=== PATIENT | male | born 1940 | race Caucasian/White ===

== ENCOUNTER → 2017-10-19 17:43 | Outpatient (CLI) | payer MEDICARE, MEDICAID, SELFPAY ==
[2017-10-19 18:09] LABS: Add Manual Diff / Slide Review NO; Basophils Percent Auto 0.7 % (0-2); Eosinophils Percent Auto 4.5 % (2-4); Hemoglobin 13.8 g/dL (13.5-17.5); Lymphocytes Percent Auto 31.2 % (25-40); Mean Corpuscular HGB Conc 33.5 % (30-36); Mean Corpuscular Hemoglobin 31.6 PG (26-34); Mean Corpuscular Volume 94.3 fL (80-100); Monocytes Percent Auto 8.5 % (3-14); Neutrophils Absolute Auto 7100 /uL (3000-5900); Neutrophils Percent Auto 55.1 % (50-75); Platelet Count 271 X10^3/uL (150-400); Red Blood Cell Count 4.35 X10^6/uL (4.5-5.9); Red Cell Distribution Width 14.8 % (11.6-14.8); White Blood Cell Count 12.9 X10^3/uL (4.5-11.0)
[2017-10-19 18:22] LABS: Alanine Aminotransferase 18 IU/L (21-72); Albumin 3.9 g/dL (3.5-5.0); Albumin Globulin Ratio 1.1 (1.0-2.8); Alkaline Phosphatase 71 U/L (38-126); Aspartate Aminotransferase 22 IU/L (17-59); BUN Creatinine Ratio 22.9 (6-22); Bilirubin Total 0.3 mg/dL (0.2-1.3); Blood Urea Nitrogen 16 mg/dL (9-20); Calcium 9.1 mg/dL (8.4-10.2); Carbon Dioxide 29 mmol/L (22-32); Chloride 99 mmol/L (98-107); Estimated Glomerular Filt Rate > 60.0 mL/min (>60); Globulin 3.7 g/dL (1.7-4.1); Glucose 134 mg/dL (80-110); HEMOLYSIS < 15 (0-50); Potassium 4.2 mmol/L (3.4-5.1); Sodium 140 mmol/L (137-145); Total Protein 7.6 g/dL (6.3-8.2)
[2018-11-05 10:42] LABS: Cholesterol 188 mg/dL (140-199); HDL Cholesterol 36 mg/dL (40-60); LDL Cholesterol Calculated 115 mg/dL (<100); Triglycerides 184 mg/dL (35-150)
[2018-11-05 10:43] LABS: Alanine Aminotransferase 17 IU/L (21-72); Albumin 3.8 g/dL (3.5-5.0); Albumin Globulin Ratio 1.2 (1.0-2.8); Alkaline Phosphatase 79 U/L (38-126); Aspartate Aminotransferase 22 IU/L (17-59); BUN Creatinine Ratio 17.5 (6-22); Bilirubin Total 0.6 mg/dL (0.2-1.3); Blood Urea Nitrogen 14 mg/dL (9-20); Calcium 9.3 mg/dL (8.4-10.2); Carbon Dioxide 33 mmol/L (22-32); Chloride 96 mmol/L (98-107); Estimated Glomerular Filt Rate > 60.0 mL/min (>60); Globulin 3.3 g/dL (1.7-4.1); Glucose 78 mg/dL (80-110); HEMOLYSIS < 15 (0-50); Potassium 4.4 mmol/L (3.4-5.1); Sodium 138 mmol/L (137-145); Total Protein 7.1 g/dL (6.3-8.2)
== END ==
PROVIDERS: Family Medicine; Visit Provider Family Medicine
DX: R00.1 Bradycardia, unspecified (principal); R60.0 Localized edema
CPT/HCPCS: 36415; 80053; 80061; 83036; 84443; 85025

== ENCOUNTER 2017-11-08 01:15 | Emergency (ER) | payer MEDICARE, MEDICAID, SELFPAY ==
--- NOTE | 2017-11-08 01:23 | ED.BACK ---
HPI - Back Pain/Injury General Chief Complaint: Back Pain/Injury Stated Complaint: Back Pain Time Seen by Provider: 11/08/17 01:22 Source: patient, family and EMS Mode of arrival: EMS Limitations: no limitations History of Present Illness HPI Narrative: Patient is a 69-year-old male presents with back pain. He said 4 days ago he tried to lift a mattress and strained his back. He denies any numbness or tingling down his legs. Has been so painful for him to move that he has been lying in bed. He is able to get up to use the restroom but that is about it. He was previously taking oxycodone for pain however he stopped that 2 days ago. He generally feels pain all over and some nausea. No vomiting. He has had diarrhea as well. He has had no further injury to his back. He did not fall directly onto his back. MD Complaint: fall Duration: constant Related Data Home Medications Medication Instructions Recorded Confirmed ASPIRIN (#ASPIRIN) 81 mg PO QDAY #0 01/07/11 Niacin (#NIACIN) 500 mg PO QDAY #0 01/07/11 Previous Rx's Medication Instructions Recorded atenolol 3 tab PO QDAY #270 tab 06/25/16 ammonium lactate 1 trini TOPICAL BID #225 gm 12/11/16 furosemide 2 mg PO QDAY #90 tab 02/10/17 levothyroxine 150 mcg PO QDAY@0600 #90 tab 03/06/17 mupirocin 1 trini TOPICAL BID #22 gm 03/06/17 potassium chloride 20 meq PO QDAY #180 cap 03/12/17 risperidone [Risperdal] 0.25 mg PO QHS #30 tab 05/29/17 lisinopril [Prinivil] 20 mg PO QDAY #90 tab 08/04/17 Disabled Parking Permit See Label Instructions 10/22/17 [id number] .COMPLEX #1 [id number] oxycodone-acetaminophen 7.5 mg-325 1 tab PO TID PRN #90 tab 10/22/17 mg tablet oxybutynin chloride ER 15 mg 15 mg PO DAILY #90 tab 10/27/17 tablet,extended release 24 hr escitalopram 20 mg tablet 20 mg PO QDAY #90 tab 10/28/17 omeprazole 40 mg capsule,delayed 40 mg PO QAM #90 cap 10/28/17 release cyclobenzaprine 5 mg PO TID PRN #10 tab 11/08/17 tramadol 50 mg PO Q6H PRN #10 tab 11/08/17 Allergies Allergy/AdvReac Type Severity Reaction Status Date / Time codeine [CODEINE] Allergy Unknown unknown Verified 11/08/17 01:40 Review of Systems Review of Systems All systems reviewed & are unremarkable except as noted in HPI and below Constitutional Reports body ache(s), Reports fatigue, Denies fever(s) and Denies frequent falls Cardiovascular Denies chest pain, Denies syncope and Denies dyspnea Respiratory Denies cough and Denies dyspnea Gastrointestinal Gastrointestinal: Reports loose stools and Reports nausea Musculoskeletal Reports as per HPI, Reports back pain, Denies numbness and Denies tingling Integumentary/Breasts Denies pruritus, Denies erythema, Denies rash and Denies wounds Neurologic Denies syncope, Denies frequent falls, Denies numbness and Denies tingling Endocrine Reports fatigue PFSH Medical History Lymphedema (Acute) Hypertension (Chronic) Morbid obesity (Chronic) Urinary incontinence (Chronic 2013) Social History Smoking Status: Never smoker Exam Initial Vital Signs Initial Vital Signs: Vital Signs Temperature 98.1 F 11/08/17 01:26 Pulse Rate 68 11/08/17 01:26 Respiratory Rate 18 11/08/17 01:26 Blood Pressure 160/81 H 11/08/17 01:26 Pulse Oximetry 96 11/08/17 01:26 Const General: cooperative and comfortable Nutritional Appearance: overweight Orientation: alert, awake and oriented x3 Chest Chest: normal inspection of the chest Resp Effort & Inspection: normal respiratory effort Cardio Rhythm: regular rhythm Heart Sounds: S1 normal and S2 normal GI Palpation: soft, No guarding and No tender Back/Spine/Pelvis Back: normal to inspection Thoracic/Lumbar Spine: paraspinal tenderness, No lumbar spinal tenderness and other (Pain all across all lower back and lumbar area) Neuro General: alert, awake and oriented x3 Cranial Nerves: CN's II-XI intact bilaterally Speech: speech normal Course Orders Ordered: Discontinued Medications Cyclobenzaprine HCl (Flexeril) 5 mg PO NOW ONE Stop: 11/08/17 01:25 Last Admin: 11/08/17 01:45 Dose: 5 mg Cyclobenzaprine HCl (Flexeril 10 Mg Prepack) 5 bottle [facility] Last Admin: 11/08/17 02:39 Dose: 1 bottle Cyclobenzaprine HCl (Flexeril 10 Mg Prepack) 1 bottle [facility] Ketorolac Tromethamine (Toradol) 30 mg IM NOW ONE Stop: 11/08/17 01:25 Last Admin: 11/08/17 01:44 Dose: 30 mg Tramadol HCl (Ultram 50mg Prepack) 1 bottle [facility] ONE Stop: 11/08/17 02:28 Last Admin: 11/08/17 02:34 Dose: 1 bottle Tramadol HCl (Ultram) 100 mg PO NOW ONE Stop: 11/08/17 02:28 Last Admin: 11/08/17 02:34 Dose: 100 mg Vital Signs - 8 hr 11/08/17 01:26 11/08/17 03:14 Temperature 98.1 F 98.8 F Pulse Rate 68 69 Respiratory Rate 18 18 Blood Pressure 160/81 H 181/83 H Pulse Oximetry 96 98 MDM - Back Pain/Injury MDM Narrative Medical decision making narrative: Patient's pain is slightly better after Toradol and Flexeril. He is able to stand and take a few steps with a walker. However he does have 3 short steps to get into his house. Now his back pain is slightly worse. Initially he did not want to get back on any kind of opiate or narcotic medications. However at this time he is agreeable to try tramadol. Pain better after tramadol and ready to go home. Discharge Plan Departure Patient Disposition: Home, Self-Care Clinical Impression: Strain of lumbar region Discharge Date/Time: 11/08/17 03:15 Interventions: ED Discharge Assessment Last Done: 11/08/17 03:14 Instructions: DI for Low Back Pain Activity Restrictions/Additional Instructions: *You have been diagnosed with low back strain *What to do: Increase activity as tolerated, light activity is encouraged, heating pad as needed *Continue to take medications as directed -Flexeril every 8 hr if needed for muscle spasm -Tylenol 500 mg every 4 hr or 1000 mg every 6 hr if needed for mild pain -Tramadol 50-100 mg every 6 hr if needed for severe pain *Follow up with your primary care provider in 2-3 days *Return to ER if you should have weakness, increasing pain, loss of urine or bowel or any new, worsening or concerning symptoms Prescriptions: New tramadol 50 mg tablet 50 mg PO Q6H PRN (Reason: pain) Qty: 10 RF: 0 cyclobenzaprine 5 mg tablet 5 mg PO TID PRN (Reason: muscle spasm) Qty: 10 RF: 0 No Action ASPIRIN (#ASPIRIN) 81 mg PO QDAY Qty: 0 RF: 0 Niacin (#NIACIN) 500 mg PO QDAY Qty: 0 RF: 0 atenolol 25 MG tablet 3 tab PO QDAY Qty: 270 RF: 3 ammonium lactate 12 % lotion 1 trini Topical BID Qty: 225 RF: 3 furosemide 40 MG tablet 2 mg PO QDAY Qty: 90 RF: 3 levothyroxine 150 MCG tablet 150 mcg PO QDAY@0600 Qty: 90 RF: 3 mupirocin 2 % ointment 1 trini Topical BID Qty: 22 RF: 0 potassium chloride 10 MEQ capsule, extended release 20 meq PO QDAY Qty: 180 RF: 1 risperidone [Risperdal] 0.25 MG tablet 0.25 mg PO QHS Qty: 30 RF: 3 lisinopril [Prinivil] 20 MG tablet 20 mg PO QDAY Qty: 90 RF: 3 oxybutynin chloride 15 mg tablet extended release 24hr 15 mg PO DAILY Qty: 90 RF: 3 escitalopram oxalate [Lexapro] 20 mg tablet 20 mg PO QDAY Qty: 90 RF: 1 omeprazole 40 mg capsule,delayed release(DR/EC) 40 mg PO QAM Qty: 90 RF: 1 Disabled Parking Permit See Label Instructions [id number] .COMPLEX Qty: 1 RF: 0 oxycodone-acetaminophen 7.5-325 mg tablet 1 tab PO TID PRN (Reason: pain) Qty: 90 RF: 0 Referrals: [facility] [Provider Group]
[2017-11-08 01:26] VITALS: BP 160/81; PULSE 68; RESP 18; TEMP 36.7; O2SAT 96; BMI 60.2
[2017-11-08] MEDS: KETOROLAC 60 MG/2 ML VIAL 30 MG IM (01:44)
[2017-11-08] MEDS: CYCLOBENZAPRINE 5 MG TABLET PO (01:45)
--- NOTE | 2017-11-08 02:11 | ED_ITS ---
HPI - Back Pain/Injury General Chief Complaint: Back Pain/Injury Stated Complaint: Back Pain Time Seen by Provider: 11/08/17 01:22 Source: patient, family and EMS Mode of arrival: EMS Limitations: no limitations History of Present Illness HPI Narrative: Patient is a 69-year-old male presents with back pain. He said 4 days ago he tried to lift a mattress and strained his back. He denies any numbness or tingling down his legs. Has been so painful for him to move that he has been lying in bed. He is able to get up to use the restroom but that is about it. He was previously taking oxycodone for pain however he stopped that 2 days ago. He generally feels pain all over and some nausea. No vomiting. He has had diarrhea as well. He has had no further injury to his back. He did not fall directly onto his back. MD Complaint: fall Duration: constant Related Data Home Medications Medication Instructions Recorded Confirmed ASPIRIN (#ASPIRIN) 81 mg PO QDAY #0 01/07/11 Niacin (#NIACIN) 500 mg PO QDAY #0 01/07/11 Previous Rx's Medication Instructions Recorded atenolol 3 tab PO QDAY #270 tab 06/25/16 ammonium lactate 1 trini TOPICAL BID #225 gm 12/11/16 furosemide 2 mg PO QDAY #90 tab 02/10/17 levothyroxine 150 mcg PO QDAY@0600 #90 tab 03/06/17 mupirocin 1 trini TOPICAL BID #22 gm 03/06/17 potassium chloride 20 meq PO QDAY #180 cap 03/12/17 risperidone [Risperdal] 0.25 mg PO QHS #30 tab 05/29/17 lisinopril [Prinivil] 20 mg PO QDAY #90 tab 08/04/17 Disabled Parking Permit See Label Instructions 10/22/17 [id number] .COMPLEX #1 [id number] oxycodone-acetaminophen 7.5 mg-325 1 tab PO TID PRN #90 tab 10/22/17 mg tablet oxybutynin chloride ER 15 mg 15 mg PO DAILY #90 tab 10/27/17 tablet,extended release 24 hr escitalopram 20 mg tablet 20 mg PO QDAY #90 tab 10/28/17 omeprazole 40 mg capsule,delayed 40 mg PO QAM #90 cap 10/28/17 release cyclobenzaprine 5 mg PO TID PRN #10 tab 11/08/17 tramadol 50 mg PO Q6H PRN #10 tab 11/08/17 Allergies Allergy/AdvReac Type Severity Reaction Status Date / Time codeine [CODEINE] Allergy Unknown unknown Verified 11/08/17 01:40 Review of Systems Review of Systems All systems reviewed & are unremarkable except as noted in HPI and below Constitutional Reports body ache(s), Reports fatigue, Denies fever(s) and Denies frequent falls Cardiovascular Denies chest pain, Denies syncope and Denies dyspnea Respiratory Denies cough and Denies dyspnea Gastrointestinal Gastrointestinal: Reports loose stools and Reports nausea Musculoskeletal Reports as per HPI, Reports back pain, Denies numbness and Denies tingling Integumentary/Breasts Denies pruritus, Denies erythema, Denies rash and Denies wounds Neurologic Denies syncope, Denies frequent falls, Denies numbness and Denies tingling Endocrine Reports fatigue PFSH Medical History Lymphedema (Acute) Hypertension (Chronic) Morbid obesity (Chronic) Urinary incontinence (Chronic 2013) Social History Smoking Status: Never smoker Exam Initial Vital Signs Initial Vital Signs: Vital Signs Temperature 98.1 F 11/08/17 01:26 Pulse Rate 68 11/08/17 01:26 Respiratory Rate 18 11/08/17 01:26 Blood Pressure 160/81 H 11/08/17 01:26 Pulse Oximetry 96 11/08/17 01:26 Const General: cooperative and comfortable Nutritional Appearance: overweight Orientation: alert, awake and oriented x3 Chest Chest: normal inspection of the chest Resp Effort & Inspection: normal respiratory effort Cardio Rhythm: regular rhythm Heart Sounds: S1 normal and S2 normal GI Palpation: soft, No guarding and No tender Back/Spine/Pelvis Back: normal to inspection Thoracic/Lumbar Spine: paraspinal tenderness, No lumbar spinal tenderness and other (Pain all across all lower back and lumbar area) Neuro General: alert, awake and oriented x3 Cranial Nerves: CN's II-XI intact bilaterally Speech: speech normal Course Orders Ordered: Discontinued Medications Cyclobenzaprine HCl (Flexeril) 5 mg PO NOW ONE Stop: 11/08/17 01:25 Last Admin: 11/08/17 01:45 Dose: 5 mg Cyclobenzaprine HCl (Flexeril 10 Mg Prepack) [address] [facility] Last Admin: 11/08/17 02:39 Dose: 1 bottle Cyclobenzaprine HCl (Flexeril 10 Mg Prepack) [address] [facility] Ketorolac Tromethamine (Toradol) 30 mg IM NOW ONE Stop: 11/08/17 01:25 Last Admin: 11/08/17 01:44 Dose: 30 mg Tramadol HCl (Ultram 50mg Prepack) 1 bottle [facility] ONE Stop: 11/08/17 02:28 Last Admin: 11/08/17 02:34 Dose: 1 bottle Tramadol HCl (Ultram) 100 mg PO NOW ONE Stop: 11/08/17 02:28 Last Admin: 11/08/17 02:34 Dose: 100 mg Vital Signs - 8 hr 11/08/17 01:26 11/08/17 03:14 Temperature 98.1 F 98.8 F Pulse Rate 68 69 Respiratory Rate 18 18 Blood Pressure 160/81 H 181/83 H Pulse Oximetry 96 98 MDM - Back Pain/Injury MDM Narrative Medical decision making narrative: Patient's pain is slightly better after Toradol and Flexeril. He is able to stand and take a few steps with a walker. However he does have 3 short steps to get into his house. Now his back pain is slightly worse. Initially he did not want to get back on any kind of opiate or narcotic medications. However at this time he is agreeable to try tramadol. Pain better after tramadol and ready to go home. Discharge Plan Departure Patient Disposition: Home, Self-Care Clinical Impression: Strain of lumbar region Discharge Date/Time: 11/08/17 03:15 Interventions: ED Discharge Assessment Last Done: 11/08/17 03:14 Instructions: DI for Low Back Pain Activity Restrictions/Additional Instructions: *You have been diagnosed with low back strain *What to do: Increase activity as tolerated, light activity is encouraged, heating pad as needed *Continue to take medications as directed -Flexeril every 8 hr if needed for muscle spasm -Tylenol 500 mg every 4 hr or 1000 mg every 6 hr if needed for mild pain -Tramadol 50-100 mg every 6 hr if needed for severe pain *Follow up with your primary care provider in 2-3 days *Return to ER if you should have weakness, increasing pain, loss of urine or bowel or any new, worsening or concerning symptoms Prescriptions: New tramadol 50 mg tablet 50 mg PO Q6H PRN (Reason: pain) Qty: 10 RF: 0 cyclobenzaprine 5 mg tablet 5 mg PO TID PRN (Reason: muscle spasm) Qty: 10 RF: 0 No Action ASPIRIN (#ASPIRIN) 81 mg PO QDAY Qty: 0 RF: 0 Niacin (#NIACIN) 500 mg PO QDAY Qty: 0 RF: 0 atenolol 25 MG tablet 3 tab PO QDAY Qty: 270 RF: 3 ammonium lactate 12 % lotion 1 trini Topical BID Qty: 225 RF: 3 furosemide 40 MG tablet 2 mg PO QDAY Qty: 90 RF: 3 levothyroxine 150 MCG tablet 150 mcg PO QDAY@0600 Qty: 90 RF: 3 mupirocin 2 % ointment 1 trini Topical BID Qty: 22 RF: 0 potassium chloride 10 MEQ capsule, extended release 20 meq PO QDAY Qty: 180 RF: 1 risperidone [Risperdal] 0.25 MG tablet 0.25 mg PO QHS Qty: 30 RF: 3 lisinopril [Prinivil] 20 MG tablet 20 mg PO QDAY Qty: 90 RF: 3 oxybutynin chloride 15 mg tablet extended release 24hr 15 mg PO DAILY Qty: 90 RF: 3 escitalopram oxalate [Lexapro] 20 mg tablet 20 mg PO QDAY Qty: 90 RF: 1 omeprazole 40 mg capsule,delayed release(DR/EC) 40 mg PO QAM Qty: 90 RF: 1 Disabled Parking Permit See Label Instructions [id number] .COMPLEX Qty: 1 RF: 0 oxycodone-acetaminophen 7.5-325 mg tablet 1 tab PO TID PRN (Reason: pain) Qty: 90 RF: 0 Referrals: [facility] [Provider Group]
[2017-11-08] MEDS: TRAMADOL 50 MG PREPACK 1 BOTTLE MISC (02:34)
[2017-11-08] MEDS: TRAMADOL 50 MG TABLET 100 MG PO (02:34)
--- NOTE | 2017-11-08 02:38 | PC.NURSE ---
Pt unable to lift leg to step, Dr Romeo is aware, new orders received.
[2017-11-08] MEDS: CYCLOBENZAPRINE 10 MG PREPACK 5 BOTTLE MISC (02:39)
[2017-11-08 03:14] VITALS: BP 181/83; PULSE 69; RESP 18; TEMP 37.1; O2SAT 98
== END 2017-11-08 03:15 | disposition home or self-care (01) ==
PROVIDERS: Emergency Provider Emergency Medicine
DX: S39.012A Strain of muscle, fascia and tendon of lower back, initial encounter (principal); X50.9XXA Other and unspecified overexertion or strenuous movements or postures, initial encounter
CPT/HCPCS: 96372; 99282; 99283; J1885

== ENCOUNTER 2017-11-13 12:35 | Inpatient (IN) | payer MEDICARE, MEDICAID, SELFPAY ==
[2017-11-13] VITALS (8 sets, daily range): BP systolic 149–164; BP diastolic 71–95; PULSE 75–88; RESP 16–24; TEMP 36.3–36.7; O2SAT 95–97; BMI 57.9
--- NOTE | 2017-11-13 13:08 | ED.BACK ---
HPI - Back Pain/Injury <VICKY Lr - Last Filed: 11/13/17 22:08> General Chief Complaint: Back Pain/Injury Stated Complaint: back pain Time Seen by Provider: 11/13/17 13:08 Source: patient and family Limitations: no limitations History of Present Illness HPI Narrative: 77-year-old male with history of morbid obesity here for lower back pain. He states he has had lower back pain for the last several weeks. He was seen here in the emergency room last week and was prescribed tramadol which she states has been helping his pain. However he still having back pain and states has been having a hard time getting out of bed over the last several days. He reports that he actually fell today trying to get out of bed causing him to land on his buttocks area. He reports he has increased pain into his lumbar area since this timeframe. He states that he does have urinary incontinence however he states he has had this over the past year and is not a new finding. He denies having any loss of bowel control. He has good sensation to bilateral lower extremities. He denies any other injuries or concerns at this point. Complaint: back injury Related Data Home Medications Medication Instructions Recorded Confirmed aspirin 81 mg PO DAILY #0 01/07/11 11/13/17 atenolol 1 tab PO QDAY 11/13/17 11/14/17 furosemide 2 tab PO QDAY 11/13/17 11/13/17 Previous Rx's Medication Instructions Recorded ammonium lactate 1 trini TOPICAL BID #225 gm 12/11/16 levothyroxine 150 mcg PO QDAY@0600 #90 tab 03/06/17 potassium chloride 20 meq PO QDAY #180 cap 03/12/17 lisinopril [Prinivil] 20 mg PO QDAY #90 tab 08/04/17 Disabled Parking Permit See Label Instructions 10/22/17 [id number] .COMPLEX #1 [id number] escitalopram 20 mg tablet 20 mg PO QDAY #90 tab 10/28/17 omeprazole 40 mg capsule,delayed 40 mg PO QAM #90 cap 10/28/17 release Allergies Allergy/AdvReac Type Severity Reaction Status Date / Time codeine [CODEINE] Allergy Unknown unknown Verified 11/13/17 12:50 Review of Systems <VICKY Lr - Last Filed: 11/13/17 22:08> Constitutional Denies chills, Denies fever(s), Denies lethargy and Denies weakness Eyes Denies change in vision, Denies eye discharge, Denies irritation and Denies loss of vision ENT Ears, Nose, Mouth, and Throat: Denies change in voice, Denies neck pain and Denies sore throat Cardiovascular Denies chest pain, Denies irregular heart rhythm, Denies lightheadedness, Denies palpitations, Denies dyspnea, Denies dyspnea on exertion and Denies orthopnea Respiratory Denies cough, Denies dyspnea, Denies dyspnea on exertion and Denies wheezing Gastrointestinal Gastrointestinal: Denies abdominal pain, Denies change in bowel habits, Denies diarrhea, Denies nausea and Denies vomiting Genitourinary Denies hematuria, Denies flank pain, Denies urinary incontinence and Denies urinary urgency Musculoskeletal Reports back pain and Denies neck pain Integumentary/Breasts Denies pruritus, Denies erythema, Denies rash and Denies wounds Neurologic Denies confusion, Denies loss of vision and Denies weakness Psychiatric Denies anxiety, Denies confusion, Denies depression, Denies homicidal ideation and Denies suicidal ideation Endocrine Denies palpitations Hematologic/Lymphatic Denies easy bruising Allergic/Immunologic Denies wheezing Exam <Lázaro Galindo, [facility] - Last Filed: 11/13/17 22:08> Initial Vital Signs Initial Vital Signs: Vital Signs Temperature 97.8 F 11/13/17 12:50 Pulse Rate 86 11/13/17 12:50 Respiratory Rate 16 11/13/17 12:50 Blood Pressure 162/79 H 11/13/17 12:50 Pulse Oximetry 97 11/13/17 12:50 Const General: cooperative and well developed Nutritional Appearance: well nourished Orientation: alert, awake, oriented x3 and not confused [facility] Mouth: oral mucosae normal and moist mucous membranes Throat: tonsils normal and uvula midline Eyes Conjunctivae: conjunctivae normal Sclera: sclerae normal Pupils: PERRL EOM: EOM intact bilaterally Resp Effort & Inspection: normal respiratory effort, able to speak in complete sentences, no respiratory distress and no use of accessory muscles Auscultation: clear to auscultation bilaterally, no rales, no rhonchi and no wheezes Cardio Rate: regular rate Rhythm: regular rhythm Heart Sounds: no click, no gallops, no murmurs and no rubs GI Inspection: non-distended Palpation: soft, no hepatosplenomegaly, No guarding, No pulsatile mass and No tender Auscultation: normal bowel sounds Rectal Exam: visual inspection normal, normal sphincter tone and prostate normal Back/Spine/Pelvis Back: back tenderness Other: Tenderness into bilateral lumbar paraspinal. No deformities. No ecchymoses. Distal sensation is intact. Distal range of motion is intact. Unable to palpate distal pulses due to significant edema to bilateral lower extremities not new finding. Distal cap refill less than 2 sec. Skin General: no rashes or lesions noted, No jaundice and No petechiae Neuro General: alert, oriented x3, moves all extremities and no focal motor deficits Speech: speech normal Extrem Right lower extremity: edema Left lower extremity: edema <Giancarlo Drew MD - Last Filed: 11/16/17 08:37> Initial Vital Signs Initial Vital Signs: Vital Signs Temperature 97.8 F 11/13/17 12:50 Pulse Rate 86 11/13/17 12:50 Respiratory Rate 16 11/13/17 12:50 Blood Pressure 162/79 H 11/13/17 12:50 Pulse Oximetry 97 11/13/17 12:50 Course <VICKY Lr - Last Filed: 11/13/17 22:08> Orders Ordered: Hydrocodone Bitart/Acetaminophen ([place] 10/325) 1 tab PO Q4HR PRN PRN Reason: Pain, Moderate (4-6) Last Admin: 11/15/17 20:29 Dose: 1 tab Admin: 11/15/17 14:28 Dose: 1 tab Admin: 11/15/17 10:13 Dose: 1 tab Admin: 11/15/17 06:14 Dose: 1 tab Admin: 11/14/17 18:33 Dose: 1 tab Admin: 11/14/17 14:35 Dose: 1 tab Admin: 11/14/17 09:30 Dose: 1 tab Admin: 11/14/17 03:32 Dose: 1 tab Admin: 11/13/17 20:54 Dose: 1 tab Atenolol (Tenormin) 25 mg PO DAILY [facility] Last Admin: 11/15/17 08:57 Dose: 25 mg Enoxaparin Sodium (Lovenox) 40 mg SUBCUT DAILY [facility] Last Admin: 11/15/17 08:57 Dose: 40 mg Escitalopram Oxalate (Lexapro) 20 mg PO DAILY [facility] Last Admin: 11/15/17 08:57 Dose: 20 mg Hydromorphone HCl (Dilaudid) 1 mg IV Q3H PRN PRN Reason: Pain, Moderate (4-6) Last Admin: 11/15/17 22:47 Dose: 1 mg Lisinopril (Zestril) 20 mg PO DAILY [facility] Last Admin: 11/15/17 08:57 Dose: 20 mg Magnesium Hydroxide (Milk Of Magnesia) 30 ml PO DAILY PRN PRN Reason: Constipation Nystatin (Nystop) 1 applic TOP BID [facility] Last Admin: 11/15/17 20:03 Dose: 1 applic Admin: 11/15/17 14:14 Dose: 1 applic Pantoprazole Sodium (Protonix) 40 mg PO 0700 [facility] Last Admin: 11/16/17 07:34 Dose: 40 mg Admin: 11/15/17 06:01 Dose: 40 mg Admin: 11/14/17 07:00 Dose: 40 mg Sodium Chloride (Normal Saline 0.9% Flush) 10 ml IV BID [facility] Last Admin: 11/15/17 20:03 Dose: 10 ml Admin: 11/15/17 08:57 Dose: 10 ml Sodium Chloride (Normal Saline 0.9% Flush) 10 ml IV PRN PRN PRN Reason: Flush Discontinued Medications Aspirin (Aspirin Ec) 81 mg PO DAILY [facility] Atenolol (Tenormin) 25 mg PO NOW ONE Stop: 11/14/17 18:47 Last Admin: 11/14/17 19:37 Dose: 25 mg Enoxaparin Sodium (Lovenox) 40 mg SUBCUT DAILY [facility] Escitalopram Oxalate (Lexapro) 20 mg PO DAILY [facility] Levothyroxine Sodium (Synthroid) 150 mcg PO 0600 [facility] Lisinopril (Zestril) 20 mg PO DAILY [facility] Lisinopril (Zestril) 20 mg PO NOW ONE Stop: 11/14/17 18:47 Last Admin: 11/14/17 19:37 Dose: 20 mg Ondansetron HCl (Zofran) 4 mg IV Q6HR PRN PRN Reason: Nausea And Vomiting Potassium Chloride (Klor-Con M10) 20 meq PO DAILY [facility] Tramadol HCl (Ultram) 50 mg PO NOW ONE Stop: 11/13/17 13:50 Last Admin: 11/13/17 14:14 Dose: 50 mg Vital Signs - 8 hr 11/16/17 05:36 11/16/17 07:00 Temperature 98.5 F Pulse Rate 88 Respiratory Rate 18 Blood Pressure 146/68 H Pulse Oximetry 95 92 <Giancarlo Drew MD - Last Filed: 11/16/17 08:37> Orders Ordered: Hydrocodone Bitart/Acetaminophen ([place] 10/325) 1 tab PO Q4HR PRN PRN Reason: Pain, Moderate (4-6) Last Admin: 11/15/17 20:29 Dose: 1 tab Admin: 11/15/17 14:28 Dose: 1 tab Admin: 11/15/17 10:13 Dose: 1 tab Admin: 11/15/17 06:14 Dose: 1 tab Admin: 11/14/17 18:33 Dose: 1 tab Admin: 11/14/17 14:35 Dose: 1 tab Admin: 11/14/17 09:30 Dose: 1 tab Admin: 11/14/17 03:32 Dose: 1 tab Admin: 11/13/17 20:54 Dose: 1 tab Atenolol (Tenormin) 25 mg PO DAILY [facility] Last Admin: 11/15/17 08:57 Dose: 25 mg Enoxaparin Sodium (Lovenox) 40 mg SUBCUT DAILY [facility] Last Admin: 11/15/17 08:57 Dose: 40 mg Escitalopram Oxalate (Lexapro) 20 mg PO DAILY [facility] Last Admin: 11/15/17 08:57 Dose: 20 mg Hydromorphone HCl (Dilaudid) 1 mg IV Q3H PRN PRN Reason: Pain, Moderate (4-6) Last Admin: 11/15/17 22:47 Dose: 1 mg Lisinopril (Zestril) 20 mg PO DAILY [facility] Last Admin: 11/15/17 08:57 Dose: 20 mg Magnesium Hydroxide (Milk Of Magnesia) 30 ml PO DAILY PRN PRN Reason: Constipation Nystatin (Nystop) 1 applic TOP BID [facility] Last Admin: 11/15/17 20:03 Dose: 1 applic Admin: 11/15/17 14:14 Dose: 1 applic Pantoprazole Sodium (Protonix) 40 mg PO 0700 [facility] Last Admin: 11/16/17 07:34 Dose: 40 mg Admin: 11/15/17 06:01 Dose: 40 mg Admin: 11/14/17 07:00 Dose: 40 mg Sodium Chloride (Normal Saline 0.9% Flush) 10 ml IV BID [facility] Last Admin: 11/15/17 20:03 Dose: 10 ml Admin: 11/15/17 08:57 Dose: 10 ml Sodium Chloride (Normal Saline 0.9% Flush) 10 ml IV PRN PRN PRN Reason: Flush Discontinued Medications Aspirin (Aspirin Ec) 81 mg PO DAILY [facility] Atenolol (Tenormin) 25 mg PO NOW ONE Stop: 11/14/17 18:47 Last Admin: 11/14/17 19:37 Dose: 25 mg Enoxaparin Sodium (Lovenox) 40 mg SUBCUT DAILY [facility] Escitalopram Oxalate (Lexapro) 20 mg PO DAILY [facility] Levothyroxine Sodium (Synthroid) 150 mcg PO 0600 [facility] Lisinopril (Zestril) 20 mg PO DAILY [facility] Lisinopril (Zestril) 20 mg PO NOW ONE Stop: 11/14/17 18:47 Last Admin: 11/14/17 19:37 Dose: 20 mg Ondansetron HCl (Zofran) 4 mg IV Q6HR PRN PRN Reason: Nausea And Vomiting Potassium Chloride (Klor-Con M10) 20 meq PO DAILY [facility] Tramadol HCl (Ultram) 50 mg PO NOW ONE Stop: 11/13/17 13:50 Last Admin: 11/13/17 14:14 Dose: 50 mg Vital Signs - 8 hr 11/16/17 05:36 11/16/17 07:00 Temperature 98.5 F Pulse Rate 88 Respiratory Rate 18 Blood Pressure 146/68 H Pulse Oximetry 95 92 MDM - Back Pain/Injury <VICKY Lr - Last Filed: 11/13/17 22:08> Lab Data Result diagrams: 11/15/17 05:07 11/15/17 05:07 Lab Results 11/15/17 11/15/17 Range/Units 05:07 05:07 WBC 9.9 (4.5-11.0) X10^3/uL RBC 4.46 L (4.5-5.9) X10^6/uL Hgb 14.1 (13.5-17.5) g/dL Hct 41.9 (41-53) % MCV 93.9 (80-100) fL MCH 31.6 (26-34) PG MCHC 33.7 (30-36) % RDW 14.6 (11.6-14.8) % Plt Count 327 (150-400) X10^3/uL Neut % (Auto) 57.4 (50-75) % Lymph % (Auto) 24.1 L (25-40) % [place] % (Auto) 10.9 (3-14) % Eos % (Auto) 6.7 H (2-4) % Baso % (Auto) 0.9 (0-2) % Neut # (Auto) 5700 (5127-2161) /uL Sodium 137 (137-145) mmol/L Potassium 3.5 (3.4-5.1) mmol/L Chloride 99 (98-107) mmol/L Carbon Dioxide 32 (22-32) mmol/L BUN 10 (9-20) mg/dL Creatinine 0.60 L (0.66-1.25) mg/dL Estimated GFR > 60.0 (>60) mL/min BUN/Creatinine Ratio 16.7 (6-22) Glucose 105 (80-110) mg/dL Calcium 8.7 (8.4-10.2) mg/dL Total Bilirubin 0.5 (0.2-1.3) mg/dL AST 21 (17-59) IU/L ALT 21 (21-72) IU/L Alkaline Phosphatase 73 (38-126) U/L Total Protein 6.6 (6.3-8.2) g/dL Albumin 3.2 L (3.5-5.0) g/dL Globulin 3.4 (1.7-4.1) g/dL Albumin/Globulin Ratio 0.9 L (1.0-2.8) ECG Data Interpretation: Patient: Adiel Iniguez MR#: [id number] : 1940 Acct:[id number] Age/Sex: 77 / M Date of Service: 11/13/17 Loc: ED Accession Number: [id number] Procedure: CT lumbar spine wo con Ordering Provider: Lázaro Galindo PROCEDURE: CT LUMBAR SPINE WO CON INDICATIONS: Pain into lower back status post ground level fall today TECHNIQUE: Noncontrast 3 mm thick sections acquired from the T12 level to the sacrum. Sagittal and coronal reformats were constructed. For radiation dose reduction, the following was used: automated exposure control. COMPARISON: None. FINDINGS: Image quality: Excellent. Bones: There is normal bony alignment. Age indeterminant anterior wedge compression deformity involving L1 vertebral body is seen with up to 80% loss of L1 vertebral body height. Air is seen within the anterior portion of compressed L1 vertebral body with vacuum disc phenomenon is seen in T12-L1 and L1-2 levels. There is slight retropulsion of L1 posterior wall causing [id number] central canal stenosis at this level. Decreased intervertebral disc space and degenerative endplate changes also noted at L5-S1 level with vacuum disc phenomenon. No suspicious lytic or blastic bony lesions. Central spinal caliber is of normal overall caliber. No pars defects. T12-L1: No significant disc bulge, canal stenosis or neuroforamina narrowing. L1-L2: No significant disc bulge, canal stenosis or neuroforamina narrowing L2-L3: No significant disc bulge, canal stenosis or neural foramina narrowing. L3-L4: No significant disc bulge, canal stenosis or neural foramina narrowing. Bilateral facet arthrosis is seen.. L4-L5: There is suggestion of diffuse disc bulge and bilateral facet arthrosis causing mild to moderate central canal stenosis and bilateral neural foramina narrowing. L5-S1: There is diffuse disc bulge and bilateral facet arthrosis causing mild central canal stenosis and bilateral neuroforamina narrowing. Soft tissues: No retroperitoneal masses or hematomas. Visualized aorta is normal in caliber. IMPRESSION: 1. Age indeterminate anterior wedge compression deformity involving L1 vertebral body as described above with up to 80% loss of L1 vertebral body height anteriorly. Mild retropulsion of posterior wall causing mild central canal stenosis at L1 level. 2. Degenerative disc bulge and bilateral facet arthrosis at L4-5 and L5-S1 levels causing mild to moderate central canal stenosis and bilateral neural foramina narrowing. 3. No other compression fracture or traumatic spondylolisthesis. Dictated by: Prashant Jacobs M.D. on 11/13/2017 at 14:12 Approved by: Prashant Jacobs M.D. on 11/13/2017 at 14:23 MDM Narrative Medical decision making narrative: CT of the lumbar spine was obtained and shows compression fracture to L1 and also some stenosis to L4-L5 area. Compression fracture with undetermined age. Suspected that the compression fracture is cause of his pain and if he had this prior is cause of exacerbation of his pain. Patient states that he is unable to get out of bed and walk. Family states that they cannot move him due to his size at this timeframe. Discussed case with hospitalist agree to admit patient to observation. Discussed with family for family to look at care after discharge tomorrow or the next day either in a care facility or with family members. <Giancalro Drwe MD - Last Filed: 11/16/17 08:37> Lab Data Lab Results 11/15/17 11/15/17 Range/Units 05:07 05:07 WBC 9.9 (4.5-11.0) X10^3/uL RBC 4.46 L (4.5-5.9) X10^6/uL Hgb 14.1 (13.5-17.5) g/dL Hct 41.9 (41-53) % MCV 93.9 (80-100) fL MCH 31.6 (26-34) PG MCHC 33.7 (30-36) % RDW 14.6 (11.6-14.8) % Plt Count 327 (150-400) X10^3/uL Neut % (Auto) 57.4 (50-75) % Lymph % (Auto) 24.1 L (25-40) % [place] % (Auto) 10.9 (3-14) % Eos % (Auto) 6.7 H (2-4) % Baso % (Auto) 0.9 (0-2) % Neut # (Auto) 5700 (1231-4609) /uL Sodium 137 (137-145) mmol/L Potassium 3.5 (3.4-5.1) mmol/L Chloride 99 (98-107) mmol/L Carbon Dioxide 32 (22-32) mmol/L BUN 10 (9-20) mg/dL Creatinine 0.60 L (0.66-1.25) mg/dL Estimated GFR > 60.0 (>60) mL/min BUN/Creatinine Ratio 16.7 (6-22) Glucose 105 (80-110) mg/dL Calcium 8.7 (8.4-10.2) mg/dL Total Bilirubin 0.5 (0.2-1.3) mg/dL AST 21 (17-59) IU/L ALT 21 (21-72) IU/L Alkaline Phosphatase 73 (38-126) U/L Total Protein 6.6 (6.3-8.2) g/dL Albumin 3.2 L (3.5-5.0) g/dL Globulin 3.4 (1.7-4.1) g/dL Albumin/Globulin Ratio 0.9 L (1.0-2.8) Discharge Plan Departure Patient Disposition: Admitted As Inpatient Clinical Impression: Lower back pain Discharge Date/Time: 11/13/17 16:23 Interventions: ED Discharge Assessment Last Done: 11/13/17 16:22 Admit Date/Time: 11/13/17 16:00 Admit Provider: Augie Elkins <Giancarlo Drew MD - Last Filed: 11/16/17 08:37> Sign Out Provider Sign Out Attestation: The PA/TECHNICAL ASSOCIATE functioned independently for the care of this pt, I was available, but not asked to participate in care. I am unable to determine appropriateness of management without personally examining the pt.
--- NOTE | 2017-11-13 13:49 | DI.CT.S_ITS ---
PROCEDURE: CT LUMBAR SPINE WO CON INDICATIONS: Pain into lower back status post ground level fall today TECHNIQUE: Noncontrast 3 mm thick sections acquired from the T12 level to the sacrum. Sagittal and coronal reformats were constructed. For radiation dose reduction, the following was used: automated exposure control. COMPARISON: None. FINDINGS: Image quality: Excellent. Bones: There is normal bony alignment. Age indeterminant anterior wedge compression deformity involving L1 vertebral body is seen with up to 80% loss of L1 vertebral body height. Air is seen within the anterior portion of compressed L1 vertebral body with vacuum disc phenomenon is seen in T12-L1 and L1-2 levels. There is slight retropulsion of L1 posterior wall causing [id number] central canal stenosis at this level. Decreased intervertebral disc space and degenerative endplate changes also noted at L5-S1 level with vacuum disc phenomenon. No suspicious lytic or blastic bony lesions. Central spinal caliber is of normal overall caliber. No pars defects. T12-L1: No significant disc bulge, canal stenosis or neuroforamina narrowing. L1-L2: No significant disc bulge, canal stenosis or neuroforamina narrowing L2-L3: No significant disc bulge, canal stenosis or neural foramina narrowing. L3-L4: No significant disc bulge, canal stenosis or neural foramina narrowing. Bilateral facet arthrosis is seen.. L4-L5: There is suggestion of diffuse disc bulge and bilateral facet arthrosis causing mild to moderate central canal stenosis and bilateral neural foramina narrowing. L5-S1: There is diffuse disc bulge and bilateral facet arthrosis causing mild central canal stenosis and bilateral neuroforamina narrowing. Soft tissues: No retroperitoneal masses or hematomas. Visualized aorta is normal in caliber. IMPRESSION: 1. Age indeterminate anterior wedge compression deformity involving L1 vertebral body as described above with up to 80% loss of L1 vertebral body height anteriorly. Mild retropulsion of posterior wall causing mild central canal stenosis at L1 level. 2. Degenerative disc bulge and bilateral facet arthrosis at L4-5 and L5-S1 levels causing mild to moderate central canal stenosis and bilateral neural foramina narrowing. 3. No other compression fracture or traumatic spondylolisthesis. Dictated by: Prashant Jacobs M.D. on 11/13/2017 at 14:12 Approved by: Prashant Jacobs M.D. on 11/13/2017 at 14:23
[2017-11-13] MEDS: TRAMADOL 50 MG TABLET PO (14:14)
--- NOTE | 2017-11-13 15:00 | PC.NURSE ---
pt turned to exam skin and back with provider at bedside. no skin breakdown noted. No new orders at this time.
--- NOTE | 2017-11-13 18:03 | PM.HP.1 ---
History of Present Illness Date Patient Seen: 11/13/17 Time Patient Seen: 16:03 Chief complaint: back pain Narrative: Patient is a 77 years of age male who is morbidly obese who is had back pain for the last several weeks. He took a fall earlier today and has increased discomfort to his lower back. He lives alone locally. His son is nearby providing support. Patient was brought to the hospital because he can't care for himself. No recent fevers and chills no nausea vomiting no headache no head trauma no chest pain Patient History Medical History Lymphedema (Acute) Hypertension (Chronic) Morbid obesity (Chronic) Urinary incontinence (Chronic 2013) Family & Social History Social History: household members none Prior Living Arrangements Mobile home Safety & Behavioral: Feels Safe in Current Yes Environment Been Physically Hurt or No Threatened By a Person Suicidal Ideation Description None Suicide Plan Description No Plan Tobacco & Substance use: Smoking Status Former smoker alcohol intake current alcohol intake frequency holiday/special occasion Substance Use Type does not use Meds Home Medications Medication Instructions Recorded Confirmed Type aspirin 81 mg PO DAILY #0 01/07/11 11/13/17 History ammonium lactate 1 trini TOPICAL BID #225 gm 12/11/16 11/13/17 Rx levothyroxine 150 mcg PO QDAY@0600 #90 tab 03/06/17 11/13/17 Rx potassium chloride 20 meq PO QDAY #180 cap 03/12/17 11/13/17 Rx lisinopril [Prinivil] 20 mg PO QDAY #90 tab 08/04/17 11/13/17 Rx Disabled Parking Permit See Label Instructions 10/22/17 11/13/17 Rx [id number] .COMPLEX #1 [id number] escitalopram 20 mg tablet 20 mg PO QDAY #90 tab 10/28/17 11/13/17 Rx omeprazole 40 mg capsule,delayed 40 mg PO QAM #90 cap 10/28/17 11/13/17 Rx release atenolol 1 tab PO QDAY 11/13/17 11/13/17 History furosemide 2 tab PO QDAY 11/13/17 11/13/17 History Allergies Allergy/AdvReac Type Severity Reaction Status Date / Time codeine [CODEINE] Allergy Unknown unknown Verified 11/13/17 12:50 Review of Systems Review of Systems All systems reviewed & are unremarkable except as noted in HPI and below Exam Vital Signs (past 8 hours): - 11/13/17 12:50 11/13/17 14:29 11/13/17 16:12 Temperature 97.8 F Pulse Rate 86 75 81 Respiratory Rate 16 16 Blood Pressure 162/79 H Blood Pressure [Left Arm] 163/71 H 164/83 H Pulse Oximetry 97 95 97 11/13/17 16:20 Temperature 97.9 F Pulse Rate 75 Respiratory Rate 24 Blood Pressure 154/95 H Blood Pressure [Left Arm] Pulse Oximetry 95 Oxygen Delivery Method Room Air Narrative Exam Narrative: General appearance patient is morbidly obese as stated no apparent distress at rest Psychiatric Well oriented no apparent distress at rest mood is pleasant affect is appropriate Skin Patient with a stasis dermatitis to lower leg region bilateral. Small punctate sore on the lateral proximal aspect of the left leg. Eyes Pupils are equal round and reactive to light Ears nose and throat Hearing is grossly intact dentition is fair nose septum midline no bleeding Respiratory Obesity somewhat obscures exam airways are clear no crackles no wheezing fair air movement Cardiovascular Regular rate rhythm no murmur rubs or gallops distant heart sounds due to the obesity Gastrointestinal Morbidly obese nontender positive bowel sounds obesity ups obscures exam no bruits are noted no organomegaly noted Lymph nodes No lymphadenopathy notable to the groin or to the neck Musculoskeletal Strength appears to be symmetric no clubbing is noted range of motion appears normal Neurologic No focal neurologic changes cranial nerves 2-12 grossly intact proprioception appears intact Assessment & Plan Plan: Assessment/Plan Narrative: 1. Back pain Patient with several weeks of this back pain with increased discomfort after the fall earlier today. Patient is clearly morbidly obese in difficult to provide self-care. Patient's son notes the patient has recently got on Medicaid. He is trying to find an assisted living facility for his father. Will provide analgesic therapy with hydrocodone orally and Dilaudid IV for severe pain. I requested for PT and OT to evaluate patient. 2. Stasis dermatitis to legs bilaterally This is chronic in nature. Patient is followed by a clinic in outpatient setting to manage. 3. History of hypertension and hyperlipidemia continue his home medications as tolerated Discharge planning Patient will likely be in hospital for few days. He is coming in under observation. I spoke with the son about efforts to try to fine assistants or assisted living facility as soon as possible, if possible. Time Spent With Patient Time with patient: Greater than 35 minutes (55 min) Quality VTE Deep Vein Thrombosis/Pulmonary Embolism Present on Admission: No
[2017-11-13] MEDS: HYDROCODONE/ACET 10/325 TABLET 1 TAB PO (20:54)
[2017-11-14] VITALS (8 sets, daily range): BP systolic 148–162; BP diastolic 72–90; PULSE 72–91; RESP 16–18; TEMP 36.3–36.7; O2SAT 95–99
[2017-11-14] MEDS: HYDROCODONE/ACET 10/325 TABLET 1 TAB PO ×4 (03:32→18:33)
[2017-11-14] MEDS: PANTOPRAZOLE 40 MG TABLET PO (07:00)
--- NOTE | 2017-11-14 13:07 | CM.DANOTE ---
Patient is a 77 year old male who was admitted on 11/13/17 for Back Pain, Compression Fx. Pt has MCR and CHRIS for insurance and his PCP is not listed. EMR was reviewed. Per MD, pt has CPAP at baseline and having pain control issues and currently not a surgical candidate and currently OBS STATUS. PT/OT ordered and pending eval. SW met bedside with pt and Daughter Kandy Bernard ([phone]) and explained role and pt confirmed that he still lives in [place] in a mobile home alone with his son and DIL living locally. Pt recently was approved for Medicaid and [employer] CG and has a CG through [employer] for 4 hours a day a few days a week. Pt states that his DPOA is his son Isak and he has a hx of [place] but no hx of SNF. DIL states she has concerns about pt discharging back home below his baseline, which was challenging to care for at base, and is worried about his inability to ambulate on his own due to pain. SW discussed OBS STATUS and the requirements for Medicare to cover SNF rehab and the specific medical intervention criteria needing to be met to change pt to Inpt Status. Pt and DIL acknowledged their understanding and frustration. SW discussed possible Private pay SNF and pt currently not able to financially manage private pay at SNF. EVAN discussed calling pt's STEPHAN GERONIMO, [facility], and updating on pt status and requesting updated assessment from [facility] to determine if he qualifies for increased [facility] hours and pt and DIL willing to call and request SW fax clinicals to Tania Masters to review. EVAN provided [facility] [employer] and private pay CG list and encouraged family to call on pt's Medicaid LTC to determine if any other in-home or Respite may be covered. EVAN faxed STEPHAN Montiel pt's H&P and left a voicemail regarding pt's admit to the hospital. Plan: SW to follow closely to determine if pt will meet criteria for Inpt Status and PT/OT eval to determine d/c planning needs. Pt's current OBS STATUS is a barrier to SNF rehab if needed. GEOFF Pardo Discharge Planning/Care Management CM Discharge Assessment Start: 11/14/17 13:03 Freq: Status: Active Protocol: Document 11/14/17 13:03 BF (Rec: 11/14/17 13:07 [id number]) Discharge Planning Assessment Assigned Die Welder JD EDWARDS DEVELOPER History Provided By Patient Family Member Has Patient been admitted in last 30 No days? Is this patient on Medicare? Yes Is the admit diagnosis the same? Yes Comment compression fx, pain control issues Prior Living Arrangements Mobile home Household Members none Type of transporation used prior to Relies on Others admit Independent with ADL's No Is patient alert and oriented? Yes Needs Assistance With Bathing Meal Prep Managing Medications Home Chores / Shopping Caregiver for Another [place] [facility] Faxed Yes Hours / Month 48 Comment STEPHAN HUERTAS through [facility] 4 hrs a day a few days a week. STEPHAN GREONIMO is [facility]. Patient Discharge Plan Description Alf Facility Comment Currently OBS Status and could benefit from SNF but no financial means to private pay Transportation Arrangement Patient has local son and DIL support who have been bedside. Review Status In Process Next Review Type Discharge Review
--- NOTE | 2017-11-14 15:26 | PC.NURSE ---
shift note notified MD home meds needed to be ordered. Requested Nystatin for redness in skin folds. Pt denies pain at rest. 8/10 when needing to bed camarena. Needed 3-4p assist. Up with PT to chair.
--- NOTE | 2017-11-14 15:28 | PM.PN.1 ---
Exam Vital Signs (past 8 hours): - 11/14/17 07:30 11/14/17 09:00 11/14/17 11:00 Temperature 98.0 F 98.0 F Pulse Rate 72 89 Respiratory Rate 16 18 Blood Pressure 148/81 H 153/78 H Pulse Oximetry 97 97 95 Oxygen Delivery Method Room Air Oxygen Flow Rate 0 Narrative Exam Narrative: General morbidly obese male in NAD HEENT normocephalic atraumatic extraocular movement intact pupils equal round reactive fundi not fuse sclera nonicteric Lungs Clear to auscultation Heart regular rhythm S1-S2 was normal renal disease rubs gallops are present Abdomen obese benign bowel sounds active Extremities bilateral lower extremity edema left greater than right with left approximately 4+ in right 2 to 3+. There was erythema of the left lower extremity and a wound of the left lower extremity Assessment & Plan Plan: Assessment/Plan Narrative: 1. Back pain Per Dr. Eklins Patient with several weeks of this back pain with increased discomfort after the fall earlier today. Patient is clearly morbidly obese in difficult to provide self-care. Patient's son notes the patient has recently got on Medicaid. He is trying to find an assisted living facility for his father. Will provide analgesic therapy with hydrocodone orally and Dilaudid IV for severe pain. I requested for PT and OT to evaluate patient. Patient's pain is better control with the hydroxycodone that was ordered His pain is due to L1 compression fracture. He also has L4-5 and L5-S1 bilateral facet arthrosis with mild to moderate central canal stenosis and bilateral neural foraminal narrowing 2. Stasis dermatitis to legs bilaterally This is chronic in nature. Patient is followed by a clinic in outpatient setting to manage. Because of the wound of the left leg wound consult will be obtained 3. History of hypertension and hyperlipidemia continue his home medications as tolerated Disposition Dr. Elkins on admission talked to the son about finding caregivers or assisted living facility of for the patient as soon as possible Case Management will be helping with discharge Quality VTE Deep Vein Thrombosis/Pulmonary Embolism Present on Admission: No
--- NOTE | 2017-11-14 15:35 | PT.IIE ---
Medical History (Last Reviewed 11/13/17 @ 15:45 by VICKY Lr) Lymphedema (Acute) Hypertension (Chronic) Morbid obesity (Chronic) Urinary incontinence (Chronic 2013) Physical Therapy Inpatient Evaluation/Re-Eval M1 PT/OT-IP Prior Functional Status Start: 11/14/17 17:35 Freq: NEEDED Status: Active Protocol: Document 11/14/17 15:35 DLM (Rec: 11/14/17 17:59 DLM [id number]) Medical Review Prior Functional Status Medical History Reviewed Yes Diet/Fluid Consistency Regular Communication WNL Mobility and Gait Independent, occassional use of st cane, has 4WW but he only uses it in the community. Pt reports the 4WW does not fit into the house well. Activities of Daily Living and IADL's Independent, has been needing assist the last couple of weeks due to back pain, has been approved for [facility] caregiver 4 hrs/day a few days a week to help with housekeeping. His caregiver does not help with his mobility and is not physically able to help him. Prior Functional Level (Other details) 3 falls in the past week Social History Household Members none Living Arrangements Mobile home Number of Floors (Floors) One Floor Number of Stairs To Enter/Railing? 3 with one rail Home Environment Standard Height Toilet Tub/Shower Home Equipment Four Wheel Walker Straight Cane Tub Transfer Bench Lift Recliner Employment Status Retired Additional Social History Comment sleeps in bed, has CPAP M2 PT-IP Current Condition Start: 11/14/17 17:39 Freq: NEEDED Status: Active Protocol: Document 11/14/17 15:35 DLM (Rec: 11/14/17 17:59 DLM [id number]) Physical Therapy Current Condition Current Condition Evaluation Date 11/14/17 Treatment Diagnosis back pain, weakness, impaired gait Onset Date 11/13/17 Precautions Lumbar Precautions Log Roll No Twisting Limit Bending Lifting Restriction of 10 lbs Other Precautions use lumbar precautions to manage his back pain Weight Bearing Status Weight Bearing Status Full Weight Bearing M3 PT-IP Subjective Start: 11/14/17 17:39 Freq: NEEDED Status: Active Protocol: Document 11/14/17 15:35 DLM (Rec: 11/14/17 17:59 DLM [id number]) Subjective Physical Therapy Visit Type Type Initial Evaluation Visit Start Time 15:00 Visit Stop Time 15:35 Total Visit Minutes 35 Number of DRAWER IN STITCH BONDING MACHINE Visits 0 Physical Therapy Visit Comments Patient Comments His back pain got really bad after lifting up the end of his bed to get a rug under it about 2 weeks ago. He is surprised by how much strength he has lost recently. Therapy Pain Assessment Pain When Pain Assessed During Mobility Pain Present Pain Present Pain Reported Location Lower Back Intensity 6 Scale Used Numeric (1 - 10) Description Aching Pain Management Techniques Re-positioning M4 PT-IP Mobility and Gait Start: 11/14/17 17:39 Freq: NEEDED Status: Active Protocol: Document 11/14/17 15:35 DLM (Rec: 11/14/17 17:59 DLM [id number]) PT-Bed Mobility Assessment Rolling Type of Rolling Roll to Right Level of Assist Moderate Assistance Supine to Sit Supine to Sit Moderate Assistance 2 Person Assistance Head of Bed Elevated Bedrails Scooting Scooting to Edge of Bed Standby Assistance PT-Transfer Assessment Sit to and From Stand Sit to and from Stand Contact Guard Assistance Minimal Assistance Equipment Transfer Assistive Device Gait Belt Front Wheeled Walker Orthotic/Prosthetic Devices or Brace: No Transfers Transfer Destination Chair Transfer Technique Stand Step Pivot Transfer Ability Level of Assist Minimal Assistance Use of Upper Extremities Comments Mobility Comments he needs reminders to avoid twisting his back during functional mobility. During right sidelying to sit used the power lift on the bed to assist with coming to sitting, pt reports too much pain to do it without the extra assistance. A second person was present throughout this visit for safety. Gait Assessment Gait Gait Assistance Required: Contact Guard Assist Minimum Assistance Distance (Feet) (feet) 20 Assistive Devices Assistive Device Gait Belt Front Wheeled Walker Gait Deviations General Gait Pattern Wide Based Gait Factors Limiting Gait Function Factors Limiting Gait Function Decreased Activity Tolerance Decreased Strength Pain Poor Balance Comments Gait Comments he gets short of breath and fatigued with short distance of gait and needed a seated rest break, pt left up in recliner with call light close , he was positioned for comfort PT-Balance Assessment Sitting Balance and Reactions Static Sitting Balance Ability Good Dynamic Sitting Balance Ability Good Standing Balance and Reactions Static Standing Balance Ability Fair Dynamic Standing Balance Ability Fair Device Used FWW M5 PT-IP Objective Assessments Start: 11/14/17 17:39 Freq: NEEDED Status: Active Protocol: Document 11/14/17 15:35 DLM (Rec: 11/14/17 17:59 DLM [id number]) Orientation Orientation/Cognition Level of Alertness Alert Orientation Name Age Birthday Month Date Year Day of Week Place Situation Language Function Ability No Deficits Noted Safety Awareness Understands Safety Issues Memory Description No Deficits Noted Gross Range of Motion Upper Extremity ROM Assessment Within Functional Limits Lower Extremity ROM Assessment Within Functional Limits Impairments limitations due to his size Strength Upper Extremity Strength Assessment Within Functional Limits Lower Extremity Strength Assessment Bilaterally Impaired Comments Strength Comments generalized weakness in LE's, his mass makes positioning for manual muscle testing difficult, edema bilateral distal LE's with a small wound on left carvajal area Coordination Assessment Gross Coordination Gross Coordination WNL Sensation Assessment Sensation Gross Sensation WNL Muscle Tone Muscle Tone WNL Yes M6 PT-IP Treatment Start: 11/14/17 17:39 Freq: NEEDED Status: Active Protocol: Document 11/14/17 15:35 DLM (Rec: 11/14/17 17:59 DLM [id number]) Physical Therapy Treatment Education Education Provided Safety M7 PT-IP Assessment and Plan Start: 11/14/17 17:39 Freq: NEEDED Status: Active Protocol: Document 11/14/17 15:35 DLM (Rec: 11/14/17 17:59 DLM [id number]) PT Summary Assessment and Plan Potential Rehabilitation Potential Good Status of Condition at Evaluation Evolving Summary Impairments Pain Strength Balance Bed Mobility Transfers Gait Activity Tolerance Assessment Summary Pt presents with back pain and generalized weakness. He has had multiple falls at home. He presents with limited activity tolerance to day and great difficulty getting out of bed due to his back pain. Recommend he go to SNF rehab before returning home. He continues to be at high risk for falls. He lives alone and his family is close but he has no one who can stay with him and provide this level of physical assistance. Goals Bed Mobility Goal Minimal Assistance Transfer Goal Contact Guard Assistance Front Wheeled Walker Gait Goal Contact Guard Assistance Front Wheel Walker Gait Distance 50 feet Other Goals up and down 3 steps with rail and cane and min assist Days to Meet Goals 4 Frequency of Treatment Frequency Of Treatment Twice a Day Treatment Plan Physical Therapy Treatment Plan Bed Mobility Training Transfer Training Gait Training Therapeutic Exercise Balance Retraining Post Op Education Discharge Planning Hot or Cold Pack Neuromuscular Re-ed Coordination Retraining Manual Therapy Recommendations To Nursing Amount of Assist Needed 2 Person Assist Discharge Recommendations PT Discharge Recommendations SNF Rehab
--- NOTE | 2017-11-14 18:00 | OT.IP.EVAL ---
Past Medical History (Last Reviewed 11/13/17 @ 15:45 by VICKY Lr) Lymphedema (Acute) Hypertension (Chronic) Morbid obesity (Chronic) Urinary incontinence (Chronic 2013) Occupational Therapy Inpatient Evaluation/Re-Eval M1 PT/OT-IP Prior Functional Status Start: 11/14/17 17:35 Freq: NEEDED Status: Active Protocol: Document 11/14/17 15:35 DLM (Rec: 11/14/17 17:59 DLM [id number]) Medical Review Prior Functional Status Medical History Reviewed Yes Diet/Fluid Consistency Regular Communication WNL Mobility and Gait Independent, occassional use of st cane, has 4WW but he only uses it in the community. Pt reports the 4WW does not fit into the house well. Activities of Daily Living and IADL's Independent, has been needing assist the last couple of weeks due to back pain, has been approved for [employer] caregiver 4 hrs/day a few days a week to help with housekeeping. His caregiver does not help with his mobility and is not physically able to help him. Prior Functional Level (Other details) 3 falls in the past week Social History Household Members none Living Arrangements Mobile home Number of Floors (Floors) One Floor Number of Stairs To Enter/Railing? 3 with one rail Home Environment Standard Height Toilet Tub/Shower Home Equipment Four Wheel Walker Straight Cane Tub Transfer Bench Lift Recliner Employment Status Retired Additional Social History Comment sleeps in bed, has CPAP M2 OT-IP Current Condition Start: 11/14/17 17:35 Freq: Status: Active Protocol: Document 11/14/17 14:45 [facility] (Rec: 11/14/17 18:00 [facility] [id number]) Occupational Therapy Current Condition Current Condition Evaluation Date 11/14/17 Treatment Diagnosis Back pain,weakness. Diagnosis Onset Date 11/13/17 Weight Bearing Status Weight Bearing Status Weight Bear as Tolerated M3 OT- IP Subjective and Pain Start: 11/14/17 17:35 Freq: Status: Active Protocol: Document 11/14/17 14:45 [facility] (Rec: 11/14/17 18:00 [facility] [id number]) OT- Subjective Occupational Therapy Visit Type Type Initial Evaluation Visit Start Time 14:45 Visit Stop Time 15:35 Total Visit Minutes 50 Occupational Therapy Visit Comments Patient/Caregiver Goals Pt and family wanting pt to go to skilled rehab. OT Pain Assessment Pain When Pain Assessed During Mobility Pain Present Pain Present Pain Reported Location Lower Back Intensity 5 Scale Used Numeric (1 - 10) Management Techniques Re-positioning Timing of Activity with Medications M4 OT- IP ADL's Start: 11/14/17 17:35 Freq: Status: Active Protocol: Document 11/14/17 14:45 [facility] (Rec: 11/14/17 18:00 [facility] [id number]) OT [id number]-Csrypoi General Evaluation Self-Feeding Ability Independent OT ADL-Dressing General Eval Lower Body Dressing Ability Total Assistance Areas Needing Assistance Socks Assistive Devices Dressing Assistive Devices Vibratory Pile Driver Sock Aid Comments OT Dressing Comments Pt states wears slip on shoes at home. OT ADL-Toileting Comments OT Toileting Comments Pt states has toilet aid he uses for hygiene needs. M6 OT- IP Functional Cognition Start: 11/14/17 17:35 Freq: Status: Active Protocol: Document 11/14/17 14:45 [facility] (Rec: 11/14/17 18:00 [facility] [id number]) Cognitive Factors Limiting Selfcare Function Cognitive Ability Level of Alertness Alert Patient Orientation Name Place Situation Attention Span Ability Capable of Focused Attention Capable of Sustained Attention Ability to Follow Commands Able to Follow One Step Commands Able to Follow Multi-Step Commands Memory Description No Deficits Noted Safety Awareness No Deficits Noted Cognitive Comments Cognitive Assessment Comments No deficits seen for OT eval at this time. OT- Vision and Hearing OT- Hearing Assessment OT- Hearing Assessment WFL M7 OT- IP Mobility and Balance Start: 11/14/17 17:35 Freq: Status: Active Protocol: Document 11/14/17 14:45 [facility] (Rec: 11/14/17 18:00 [facility] [id number]) OT- Bed Mobility Assessment Rolling Type of Rolling Roll to Right Level of Assistance Moderate Assistance 2 Person Assistance Head of Bed Elevated Bedrails Supine to Sit Supine to Sit Assist Moderate Assistance 2 Person Assistance Head of Bed Elevated Bedrails OT-Transfer Assessment Sit to and From Stand Sit to and from Stand Minimal Assistance 1 Person Assistance Transfers Transfer Ability Minimal Assistance 1 Person Assistance Technique Transfer Destination Bed Chair Transfer Technique Stand Step Pivot Devices Transfer Assistive Devices Gait Belt Front Wheeled Walker Comments Mobility Comments 2nd person there for safety as pt a bit unsteady on his feet , in addition usually wears slip on shoes at home. OT- Gait Assessment Gait Gait Assistance Required: 1 Person Assist Assistive Devices Assistive Device Gait Belt Front Wheeled Walker OT- Balance Assessment Sitting Balance and Reactions Static Sitting Balance Ability Normal Dynamic Sitting Balance Ability Good Standing Balance and Reactions Static Standing Balance Ability Fair M8 OT- IP Objective Assessments Start: 11/14/17 17:35 Freq: Status: Active Protocol: Document 11/14/17 14:45 [facility] (Rec: 11/14/17 18:00 [facility] [id number]) OT Gross Range of Motion Upper Extremity Range of Motion Assessment Within Functional Limits OT Strength Upper Extremity Strength Assessment Within Functional Limits OT-Muscle Tone Assessment Muscle Tone WNL Yes M9 OT- IP Assessment and Plan Start: 11/14/17 17:35 Freq: Status: Active Protocol: Document 11/14/17 14:45 [facility] (Rec: 11/14/17 18:00 [facility] [id number]) OT Summary Assessment and Plan Potential Rehabilitation Potential Good Analytic Complexity at Evaluation Low Summary OT Impairments Pain Balance Functional Mobility Grooming Dressing Toileting Bathing Toilet Transfers Shower Transfers Progress Towards Goals Slow Progress due to Medical Issues Slow Progress due to Activity Tolerance Assessment Summary Pt main barrier is steps, decreased activity tolerance and balance, and now needing assist for ADL's and functional mobility. Pt has had 3 falls in the past week and would benefit from skilled rehab. Pt is a high fall risk . Goals Grooming Goal Standby Assistance Dressing Goal Standby Assistance Vibratory Pile Driver Sock Aid Toileting Goal Moderate Assistance Bathing Goal Moderate Assistance Toilet Transfer Goal Standby Assistance Shower Transfer Goal Contact Guard Assistance Patient/Caregiver Education Goal Caregiver Independent Assisting Patient Days to Meet Goals 5 Frequency of Treatment Frequency Of Treatment Once a Day Treatment Plan OT Treatment Plan ADL Training Functional Mobility Patient/Family Education Discharge Planning Other Treatment Recommendations and Next ADL's with AED, activity Treatment Focus tolerance with AED. Discharge Recommendations OT Discharge Recommendations SNF Rehab Home Equipment Needs Urinal, BSC
--- NOTE | 2017-11-14 19:26 | PC.NURSE ---
ruth ann note Pt c/o pain in low back with movement. Pt does well when standing erect. Pt able to stand from chair with one person assist and FWW. Needed 3 people to get pt from edge of bed to supine position. Medicated with one 10/ Grady for c/o 6/[address] back pain[address] in place for pt to use to reposition self in bed.
[2017-11-14] MEDS: LISINOPRIL 20 MG TABLET PO (19:37)
[2017-11-14] MEDS: ATENOLOL 25 MG TABLET PO (19:37)
[2017-11-15] VITALS (10 sets, daily range): BP systolic 130–173; BP diastolic 58–88; PULSE 54–75; RESP 16–18; TEMP 36.1–37; O2SAT 93–98
--- NOTE | 2017-11-15 00:53 | PC.NURSE ---
Planner/Scheduler Note: 0000: Pt awake, in bed with HOB elevated to sitting position. Alert, oriented to person and place. He states he can swallow pills whole. No facial droop noted. Speech is clear. He is [place]. He was able to swallow a pill and had no difficulty swallowing water with straw. He has a tremor in both hands (hx of Parkinsons). He denies any changes in vision, and has his glasses on. Both of his hearing aids are at bedside, on on his table and one in his rt ear. When asked why he was brought to [facility], he states that he does not know.
--- NOTE | 2017-11-15 01:07 | PC.NURSE ---
Product Safety Head Note: 0030: Awake, alert, resting in bed. Incontinent of urine: berhane care given, bed linens changed. Assisted to turn and reposition. Vital signs stable. Pt was able to assist with repositioning.
[2017-11-15 05:41] LABS: Add Manual Diff / Slide Review NO; Basophils Percent Auto 0.9 % (0-2); Eosinophils Percent Auto 6.7 % (2-4); Hematocrit 41.9 % (41-53); Hemoglobin 14.1 g/dL (13.5-17.5); Lymphocytes Percent Auto 24.1 % (25-40); Mean Corpuscular HGB Conc 33.7 % (30-36); Mean Corpuscular Hemoglobin 31.6 PG (26-34); Mean Corpuscular Volume 93.9 fL (80-100); Monocytes Percent Auto 10.9 % (3-14); Neutrophils Absolute Auto 5700 /uL (3000-5900); Neutrophils Percent Auto 57.4 % (50-75); Platelet Count 327 X10^3/uL (150-400); Red Blood Cell Count 4.46 X10^6/uL (4.5-5.9); Red Cell Distribution Width 14.6 % (11.6-14.8); White Blood Cell Count 9.9 X10^3/uL (4.5-11.0)
[2017-11-15 05:59] LABS: Alanine Aminotransferase 21 IU/L (21-72); Albumin 3.2 g/dL (3.5-5.0); Albumin Globulin Ratio 0.9 (1.0-2.8); Alkaline Phosphatase 73 U/L (38-126); Aspartate Aminotransferase 21 IU/L (17-59); BUN Creatinine Ratio 16.7 (6-22); Bilirubin Total 0.5 mg/dL (0.2-1.3); Blood Urea Nitrogen 10 mg/dL (9-20); Calcium 8.7 mg/dL (8.4-10.2); Carbon Dioxide 32 mmol/L (22-32); Chloride 99 mmol/L (98-107); Estimated Glomerular Filt Rate > 60.0 mL/min (>60); Globulin 3.4 g/dL (1.7-4.1); Glucose 105 mg/dL (80-110); HEMOLYSIS < 15 (0-50); Potassium 3.5 mmol/L (3.4-5.1); Sodium 137 mmol/L (137-145); Total Protein 6.6 g/dL (6.3-8.2)
[2017-11-15] MEDS: PANTOPRAZOLE 40 MG TABLET PO (06:01)
[2017-11-15] MEDS: HYDROCODONE/ACET 10/325 TABLET 1 TAB PO ×4 (06:14→20:29)
[2017-11-15] MEDS: ATENOLOL 25 MG TABLET PO (08:57)
[2017-11-15] MEDS: SODIUM CHLORIDE 0.9% FLUSH 10 ML IV ×2 (08:57→20:03)
[2017-11-15] MEDS: ENOXAPARIN 40 MG/0.4 ML SYRINGE SUBCUT (08:57)
[2017-11-15] MEDS: LISINOPRIL 20 MG TABLET PO (08:57)
[2017-11-15] MEDS: ESCITALOPRAM 10 MG TABLET 20 MG PO (08:57)
--- NOTE | 2017-11-15 12:21 | PT.IPTN ---
Physical Therapy Treatment Note M2 PT-IP Current Condition Start: 11/14/17 17:39 Freq: NEEDED Status: Active Protocol: Document 11/14/17 15:35 DLM (Rec: 11/14/17 17:59 DLM [id number]) Physical Therapy Current Condition Current Condition Evaluation Date 11/14/17 Treatment Diagnosis back pain, weakness, impaired gait Onset Date 11/13/17 Precautions Lumbar Precautions Log Roll No Twisting Limit Bending Lifting Restriction of 10 lbs Other Precautions use lumbar precautions to manage his back pain Weight Bearing Status Weight Bearing Status Full Weight Bearing M3 PT-IP Subjective Start: 11/14/17 17:39 Freq: NEEDED Status: Active Protocol: Document 11/15/17 09:15 [facility] (Rec: 11/15/17 12:21 [facility] [id number]) Subjective Physical Therapy Visit Type Type Treatment Note Visit Start Time 09:15 Visit Stop Time 09:31 Total Visit Minutes 16 Number of COMPOUNDING TECHNICIAN Visits 1 Physical Therapy Visit Comments Patient Comments Pt reports increase in pain today that is throbbing. Pt wants to return to bed. Therapy Pain Assessment Pain Present Pain Present Pain Reported Location Lower Back Intensity 6 Scale Used Numeric (1 - 10) Description Throbbing Pain Management Techniques Re-positioning M4 PT-IP Mobility and Gait Start: 11/14/17 17:39 Freq: NEEDED Status: Active Protocol: Document 11/15/17 09:15 [facility] (Rec: 11/15/17 12:21 [facility] [id number]) PT-Bed Mobility Assessment Sit to Supine Sit to Supine Moderate Assistance 1 Person Assistance Head of Bed Elevated Bedrails PT-Transfer Assessment Sit to and From Stand Sit to and from Stand Minimal Assistance 1 Person Assistance Equipment Transfer Assistive Device Gait Belt Front Wheeled Walker Orthotic/Prosthetic Devices or Brace: No Transfers Transfer Destination Bed Transfer Technique Stand Step Pivot Transfer Ability Level of Assist Minimal Assistance 1 Person Assistance Comments Mobility Comments Pt able to roll to right with use of top bed rail then needed Mod A getting legs onto bed. Pt able to adjust himself in bed for comfort. Gait Assessment Comments Gait Comments Pt could not tolerate gait due to pain level and wanted to go right to bed. PT-Balance Assessment Sitting Balance and Reactions Static Sitting Balance Ability Good Dynamic Sitting Balance Ability Good Standing Balance and Reactions Static Standing Balance Ability Fair Dynamic Standing Balance Ability Fair Device Used FWW M5 PT-IP Objective Assessments Start: 11/14/17 17:39 Freq: NEEDED Status: Active Protocol: Document 11/14/17 15:35 DLM (Rec: 11/14/17 17:59 DLM [id number]) Orientation Orientation/Cognition Level of Alertness Alert Orientation Name Age Birthday Month Date Year Day of Week Place Situation Language Function Ability No Deficits Noted Safety Awareness Understands Safety Issues Memory Description No Deficits Noted Gross Range of Motion Upper Extremity ROM Assessment Within Functional Limits Lower Extremity ROM Assessment Within Functional Limits Impairments limitations due to his size Strength Upper Extremity Strength Assessment Within Functional Limits Lower Extremity Strength Assessment Bilaterally Impaired Comments Strength Comments generalized weakness in LE's, his mass makes positioning for manual muscle testing difficult, edema bilateral distal LE's with a small wound on left carvajal area Coordination Assessment Gross Coordination Gross Coordination WNL Sensation Assessment Sensation Gross Sensation WNL Muscle Tone Muscle Tone WNL Yes M6 PT-IP Treatment Start: 11/14/17 17:39 Freq: NEEDED Status: Active Protocol: Document 11/14/17 15:35 DLM (Rec: 11/14/17 17:59 DLM [id number]) Physical Therapy Treatment Education Education Provided Safety M7 PT-IP Assessment and Plan Start: 11/14/17 17:39 Freq: NEEDED Status: Active Protocol: Document 11/15/17 09:15 [facility] (Rec: 11/15/17 12:21 [facility] [id number]) PT Summary Assessment and Plan Potential Rehabilitation Potential Good Status of Condition at Evaluation Evolving Summary Impairments Pain Strength Balance Bed Mobility Transfers Gait Activity Tolerance Assessment Summary Pt needs Min A for initial stance and Mod A of BLE with sit-supine. Pt having increased pain and did not think he could ambulate at this time. Goals Bed Mobility Goal Minimal Assistance Transfer Goal Contact Guard Assistance Front Wheeled Walker Gait Goal Contact Guard Assistance Front Wheel Walker Gait Distance 50 feet Other Goals up and down 3 steps with rail and cane and min assist Days to Meet Goals 4 Frequency of Treatment Frequency Of Treatment Twice a Day Treatment Plan Physical Therapy Treatment Plan Bed Mobility Training Transfer Training Gait Training Therapeutic Exercise Balance Retraining Post Op Education Discharge Planning Hot or Cold Pack Neuromuscular Re-ed Coordination Retraining Manual Therapy Recommendations To Nursing Amount of Assist Needed 2 Person Assist Discharge Recommendations PT Discharge Recommendations SNF Rehab
[2017-11-15] MEDS: NYSTATIN POWDER 30 GM 1 APPLIC TOP ×2 (14:14→20:03)
--- NOTE | 2017-11-15 15:34 | CM.DPNOTE ---
Meeting with patient and son/Isak: Had lengthy discussion with family regarding safe discharge home pending AL placement. Family's Discharge goals: Plan A- Assisted Living under Medicaid. Plan B- Home with HH/RN,PT,OT,bath aid, [facility] pending AL bed availability. Patient does have [facility]/jail care coverage, but family is unsure of rating. SW to call [facility] on Thursday to verify information and request reassessment. Family understands patient in observation status and going home is the likely plan, but patient is too weak to climb up the three stairs to get inside the home. Once inside the home patient able to use recliner and bed side commode, along with family support, HH and [facility]. Patient does have a lifeline in case of falls. Plan: Call [facility] to determine current rating, request reassessment and discuss AL placement need. Depending on timeline patient likely to discharge home with HH/PT,OT,RN,Bath Aid and [facility]IST. Family did not select agency and F2F and orders are still needed.
--- NOTE | 2017-11-15 16:13 | PT.IPTN ---
Physical Therapy Treatment Note M2 PT-IP Current Condition Start: 11/14/17 17:39 Freq: NEEDED Status: Active Protocol: Document 11/14/17 15:35 DLM (Rec: 11/14/17 17:59 DLM [id number]) Physical Therapy Current Condition Current Condition Evaluation Date 11/14/17 Treatment Diagnosis back pain, weakness, impaired gait Onset Date 11/13/17 Precautions Lumbar Precautions Log Roll No Twisting Limit Bending Lifting Restriction of 10 lbs Other Precautions use lumbar precautions to manage his back pain Weight Bearing Status Weight Bearing Status Full Weight Bearing M3 PT-IP Subjective Start: 11/14/17 17:39 Freq: NEEDED Status: Active Protocol: Document 11/15/17 15:45 [facility] (Rec: 11/15/17 16:13 [facility] [id number]) Subjective Physical Therapy Visit Type Type Treatment Note Visit Start Time 15:45 Visit Stop Time 16:00 Total Visit Minutes 15 Number of VP COMPLIANCE Visits 2 Physical Therapy Visit Comments Patient Comments Pt continues to refuse ambulation due to pain. Pt did agree to transfer to chair. Therapy Pain Assessment Pain When Pain Assessed During Mobility Pain Present Pain Present Pain Reported Location Lower Back Intensity 7 Scale Used Numeric (1 - 10) Description Throbbing Pain Management Techniques Re-positioning M4 PT-IP Mobility and Gait Start: 11/14/17 17:39 Freq: NEEDED Status: Active Protocol: Document 11/15/17 15:45 [facility] (Rec: 11/15/17 16:13 [facility] [id number]) PT-Bed Mobility Assessment Rolling Type of Rolling Roll to Right Level of Assist Moderate Assistance Supine to Sit Supine to Sit Moderate Assistance 2 Person Assistance Head of Bed Elevated Bedrails PT-Transfer Assessment Sit to and From Stand Sit to and from Stand Minimal Assistance 1 Person Assistance Equipment Transfer Assistive Device Gait Belt Front Wheeled Walker Orthotic/Prosthetic Devices or Brace: No Transfers Transfer Destination Chair Transfer Technique Stand Step Pivot Transfer Ability Level of Assist Minimal Assistance 1 Person Assistance Gait Assessment Comments Gait Comments Pt refused to ambulate due to pain. PT-Balance Assessment Sitting Balance and Reactions Static Sitting Balance Ability Good Dynamic Sitting Balance Ability Good Standing Balance and Reactions Static Standing Balance Ability Fair Dynamic Standing Balance Ability Fair Device Used FWW M5 PT-IP Objective Assessments Start: 11/14/17 17:39 Freq: NEEDED Status: Active Protocol: Document 11/14/17 15:35 DLM (Rec: 11/14/17 17:59 DLM [id number]) Orientation Orientation/Cognition Level of Alertness Alert Orientation Name Age Birthday Month Date Year Day of Week Place Situation Language Function Ability No Deficits Noted Safety Awareness Understands Safety Issues Memory Description No Deficits Noted Gross Range of Motion Upper Extremity ROM Assessment Within Functional Limits Lower Extremity ROM Assessment Within Functional Limits Impairments limitations due to his size Strength Upper Extremity Strength Assessment Within Functional Limits Lower Extremity Strength Assessment Bilaterally Impaired Comments Strength Comments generalized weakness in LE's, his mass makes positioning for manual muscle testing difficult, edema bilateral distal LE's with a small wound on left carvajal area Coordination Assessment Gross Coordination Gross Coordination WNL Sensation Assessment Sensation Gross Sensation WNL Muscle Tone Muscle Tone WNL Yes M6 PT-IP Treatment Start: 11/14/17 17:39 Freq: NEEDED Status: Active Protocol: Document 11/14/17 15:35 DLM (Rec: 11/14/17 17:59 DLM [id number]) Physical Therapy Treatment Education Education Provided Safety M7 PT-IP Assessment and Plan Start: 11/14/17 17:39 Freq: NEEDED Status: Active Protocol: Document 11/15/17 15:45 [facility] (Rec: 11/15/17 16:13 [facility] [id number]) PT Summary Assessment and Plan Potential Rehabilitation Potential Good Summary Impairments Pain Strength Balance Bed Mobility Transfers Gait Activity Tolerance Assessment Summary Pt needs Mod A for bed mobility supine-sit. Once pt is standing he appears to be steady but has limited activity tolerance and refused ambulation due to pain. Goals Bed Mobility Goal Minimal Assistance Transfer Goal Contact Guard Assistance Front Wheeled Walker Gait Goal Contact Guard Assistance Front Wheel Walker Gait Distance 50 feet Other Goals up and down 3 steps with rail and cane and min assist Days to Meet Goals 4 Frequency of Treatment Frequency Of Treatment Twice a Day Treatment Plan Physical Therapy Treatment Plan Bed Mobility Training Transfer Training Gait Training Therapeutic Exercise Balance Retraining Post Op Education Discharge Planning Hot or Cold Pack Neuromuscular Re-ed Coordination Retraining Manual Therapy Recommendations To Nursing Amount of Assist Needed 2 Person Assist Discharge Recommendations PT Discharge Recommendations SNF Rehab
--- NOTE | 2017-11-15 20:18 | PM.PN.1 ---
Subjective Interval history: States his pain in his back is much better. He is able to stand and walk short distances. Exam Vital Signs (past 8 hours): - 11/15/17 15:46 11/15/17 16:45 Temperature 98.1 F Pulse Rate 69 Respiratory Rate 16 Blood Pressure 130/81 H Pulse Oximetry 95 94 Oxygen Delivery Method Room Air Oxygen Flow Rate 0 Narrative Exam Narrative: General morbidly obese male in NAD HEENT normocephalic atraumatic extraocular movement intact pupils equal round reactive fundi not fuse sclera nonicteric Lungs Clear to auscultation Heart regular rhythm S1-S2 was normal renal disease rubs gallops are present Abdomen obese benign bowel sounds active Extremities bilateral lower extremity edema left greater than right with left approximately 4+ in right 2 to 3+ left. There was erythema of the left lower extremity and a wound of the left lower extremity Neurologic grossly physiologic. He was seen going from his bed to the chair with assistance Psychiatric awake alert oriented x3 mood and affect are normal Objective Labs Result Diagrams: 11/15/17 05:07 11/15/17 05:07 Labs: Laboratory Results - last 24 hr 11/15/17 11/15/17 05:07 05:07 WBC 9.9 RBC 4.46 L Hgb 14.1 Hct 41.9 MCV 93.9 MCH 31.6 MCHC 33.7 RDW 14.6 Plt Count 327 Neut % (Auto) 57.4 Lymph % (Auto) 24.1 L Roberts % (Auto) 10.9 Eos % (Auto) 6.7 H Baso % (Auto) 0.9 Neut # (Auto) 5700 Sodium 137 Potassium 3.5 Chloride 99 Carbon Dioxide 32 BUN 10 Creatinine 0.60 L Estimated GFR > 60.0 BUN/Creatinine Ratio 16.7 Glucose 105 Calcium 8.7 Total Bilirubin 0.5 AST 21 ALT 21 Alkaline Phosphatase 73 Total Protein 6.6 Albumin 3.2 L Globulin 3.4 Albumin/Globulin Ratio 0.9 L Assessment & Plan Plan: Assessment/Plan Narrative: 1. Back pain His pain is due to L1 compression fracture. 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 Stasis dermatitis to legs bilaterally This is chronic in nature. Patient is followed by wound clinic in outpatient setting to manage. 3. History of hypertension and hyperlipidemia continue his home medications as tolerated Disposition Case management is helping with placement he will need SNF at discharge Quality VTE Deep Vein Thrombosis/Pulmonary Embolism Present on Admission: No
[2017-11-15] MEDS: HYDROMORPHONE 2 MG INJ 1 MG IV (22:47)
[2017-11-16] VITALS (8 sets, daily range): BP systolic 130–189; BP diastolic 66–85; PULSE 69–88; RESP 18–82; TEMP 36.4–36.9; O2SAT 92–98
--- NOTE | 2017-11-16 06:17 | PC.NURSE ---
[id number] Assumed care of Pt, denies needs at this time, respirations are even and unlabored at next check. IV HL, spo2 97% RA.
[2017-11-16] MEDS: PANTOPRAZOLE 40 MG TABLET PO (07:34)
[2017-11-16] MEDS: ENOXAPARIN 40 MG/0.4 ML SYRINGE SUBCUT (08:47)
[2017-11-16] MEDS: ATENOLOL 25 MG TABLET PO (08:47)
[2017-11-16] MEDS: SODIUM CHLORIDE 0.9% FLUSH 10 ML IV ×2 (08:47→21:59)
[2017-11-16] MEDS: ESCITALOPRAM 10 MG TABLET 20 MG PO (08:47)
[2017-11-16] MEDS: HYDROCODONE/ACET 10/325 TABLET 1 TAB PO ×2 (08:47→19:27)
[2017-11-16] MEDS: LISINOPRIL 20 MG TABLET PO (08:47)
--- NOTE | 2017-11-16 09:46 | PT.IPTN ---
Physical Therapy Treatment Note M2 PT-IP Current Condition Start: 11/14/17 17:39 Freq: NEEDED Status: Active Protocol: Document 11/14/17 15:35 DLM (Rec: 11/14/17 17:59 DLM [id number]) Physical Therapy Current Condition Current Condition Evaluation Date 11/14/17 Treatment Diagnosis back pain, weakness, impaired gait Onset Date 11/13/17 Precautions Lumbar Precautions Log Roll No Twisting Limit Bending Lifting Restriction of 10 lbs Other Precautions use lumbar precautions to manage his back pain Weight Bearing Status Weight Bearing Status Full Weight Bearing M3 PT-IP Subjective Start: 11/14/17 17:39 Freq: NEEDED Status: Active Protocol: Document 11/16/17 09:00 CLB (Rec: 11/16/17 09:46 CLB [id number]) Subjective Physical Therapy Visit Type Type Treatment Note Visit Start Time 09:00 Visit Stop Time 09:12 Total Visit Minutes 12 Number of INFANTRY OFFICER Visits 3 Physical Therapy Visit Comments Patient Comments Pt wanting to get back to bed due to pain while sitting in chair. Pt refused ambulation. Therapy Pain Assessment Pain When Pain Assessed At Rest Pain Present Pain Present Pain Reported Location Lower Back Intensity 8 Scale Used Numeric (1 - 10) Pain Management Techniques Re-positioning M4 PT-IP Mobility and Gait Start: 11/14/17 17:39 Freq: NEEDED Status: Active Protocol: Document 11/16/17 09:00 CLB (Rec: 11/16/17 09:46 CLB [id number]) PT-Bed Mobility Assessment Sit to Supine Sit to Supine Moderate Assistance 2 Person Assistance Head of Bed Elevated Bedrails Scooting Scooting Up and Down in Bed Minimal Assistance PT-Transfer Assessment Sit to and From Stand Sit to and from Stand Minimal Assistance 1 Person Assistance Equipment Transfer Assistive Device Gait Belt Front Wheeled Walker Orthotic/Prosthetic Devices or Brace: No Transfers Transfer Destination Bed Transfer Technique Stand Step Pivot Transfer Ability Level of Assist Minimal Assistance 1 Person Assistance Comments Mobility Comments Pt able to roll to right with use of top bed rail then needed Mod A getting legs onto bed. Pt able to adjust himself in bed for comfort. Gait Assessment Comments Gait Comments Pt refused to ambulate due to pain. PT-Balance Assessment Sitting Balance and Reactions Static Sitting Balance Ability Good Dynamic Sitting Balance Ability Good Standing Balance and Reactions Static Standing Balance Ability Fair Device Used FWW M5 PT-IP Objective Assessments Start: 11/14/17 17:39 Freq: NEEDED Status: Active Protocol: Document 11/14/17 15:35 DLM (Rec: 11/14/17 17:59 DLM [id number]) Orientation Orientation/Cognition Level of Alertness Alert Orientation Name Age Birthday Month Date Year Day of Week Place Situation Language Function Ability No Deficits Noted Safety Awareness Understands Safety Issues Memory Description No Deficits Noted Gross Range of Motion Upper Extremity ROM Assessment Within Functional Limits Lower Extremity ROM Assessment Within Functional Limits Impairments limitations due to his size Strength Upper Extremity Strength Assessment Within Functional Limits Lower Extremity Strength Assessment Bilaterally Impaired Comments Strength Comments generalized weakness in LE's, his mass makes positioning for manual muscle testing difficult, edema bilateral distal LE's with a small wound on left carvajal area Coordination Assessment Gross Coordination Gross Coordination WNL Sensation Assessment Sensation Gross Sensation WNL Muscle Tone Muscle Tone WNL Yes M6 PT-IP Treatment Start: 11/14/17 17:39 Freq: NEEDED Status: Active Protocol: Document 11/14/17 15:35 DLM (Rec: 11/14/17 17:59 DLM [id number]) Physical Therapy Treatment Education Education Provided Safety M7 PT-IP Assessment and Plan Start: 11/14/17 17:39 Freq: NEEDED Status: Active Protocol: Document 11/16/17 09:00 CLB (Rec: 11/16/17 09:46 CLB [id number]) PT Summary Assessment and Plan Potential Rehabilitation Potential Good Summary Impairments Pain Strength Balance Bed Mobility Transfers Gait Activity Tolerance Assessment Summary Pt continues to refuse ambulation due to pain. Pt needs cues to prevent twisting with bed mobility. Goals Bed Mobility Goal Minimal Assistance Transfer Goal Contact Guard Assistance Front Wheeled Walker Gait Goal Contact Guard Assistance Front Wheel Walker Gait Distance 50 feet Other Goals up and down 3 steps with rail and cane and min assist Days to Meet Goals 4 Frequency of Treatment Frequency Of Treatment Twice a Day Treatment Plan Physical Therapy Treatment Plan Bed Mobility Training Transfer Training Gait Training Therapeutic Exercise Balance Retraining Post Op Education Discharge Planning Hot or Cold Pack Neuromuscular Re-ed Coordination Retraining Manual Therapy Recommendations To Nursing Amount of Assist Needed 2 Person Assist Discharge Recommendations PT Discharge Recommendations SNF Rehab
[2017-11-16] MEDS: NYSTATIN POWDER 30 GM 1 APPLIC TOP ×2 (10:10→21:59)
--- NOTE | 2017-11-16 11:11 | PC.NURSE ---
AM Shift Patient c/o 5/10 pain with movement; 0 at rest. Gave patient berhane-care, applied nystatin to panus and groin folds. Got pt up to chair, 2PA, changed gown and linen due to episode of incontinence. Patient able to assist moderately, walker and double gate belt utilized, pt needs a lot of help exiting bed more so than ambulation. Patient reports he feels stead on feet, but weaker than normal. After 30 minutes in chair, pt requested to tranfers back to bed due to pain. Administered 10mg Harlan. Reassessed pain at 5/10, but states he is tolerating pain at rest.
--- NOTE | 2017-11-16 12:05 | PM.CN ---
History of Present Illness Date Patient Seen: 11/16/17 Time Patient Seen: 08:00 Chief complaint: back pain Reason for consult: left lower leg ulcer Requesting provider: Addie Luz Narrative: The patient's well known to the wound care clinic where we'stefano managed his venous ulcer and severe bilateral chronic venous hypertension in the past. He now has a new left lower leg venous ulcer that he feels may have been present for the last week or so. He does not report pain at the site but notes it has been draining a bit. He's also wearing compression stockings as recommended. [facility] Medical History Lymphedema (Acute) Hypertension (Chronic) Morbid obesity (Chronic) Urinary incontinence (Chronic 2013) Social History household members: none Smoking Status: Former smoker alcohol intake: current Meds Home Medications Medication Instructions Recorded Confirmed Type aspirin 81 mg PO DAILY #0 01/07/11 11/13/17 History ammonium lactate 1 trini TOPICAL BID #225 gm 12/11/16 11/13/17 Rx levothyroxine 150 mcg PO QDAY@0600 #90 tab 03/06/17 11/13/17 Rx potassium chloride 20 meq PO QDAY #180 cap 03/12/17 11/13/17 Rx lisinopril [Prinivil] 20 mg PO QDAY #90 tab 08/04/17 11/13/17 Rx Disabled Parking Permit See Label Instructions 10/22/17 11/14/17 Rx [id number] .COMPLEX #1 [id number] escitalopram 20 mg tablet 20 mg PO QDAY #90 tab 10/28/17 11/13/17 Rx omeprazole 40 mg capsule,delayed 40 mg PO QAM #90 cap 10/28/17 11/13/17 Rx release atenolol 1 tab PO QDAY 11/13/17 11/14/17 History furosemide 2 tab PO QDAY 11/13/17 11/13/17 History Allergies Allergy/AdvReac Type Severity Reaction Status Date / Time codeine [CODEINE] Allergy Unknown unknown Verified 11/13/17 12:50 Review of Systems Review of Systems All systems reviewed & are unremarkable except as noted in HPI and below Exam Vital Signs (past 8 hours): - 11/16/17 05:36 11/16/17 07:00 11/16/17 07:40 Temperature 98.5 F 97.6 F Pulse Rate 88 74 Respiratory Rate 18 22 Blood Pressure 146/68 H 189/75 H Pulse Oximetry 95 92 97 Oxygen Delivery Method Room Air Oxygen Flow Rate 0 Extrem Other: 3+ left lower leg edema; improved from last review in clinic; approx 2cm diameter ulcer extending to subcut over anterior aspect of left lower leg; no surrounding erythema or signs of clinically significant infection Objective Labs Result Diagrams: 11/15/17 05:07 11/15/17 05:07 Assessment & Plan (1) 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 I'd simply continue the current dressing regimen while he continues to wear this current compression stocking. Current visit: Yes Status: Acute
--- NOTE | 2017-11-16 12:11 | P.CONS_ITS ---
History of Present Illness Date Patient Seen: 11/16/17 Time Patient Seen: 08:00 Chief complaint: back pain Reason for consult: left lower leg ulcer Requesting provider: Addie Luz Narrative: The patient's well known to the wound care clinic where we'stefano managed his venous ulcer and severe bilateral chronic venous hypertension in the past. He now has a new left lower leg venous ulcer that he feels may have been present for the last week or so. He does not report pain at the site but notes it has been draining a bit. He's also wearing compression stockings as recommended. [facility] Medical History Lymphedema (Acute) Hypertension (Chronic) Morbid obesity (Chronic) Urinary incontinence (Chronic 2013) Social History household members: none Smoking Status: Former smoker alcohol intake: current Meds Home Medications Medication Instructions Recorded Confirmed Type aspirin 81 mg PO DAILY #0 01/07/11 11/13/17 History ammonium lactate 1 trini TOPICAL BID #225 gm 12/11/16 11/13/17 Rx levothyroxine 150 mcg PO QDAY@0600 #90 tab 03/06/17 11/13/17 Rx potassium chloride 20 meq PO QDAY #180 cap 03/12/17 11/13/17 Rx lisinopril [Prinivil] 20 mg PO QDAY #90 tab 08/04/17 11/13/17 Rx Disabled Parking Permit See Label Instructions 10/22/17 11/14/17 Rx [id number] .COMPLEX #1 [id number] escitalopram 20 mg tablet 20 mg PO QDAY #90 tab 10/28/17 11/13/17 Rx omeprazole 40 mg capsule,delayed 40 mg PO QAM #90 cap 10/28/17 11/13/17 Rx release atenolol 1 tab PO QDAY 11/13/17 11/14/17 History furosemide 2 tab PO QDAY 11/13/17 11/13/17 History Allergies Allergy/AdvReac Type Severity Reaction Status Date / Time codeine [CODEINE] Allergy Unknown unknown Verified 11/13/17 12:50 Review of Systems Review of Systems All systems reviewed & are unremarkable except as noted in HPI and below Exam Vital Signs (past 8 hours): - 11/16/17 05:36 11/16/17 07:00 11/16/17 07:40 Temperature 98.5 F 97.6 F Pulse Rate 88 74 Respiratory Rate 18 22 Blood Pressure 146/68 H 189/75 H Pulse Oximetry 95 92 97 Oxygen Delivery Method Room Air Oxygen Flow Rate 0 Extrem Other: 3+ left lower leg edema; improved from last review in clinic; approx 2cm diameter ulcer extending to subcut over anterior aspect of left lower leg; no surrounding erythema or signs of clinically significant infection Objective Labs Result Diagrams: 11/15/17 05:07 11/15/17 05:07 Assessment & Plan (1) 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 I'd simply continue the current dressing regimen while he continues to wear this current compression stocking. Current visit: Yes Status: Acute
--- NOTE | 2017-11-16 16:12 | PT.IPTN ---
Current Diagnoses Non-pressure chronic ulcer of unspecified part of left lower leg with fat layer exposed (11/13/17) Physical Therapy Treatment Note M2 PT-IP Current Condition Start: 11/14/17 17:39 Freq: NEEDED Status: Active Protocol: Document 11/14/17 15:35 DLM (Rec: 11/14/17 17:59 DLM [id number]) Physical Therapy Current Condition Current Condition Evaluation Date 11/14/17 Treatment Diagnosis back pain, weakness, impaired gait Onset Date 11/13/17 Precautions Lumbar Precautions Log Roll No Twisting Limit Bending Lifting Restriction of 10 lbs Other Precautions use lumbar precautions to manage his back pain Weight Bearing Status Weight Bearing Status Full Weight Bearing M3 PT-IP Subjective Start: 11/14/17 17:39 Freq: NEEDED Status: Active Protocol: Document 11/16/17 16:05 SAK (Rec: 11/16/17 16:08 SAK [id number]) Subjective Physical Therapy Visit Type Type Treatment Note Visit Start Time 15:15 Visit Stop Time 16:05 Total Visit Minutes 20 Number of GRAVEL ROOFER Visits 0 Physical Therapy Visit Comments Patient Comments Patient willing to ambulate. Up in chair. Therapy Pain Assessment Pain When Pain Assessed During Mobility Pain Present Pain Present Pain Reported M4 PT-IP Mobility and Gait Start: 11/14/17 17:39 Freq: NEEDED Status: Active Protocol: Document 11/16/17 16:09 SAK (Rec: 11/16/17 16:12 SAK [id number]) PT-Transfer Assessment Sit to and From Stand Sit to and from Stand Minimal Assistance 1 Person Assistance Equipment Transfer Assistive Device Gait Belt Front Wheeled Walker Orthotic/Prosthetic Devices or Brace: No Gait Assessment Gait Gait Assistance Required: Contact Guard Assist Minimum Assistance Distance (Feet) (feet) 20 Assistive Devices Assistive Device Gait Belt Front Wheeled Walker Gait Deviations General Gait Pattern Wide Based Gait Factors Limiting Gait Function Factors Limiting Gait Function Decreased Activity Tolerance Decreased Strength Pain Poor Balance Comments Gait Comments Improved tolerance for gait. O2 sats after gait 95%, fatigued. Patient positioned in reclining position in chair , pillows under legs, call light and tray table within reach. M5 PT-IP Objective Assessments Start: 11/14/17 17:39 Freq: NEEDED Status: Active Protocol: Document 11/14/17 15:35 DLM (Rec: 11/14/17 17:59 DLM [id number]) Orientation Orientation/Cognition Level of Alertness Alert Orientation Name Age Birthday Month Date Year Day of Week Place Situation Language Function Ability No Deficits Noted Safety Awareness Understands Safety Issues Memory Description No Deficits Noted Gross Range of Motion Upper Extremity ROM Assessment Within Functional Limits Lower Extremity ROM Assessment Within Functional Limits Impairments limitations due to his size Strength Upper Extremity Strength Assessment Within Functional Limits Lower Extremity Strength Assessment Bilaterally Impaired Comments Strength Comments generalized weakness in LE's, his mass makes positioning for manual muscle testing difficult, edema bilateral distal LE's with a small wound on left carvajal area Coordination Assessment Gross Coordination Gross Coordination WNL Sensation Assessment Sensation Gross Sensation WNL Muscle Tone Muscle Tone WNL Yes M6 PT-IP Treatment Start: 11/14/17 17:39 Freq: NEEDED Status: Active Protocol: Document 11/14/17 15:35 DLM (Rec: 11/14/17 17:59 DLM [id number]) Physical Therapy Treatment Education Education Provided Safety M7 PT-IP Assessment and Plan Start: 11/14/17 17:39 Freq: NEEDED Status: Active Protocol: Document 11/16/17 16:05 SAK (Rec: 11/16/17 16:08 SAK [id number]) PT Summary Assessment and Plan Potential Rehabilitation Potential Good Summary Impairments Pain Strength Balance Bed Mobility Transfers Gait Activity Tolerance Assessment Summary Pt continues to refuse ambulation due to pain. Pt needs cues to prevent twisting with bed mobility. Goals Bed Mobility Goal Minimal Assistance Transfer Goal Contact Guard Assistance Front Wheeled Walker Gait Goal Contact Guard Assistance Front Wheel Walker Gait Distance 50 feet Other Goals up and down 3 steps with rail and cane and min assist Days to Meet Goals 4 Frequency of Treatment Frequency Of Treatment Twice a Day Treatment Plan Physical Therapy Treatment Plan Bed Mobility Training Transfer Training Gait Training Therapeutic Exercise Balance Retraining Post Op Education Discharge Planning Hot or Cold Pack Neuromuscular Re-ed Coordination Retraining Manual Therapy Recommendations To Nursing Amount of Assist Needed 2 Person Assist Discharge Recommendations PT Discharge Recommendations SNF Rehab
--- NOTE | 2017-11-16 16:21 | OT.IP.TRT ---
Current Diagnoses Non-pressure chronic ulcer of unspecified part of left lower leg with fat layer exposed (11/13/17) Occupational Therapy Treatment Note M2 OT-IP Current Condition Start: 11/14/17 17:35 Freq: Status: Active Protocol: Document 11/14/17 14:45 [facility] (Rec: 11/14/17 18:00 [facility] [id number]) Occupational Therapy Current Condition Current Condition Evaluation Date 11/14/17 Treatment Diagnosis Back pain,weakness. Diagnosis Onset Date 11/13/17 Weight Bearing Status Weight Bearing Status Weight Bear as Tolerated M3 OT- IP Subjective and Pain Start: 11/14/17 17:35 Freq: Status: Active Protocol: Document 11/16/17 15:35 [facility] (Rec: 11/16/17 16:21 [facility] [id number]) OT- Subjective Occupational Therapy Visit Type Type Treatment Note Visit Start Time 15:35 Visit Stop Time 16:05 Total Visit Minutes 30 Occupational Therapy Visit Comments Patient/Caregiver Goals Pt still wanting to go to skilled rehab when medically stable. OT Pain Assessment Pain When Pain Assessed At Rest Pain Present Pain Present Denied Pain M4 OT- IP ADL's Start: 11/14/17 17:35 Freq: Status: Active Protocol: Document 11/14/17 14:45 [facility] (Rec: 11/14/17 18:00 [facility] [id number]) OT [id number] General Evaluation Self-Feeding Ability Independent OT ADL-Dressing General Eval Lower Body Dressing Ability Total Assistance Areas Needing Assistance Socks Assistive Devices Dressing Assistive Devices Pt Escort Sock Aid Comments OT Dressing Comments Pt states wears slip on shoes at home. OT ADL-Toileting Comments OT Toileting Comments Pt states has toilet aid he uses for hygiene needs. M6 OT- IP Functional Cognition Start: 11/14/17 17:35 Freq: Status: Active Protocol: Document 11/16/17 15:35 [facility] (Rec: 11/16/17 16:21 [facility] [id number]) Cognitive Factors Limiting Selfcare Function Cognitive Ability Level of Alertness Alert Patient Orientation Name Place Situation Attention Span Ability Capable of Focused Attention Capable of Sustained Attention Ability to Follow Commands Able to Follow One Step Commands Able to Follow Multi-Step Commands Memory Description No Deficits Noted Safety Awareness No Deficits Noted M7 OT- IP Mobility and Balance Start: 11/14/17 17:35 Freq: Status: Active Protocol: Document 11/16/17 15:35 [facility] (Rec: 11/16/17 16:21 [facility] [id number]) OT- Bed Mobility Assessment Rolling Type of Rolling Roll to Right Level of Assistance Maximum Assistance 1 Person Assistance Supine to Sit Supine to Sit Assist Maximum Assistance 1 Person Assistance Head of Bed Elevated Bedrails Scooting Scooting to Edge of Bed Maximum Assistance 1 Person Assistance OT-Transfer Assessment Sit to and From Stand Sit to and from Stand Contact Guard Assistance Transfers Transfer Ability Contact Guard Assistance Minimal Assistance Technique Transfer Destination Bed Chair Transfer Technique Stand Step Pivot Devices Transfer Assistive Devices Gait Belt Front Wheeled Walker M8 OT- IP Objective Assessments Start: 11/14/17 17:35 Freq: Status: Active Protocol: Document 11/14/17 14:45 [facility] (Rec: 11/14/17 18:00 [facility] [id number]) OT Gross Range of Motion Upper Extremity Range of Motion Assessment Within Functional Limits OT Strength Upper Extremity Strength Assessment Within Functional Limits OT-Muscle Tone Assessment Muscle Tone WNL Yes M9 OT- IP Assessment and Plan Start: 11/14/17 17:35 Freq: Status: Active Protocol: Document 11/16/17 15:35 [facility] (Rec: 11/16/17 16:21 [facility] [id number]) OT Summary Assessment and Plan Potential Rehabilitation Potential Good Analytic Complexity at Evaluation Low Summary OT Impairments Pain Balance Functional Mobility Grooming Dressing Toileting Bathing Toilet Transfers Shower Transfers Progress Towards Goals Progressing Toward Goals Assessment Summary Pt doing better with bed mobility but still needing MAX A x 1 for assist for bed mobility and extensive assist for ADl needs. Pt to go to skilled rehab when medically stable. Goals Days to Meet Goals 4 Frequency of Treatment Frequency Of Treatment Once a Day Treatment Plan OT Treatment Plan ADL Training Functional Mobility Patient/Family Education Discharge Planning Other Treatment Recommendations and Next ADL's with AED, activity Treatment Focus tolerance with AED. Discharge Recommendations OT Discharge Recommendations SNF Rehab Home Equipment Needs Urinal, BSC
--- NOTE | 2017-11-16 16:35 | OT.IP.TRT ---
Current Diagnoses Morbid (severe) obesity due to excess calories (11/13/17) Non-pressure chronic ulcer of unspecified part of left lower leg with fat layer exposed (11/13/17) Low back pain (11/13/17) Localized edema (11/13/17) Strain of muscle, fascia and tendon of lower back, initial encounter (11/13/17) Occupational Therapy Treatment Note M2 OT-IP Current Condition Start: 11/14/17 17:35 Freq: Status: Active Protocol: Document 11/14/17 14:45 [facility] (Rec: 11/14/17 18:00 [facility] [id number]) Occupational Therapy Current Condition Current Condition Evaluation Date 11/14/17 Treatment Diagnosis Back pain,weakness. Diagnosis Onset Date 11/13/17 Weight Bearing Status Weight Bearing Status Weight Bear as Tolerated M3 OT- IP Subjective and Pain Start: 11/14/17 17:35 Freq: Status: Active Protocol: Document 11/16/17 15:35 [facility] (Rec: 11/16/17 16:21 [facility] [id number]) OT- Subjective Occupational Therapy Visit Type Type Treatment Note Visit Start Time 15:35 Visit Stop Time 16:05 Total Visit Minutes 30 Occupational Therapy Visit Comments Patient/Caregiver Goals Pt still wanting to go to skilled rehab when medically stable. OT Pain Assessment Pain When Pain Assessed At Rest Pain Present Pain Present Denied Pain M4 OT- IP ADL's Start: 11/14/17 17:35 Freq: Status: Active Protocol: Document 11/14/17 14:45 [facility] (Rec: 11/14/17 18:00 [facility] [id number]) OT DPN-Mqje-Amlnsin General Evaluation Self-Feeding Ability Independent OT ADL-Dressing General Eval Lower Body Dressing Ability Total Assistance Areas Needing Assistance Socks Assistive Devices Dressing Assistive Devices Loan Underwriter Sock Aid Comments OT Dressing Comments Pt states wears slip on shoes at home. OT ADL-Toileting Comments OT Toileting Comments Pt states has toilet aid he uses for hygiene needs. M6 OT- IP Functional Cognition Start: 11/14/17 17:35 Freq: Status: Active Protocol: Document 11/16/17 15:35 [facility] (Rec: 11/16/17 16:21 [facility] [id number]) Cognitive Factors Limiting Selfcare Function Cognitive Ability Level of Alertness Alert Patient Orientation Name Place Situation Attention Span Ability Capable of Focused Attention Capable of Sustained Attention Ability to Follow Commands Able to Follow One Step Commands Able to Follow Multi-Step Commands Memory Description No Deficits Noted Safety Awareness No Deficits Noted M7 OT- IP Mobility and Balance Start: 11/14/17 17:35 Freq: Status: Active Protocol: Document 11/16/17 15:35 [facility] (Rec: 11/16/17 16:21 [facility] [id number]) OT- Bed Mobility Assessment Rolling Type of Rolling Roll to Right Level of Assistance Maximum Assistance 1 Person Assistance Supine to Sit Supine to Sit Assist Maximum Assistance 1 Person Assistance Head of Bed Elevated Bedrails Scooting Scooting to Edge of Bed Maximum Assistance 1 Person Assistance OT-Transfer Assessment Sit to and From Stand Sit to and from Stand Contact Guard Assistance Transfers Transfer Ability Contact Guard Assistance Minimal Assistance Technique Transfer Destination Bed Chair Transfer Technique Stand Step Pivot Devices Transfer Assistive Devices Gait Belt Front Wheeled Walker M8 OT- IP Objective Assessments Start: 11/14/17 17:35 Freq: Status: Active Protocol: Document 11/14/17 14:45 [facility] (Rec: 11/14/17 18:00 [facility] [id number]) OT Gross Range of Motion Upper Extremity Range of Motion Assessment Within Functional Limits OT Strength Upper Extremity Strength Assessment Within Functional Limits OT-Muscle Tone Assessment Muscle Tone WNL Yes M9 OT- IP Assessment and Plan Start: 11/14/17 17:35 Freq: Status: Active Protocol: Document 11/16/17 15:35 [facility] (Rec: 11/16/17 16:21 [facility] [id number]) OT Summary Assessment and Plan Potential Rehabilitation Potential Good Analytic Complexity at Evaluation Low Summary OT Impairments Pain Balance Functional Mobility Grooming Dressing Toileting Bathing Toilet Transfers Shower Transfers Progress Towards Goals Progressing Toward Goals Assessment Summary Pt doing better with bed mobility but still needing MAX A x 1 for assist for bed mobilty and extensive assist for ADl needs. Pt to go to skilled rehab when medically stable. Goals Days to Meet Goals 4 Frequency of Treatment Frequency Of Treatment Once a Day Treatment Plan OT Treatment Plan ADL Training Functional Mobility Patient/Family Education Discharge Planning Other Treatment Recommendations and Next ADL's with AED, activity Treatment Focus tolerance with AED. Discharge Recommendations OT Discharge Recommendations SNF Rehab Home Equipment Needs Urinal, BSC
--- NOTE | 2017-11-16 16:35 | PM.PN.1 ---
Subjective Date Patient Seen: 11/16/17 Interval history: Patient reports improved back pain. He continues to experience pain with minimal movement. Specifically he notes when bending sitting or lifting he has significant pain. Exam Vital Signs (past 8 hours): - 11/16/17 12:15 Temperature 97.7 F Pulse Rate 71 Respiratory Rate 71 H Blood Pressure 143/73 H Pulse Oximetry 95 Oxygen Delivery Method Room Air Oxygen Flow Rate 0 Narrative Exam Narrative: Morbidly obese male Lungs clear to auscultation Cardiac exam regular rate and rhythm normal S1 and S2 Abdomen soft nontender nondistended obese Extremity with 2+ pitting edema bilaterally. Excoriations of the lower extremities. 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 I'd simply continue the current dressing regimen while he continues to wear this current compression stocking. Current visit: Yes Status: Acute (2) Strain of lumbar region: Problem details: Patient will need continued physical therapy and occupational therapy. Agree with plan for senior living stay for rehabilitation Qualifiers: Encounter type: initial encounter Qualified Code(s): S39.012A - Strain of muscle, fascia and tendon of lower back, initial encounter Current visit: No Status: Acute (3) Lower back pain: Problem details: Same meds but Qualifiers: Back pain laterality: bilateral Chronicity: acute Sciatica laterality: Sciatica presence: without sciatica Qualified Code(s): M54.5 - Low back pain Current visit: Yes Status: Acute (4) Morbid obesity: Current visit: No Status: None (5) Edema of lower extremity: Problem details: Wound care consult with Dr. interiano for further recommendation Current visit: No Status: None Quality VTE Deep Vein Thrombosis/Pulmonary Embolism Present on Admission: No
--- NOTE | 2017-11-16 16:40 | P.PN_ITS ---
Subjective Date Patient Seen: 11/16/17 Interval history: Patient reports improved back pain. He continues to experience pain with minimal movement. Specifically he notes when bending sitting or lifting he has significant pain. Exam Vital Signs (past 8 hours): - 11/16/17 12:15 Temperature 97.7 F Pulse Rate 71 Respiratory Rate 71 H Blood Pressure 143/73 H Pulse Oximetry 95 Oxygen Delivery Method Room Air Oxygen Flow Rate 0 Narrative Exam Narrative: Morbidly obese male Lungs clear to auscultation Cardiac exam regular rate and rhythm normal S1 and S2 Abdomen soft nontender nondistended obese Extremity with 2+ pitting edema bilaterally. Excoriations of the lower extremities. 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 I'd simply continue the current dressing regimen while he continues to wear this current compression stocking. Current visit: Yes Status: Acute (2) Strain of lumbar region: Problem details: Patient will need continued physical therapy and occupational therapy. Agree with plan for custodial stay for rehabilitation Qualifiers: Encounter type: initial encounter Qualified Code(s): S39.012A - Strain of muscle, fascia and tendon of lower back, initial encounter Current visit: No Status: Acute (3) Lower back pain: Problem details: Same meds but Qualifiers: Back pain laterality: bilateral Chronicity: acute Sciatica laterality : Sciatica presence: without sciatica Qualified Code(s): M54.5 - Low back pain Current visit: Yes Status: Acute (4) Morbid obesity: Current visit: No Status: None (5) Edema of lower extremity: Problem details: Wound care consult with Dr. interiano for further recommendation Current visit: No Status: None Quality VTE Deep Vein Thrombosis/Pulmonary Embolism Present on Admission: No
[2017-11-16] MEDS: METHOCARBAMOL 500 MG TABLET PO (19:49)
--- NOTE | 2017-11-16 20:08 | PC.NURSE ---
Addendum entered by Delaney Roque R.N. 11/16/17 20:12: 1830- C/O back spasms, new order robaxin 500mg PO 1 tab. Given @ 1945. Family in room visiting. Call light in reach and bed alarm on. Original Note: 1829- C/O back pain, medicated with 10mg norco, effective Family in room visiting, son Isak from [facility].
[2017-11-17 00:55] VITALS: O2SAT 97
[2017-11-17] MEDS: HYDROCODONE/ACET 10/325 TABLET 1 TAB PO ×4 (00:56→17:22)
[2017-11-17] MEDS: SODIUM CHLORIDE 0.9% FLUSH 10 ML IV ×3 (00:58→21:40)
[2017-11-17 03:30] VITALS: BP 118/57; PULSE 67; RESP 17; TEMP 36.8; O2SAT 93
[2017-11-17] MEDS: PANTOPRAZOLE 40 MG TABLET PO (05:02)
--- NOTE | 2017-11-17 05:06 | PC.NURSE ---
Configuration Release Manager-Pt A&OX4, able to make needs known using call light. Pt inc large amount of urine and used urinal for approx 150mls of clear yellow urine, no BM overnight. O2 sat 97% on RA, AE clear and diminished. Uses own CPAP at night. RLE carvajal allevyn dressing CDI. Pt has own bilateral compression stockings on. BLE edema, LLE significantly more than compared to LLE, pt states this is his normal. 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 Repositioned in bed with 2PA, pt assists hold onto bed rails and can move BLE with some assist. Pt also uses bed trapeze for assistance. Rates 5/10 pain to mid lower back that is throbbing. [place] prn given at 0100 & 0505 with good effect.
[2017-11-17] MEDS: METHOCARBAMOL 500 MG TABLET PO (06:28)
[2017-11-17 07:00] VITALS: BP 124/60; PULSE 76; RESP 17; TEMP 36.6; O2SAT 93; O2SAT 94
[2017-11-17] MEDS: ESCITALOPRAM 10 MG TABLET 20 MG PO (07:58)
[2017-11-17] MEDS: ENOXAPARIN 40 MG/0.4 ML SYRINGE SUBCUT (07:58)
[2017-11-17] MEDS: LISINOPRIL 20 MG TABLET PO (07:59)
[2017-11-17] MEDS: ATENOLOL 25 MG TABLET PO (07:59)
[2017-11-17] MEDS: NYSTATIN POWDER 30 GM 1 APPLIC TOP (08:05)
--- NOTE | 2017-11-17 08:07 | OT.IP.TRT ---
Current Diagnoses Morbid (severe) obesity due to excess calories (11/13/17) Non-pressure chronic ulcer of unspecified part of left lower leg with fat layer exposed (11/13/17) Low back pain (11/13/17) Localized edema (11/13/17) Strain of muscle, fascia and tendon of lower back, initial encounter (11/13/17) Occupational Therapy Treatment Note M2 OT-IP Current Condition Start: 11/14/17 17:35 Freq: Status: Active Protocol: Document 11/14/17 14:45 [facility] (Rec: 11/14/17 18:00 [facility] [id number]) Occupational Therapy Current Condition Current Condition Evaluation Date 11/14/17 Treatment Diagnosis Back pain,weakness. Diagnosis Onset Date 11/13/17 Weight Bearing Status Weight Bearing Status Weight Bear as Tolerated M3 OT- IP Subjective and Pain Start: 11/14/17 17:35 Freq: Status: Active Protocol: Document 11/16/17 15:35 [facility] (Rec: 11/16/17 16:21 [facility] [id number]) OT- Subjective Occupational Therapy Visit Type Type Treatment Note Visit Start Time 15:35 Visit Stop Time 16:05 Total Visit Minutes 30 Occupational Therapy Visit Comments Patient/Caregiver Goals Pt still wanting to go to skilled rehab when medically stable. OT Pain Assessment Pain When Pain Assessed At Rest Pain Present Pain Present Denied Pain M4 OT- IP ADL's Start: 11/14/17 17:35 Freq: Status: Active Protocol: Document 11/14/17 14:45 [facility] (Rec: 11/14/17 18:00 [facility] [id number]) OT AOC-Riwy-Lagpqge General Evaluation Self-Feeding Ability Independent OT ADL-Dressing General Eval Lower Body Dressing Ability Total Assistance Areas Needing Assistance Socks Assistive Devices Dressing Assistive Devices Training Engineer Sock Aid Comments OT Dressing Comments Pt states wears slip on shoes at home. OT ADL-Toileting Comments OT Toileting Comments Pt states has toilet aid he uses for hygiene needs. M6 OT- IP Functional Cognition Start: 11/14/17 17:35 Freq: Status: Active Protocol: Document 11/16/17 15:35 [facility] (Rec: 11/16/17 16:21 [facility] [id number]) Cognitive Factors Limiting Selfcare Function Cognitive Ability Level of Alertness Alert Patient Orientation Name Place Situation Attention Span Ability Capable of Focused Attention Capable of Sustained Attention Ability to Follow Commands Able to Follow One Step Commands Able to Follow Multi-Step Commands Memory Description No Deficits Noted Safety Awareness No Deficits Noted M7 OT- IP Mobility and Balance Start: 11/14/17 17:35 Freq: Status: Active Protocol: Document 11/16/17 15:35 [facility] (Rec: 11/16/17 16:21 [facility] [id number]) OT- Bed Mobility Assessment Rolling Type of Rolling Roll to Right Level of Assistance Maximum Assistance 1 Person Assistance Supine to Sit Supine to Sit Assist Maximum Assistance 1 Person Assistance Head of Bed Elevated Bedrails Scooting Scooting to Edge of Bed Maximum Assistance 1 Person Assistance OT-Transfer Assessment Sit to and From Stand Sit to and from Stand Contact Guard Assistance Transfers Transfer Ability Contact Guard Assistance Minimal Assistance Technique Transfer Destination Bed Chair Transfer Technique Stand Step Pivot Devices Transfer Assistive Devices Gait Belt Front Wheeled Walker M8 OT- IP Objective Assessments Start: 11/14/17 17:35 Freq: Status: Active Protocol: Document 11/14/17 14:45 [facility] (Rec: 11/14/17 18:00 [facility] [id number]) OT Gross Range of Motion Upper Extremity Range of Motion Assessment Within Functional Limits OT Strength Upper Extremity Strength Assessment Within Functional Limits OT-Muscle Tone Assessment Muscle Tone WNL Yes M9 OT- IP Assessment and Plan Start: 11/14/17 17:35 Freq: Status: Active Protocol: Document 11/16/17 15:35 [facility] (Rec: 11/16/17 16:21 [facility] [id number]) OT Summary Assessment and Plan Potential Rehabilitation Potential Good Analytic Complexity at Evaluation Low Summary OT Impairments Pain Balance Functional Mobility Grooming Dressing Toileting Bathing Toilet Transfers Shower Transfers Progress Towards Goals Progressing Toward Goals Assessment Summary Pt doing better with bed mobility but still needing MAX A x 1 for assist for bed mobilty and extensive assist for ADl needs. Pt to go to skilled rehab when medically stable. Goals Days to Meet Goals 4 Frequency of Treatment Frequency Of Treatment Once a Day Treatment Plan OT Treatment Plan ADL Training Functional Mobility Patient/Family Education Discharge Planning Other Treatment Recommendations and Next ADL's with AED, activity Treatment Focus tolerance with AED. Discharge Recommendations OT Discharge Recommendations SNF Rehab Home Equipment Needs Urinal, BSC
--- NOTE | 2017-11-17 10:01 | OT.IP.TRT ---
Current Diagnoses Morbid (severe) obesity due to excess calories (11/13/17) Non-pressure chronic ulcer of unspecified part of left lower leg with fat layer exposed (11/13/17) Low back pain (11/13/17) Localized edema (11/13/17) Strain of muscle, fascia and tendon of lower back, initial encounter (11/13/17) Occupational Therapy Treatment Note M2 OT-IP Current Condition Start: 11/14/17 17:35 Freq: Status: Active Protocol: Document 11/14/17 14:45 [facility] (Rec: 11/14/17 18:00 [facility] [id number]) Occupational Therapy Current Condition Current Condition Evaluation Date 11/14/17 Treatment Diagnosis Back pain,weakness. Diagnosis Onset Date 11/13/17 Weight Bearing Status Weight Bearing Status Weight Bear as Tolerated M3 OT- IP Subjective and Pain Start: 11/14/17 17:35 Freq: Status: Active Protocol: Document 11/17/17 09:45 [facility] (Rec: 11/17/17 10:01 [facility] [id number]) OT- Subjective Occupational Therapy Visit Type Type Treatment Note Visit Start Time 08:35 Visit Stop Time 09:40 Total Visit Minutes 65 Occupational Therapy Visit Comments Patient Comments Pt agreeable to get up. OT Pain Assessment Pain When Pain Assessed At Rest Pain Present Pain Present Pain Reported Location Lower Back Intensity 4 Scale Used Numeric (1 - 10) Management Techniques Timing of Activity with Medications M4 OT- IP ADL's Start: 11/14/17 17:35 Freq: Status: Active Protocol: Document 11/17/17 09:45 [facility] (Rec: 11/17/17 10:01 [facility] [id number]) OT ADL-Grooming General Evaluation Grooming Ability Standby Assistance Areas Needing Assistance Retrieving/Set-up of Grooming Items Comments OT Grooming Comments Pt able to stand for grooming but has to sit 1/2 half through the task. OT ADL-Dressing General Eval Lower Body Dressing Ability Total Assistance Areas Needing Assistance Socks Comments OT Dressing Comments Pt states at home only wears slip on socks and robe. OT ADL-Toileting General Evaluation Toileting Ability Total Assistance Areas Needing Assistance Perform Perineal Hygiene Devices Toileting Assistive Devices Urinal Comments OT Toileting Comments Pt needed assist for placement of urinal and hygiene while sitting up in the recliner. M6 OT- IP Functional Cognition Start: 11/14/17 17:35 Freq: Status: Active Protocol: Document 11/17/17 09:45 [facility] (Rec: 11/17/17 10:01 [facility] [id number]) Cognitive Factors Limiting Selfcare Function Cognitive Ability Level of Alertness Alert Patient Orientation Name Place Situation Attention Span Ability Capable of Focused Attention Capable of Sustained Attention Ability to Follow Commands Able to Follow One Step Commands Able to Follow Multi-Step Commands Memory Description No Deficits Noted Safety Awareness No Deficits Noted M7 OT- IP Mobility and Balance Start: 11/14/17 17:35 Freq: Status: Active Protocol: Document 11/17/17 09:45 [facility] (Rec: 11/17/17 10:01 [facility] [id number]) OT- Bed Mobility Assessment Rolling Type of Rolling Roll to Right Level of Assistance Moderate Assistance 1 Person Assistance Supine to Sit Supine to Sit Assist Maximum Assistance 1 Person Assistance Head of Bed Elevated Bedrails Scooting Scooting to Edge of Bed Moderate Assistance 1 Person Assistance OT-Transfer Assessment Sit to and From Stand Sit to and from Stand Contact Guard Assistance Transfers Transfer Ability Contact Guard Assistance Technique Transfer Destination Bed Chair Wheelchair Transfer Technique Stand Step Pivot Devices Transfer Assistive Devices Gait Belt Front Wheeled Walker Comments Mobility Comments Pt states son to pick up man another FWW for home use as current FWW too wide for mobile home. Bariatric wc placed in room as recliner chair not comfortable for pt. Pt uses power lift chair to sleep in at home, therefore needing use of tilt and HOB up to assist pt for bed mobility needs. OT- Gait Assessment Gait Gait Assistance Required: 1 Person Assist Assistive Devices Assistive Device Gait Belt Front Wheeled Walker Comments Gait Ability Comments Pt able to walk short distances with FWW. Pt has good awareness for when he has to sit and rest. M8 OT- IP Objective Assessments Start: 11/14/17 17:35 Freq: Status: Active Protocol: Document 11/14/17 14:45 [facility] (Rec: 11/14/17 18:00 [facility] [id number]) OT Gross Range of Motion Upper Extremity Range of Motion Assessment Within Functional Limits OT Strength Upper Extremity Strength Assessment Within Functional Limits OT-Muscle Tone Assessment Muscle Tone WNL Yes M9 OT- IP Assessment and Plan Start: 11/14/17 17:35 Freq: Status: Active Protocol: Document 11/17/17 09:45 [facility] (Rec: 11/17/17 10:01 [facility] [id number]) OT Summary Assessment and Plan Summary Progress Towards Goals Progressing Toward Goals Assessment Summary Pt doing better with activity tolerance today but still main barrier is 3 steps with one rail at home. Pt would benefit from skilled rehab prior to going home. Goals Grooming Goal Independent Dressing Goal Standby Assistance Toileting Goal Moderate Assistance Bathing Goal Moderate Assistance Toilet Transfer Goal Standby Assistance Shower Transfer Goal Contact Guard Assistance Patient/Caregiver Education Goal Caregiver Independent Assisting Patient Days to Meet Goals 5 Frequency of Treatment Frequency Of Treatment Once a Day Treatment Plan OT Treatment Plan ADL Training Functional Mobility Patient/Family Education Discharge Planning Other Treatment Recommendations and Next ADL's with AED, activity Treatment Focus tolerance with AED. Discharge Recommendations OT Discharge Recommendations SNF Rehab Home Equipment Needs Urinal, BSC
[2017-11-17 11:00] VITALS: BP 143/70; PULSE 71; RESP 18; TEMP 36.6; O2SAT 94
[2017-11-17] MEDS: HYDROMORPHONE 2 MG INJ 1 MG IV (11:31)
--- NOTE | 2017-11-17 12:05 | PT.IPTN ---
Current Diagnoses Morbid (severe) obesity due to excess calories (11/13/17) Non-pressure chronic ulcer of unspecified part of left lower leg with fat layer exposed (11/13/17) Low back pain (11/13/17) Localized edema (11/13/17) Strain of muscle, fascia and tendon of lower back, initial encounter (11/13/17) Physical Therapy Treatment Note M2 PT-IP Current Condition Start: 11/14/17 17:39 Freq: NEEDED Status: Active Protocol: Document 11/14/17 15:35 DLM (Rec: 11/14/17 17:59 DLM [id number]) Physical Therapy Current Condition Current Condition Evaluation Date 11/14/17 Treatment Diagnosis back pain, weakness, impaired gait Onset Date 11/13/17 Precautions Lumbar Precautions Log Roll No Twisting Limit Bending Lifting Restriction of 10 lbs Other Precautions use lumbar precautions to manage his back pain Weight Bearing Status Weight Bearing Status Full Weight Bearing M3 PT-IP Subjective Start: 11/14/17 17:39 Freq: NEEDED Status: Active Protocol: Document 11/17/17 11:59 GGD (Rec: 11/17/17 12:05 GGD [email or web address]) Subjective Physical Therapy Visit Type Type Treatment Note Visit Start Time 11:40 Visit Stop Time 11:55 Total Visit Minutes 15 Number of COMPONENT PREP OPERATOR Visits 1 Physical Therapy Visit Comments Patient Comments Pt wants to get up. Therapy Pain Assessment Pain When Pain Assessed During Mobility Pain Present Pain Present Pain Reported Location Lower Back Intensity 9 Scale Used Numeric (1 - 10) Description Sharp Spasm Stabbing Pain Management Techniques Modification of Treatment Re-positioning Timing of Activity with Medications M4 PT-IP Mobility and Gait Start: 11/14/17 17:39 Freq: NEEDED Status: Active Protocol: Document 11/17/17 11:59 GGD (Rec: 11/17/17 12:05 GGD [email or web address]) PT-Bed Mobility Assessment Rolling Type of Rolling Roll to Right Level of Assist Maximal Assistance 2 Person Assistance Gait Assessment Comments Gait Comments Pt had increase in pain with all mobility. He was unable to assist with roll. Didn't attemt out of bed mobility, due to pain. M5 PT-IP Objective Assessments Start: 11/14/17 17:39 Freq: NEEDED Status: Active Protocol: Document 11/14/17 15:35 DLM (Rec: 11/14/17 17:59 DLM [id number]) Orientation Orientation/Cognition Level of Alertness Alert Orientation Name Age Birthday Month Date Year Day of Week Place Situation Language Function Ability No Deficits Noted Safety Awareness Understands Safety Issues Memory Description No Deficits Noted Gross Range of Motion Upper Extremity ROM Assessment Within Functional Limits Lower Extremity ROM Assessment Within Functional Limits Impairments limitations due to his size Strength Upper Extremity Strength Assessment Within Functional Limits Lower Extremity Strength Assessment Bilaterally Impaired Comments Strength Comments generalized weakness in LE's, his mass makes positioning for manual muscle testing difficult, edema bilateral distal LE's with a small wound on left carvajal area Coordination Assessment Gross Coordination Gross Coordination WNL Sensation Assessment Sensation Gross Sensation WNL Muscle Tone Muscle Tone WNL Yes M6 PT-IP Treatment Start: 11/14/17 17:39 Freq: NEEDED Status: Active Protocol: Document 11/17/17 11:59 GGD (Rec: 11/17/17 12:05 GGD [email or web address]) Physical Therapy Treatment Exercises Exercises Ankle Pumps Gluteal Sets Quad Sets Heel Slides M7 PT-IP Assessment and Plan Start: 11/14/17 17:39 Freq: NEEDED Status: Active Protocol: Document 11/17/17 11:59 GGD (Rec: 11/17/17 12:05 GGD [email or web address]) PT Summary Assessment and Plan Frequency of Treatment Frequency Of Treatment Twice a Day Treatment Plan Physical Therapy Treatment Plan Bed Mobility Training Transfer Training Gait Training Therapeutic Exercise Balance Retraining Post Op Education Discharge Planning Hot or Cold Pack Neuromuscular Re-ed Coordination Retraining Manual Therapy Recommendations To Nursing Amount of Assist Needed 2 Person Assist Discharge Recommendations PT Discharge Recommendations SNF Rehab Equipment Needed for Home Before Pt had increase in pain with Discharge all mobility. He was unable to tolerate rolling. He had increase with raising of head of bed and didn't tolerate it.
--- NOTE | 2017-11-17 14:16 | PC.NURSE ---
Am note Pt with uncontrolled pain most of am, given IVP Dilaudid, effective, although Pt noted to be slightly impulsive/forgetful after administration. BA is active to [facility]. Able to get up to [facility] with 2 PA after IVP and encouragement from staff.
--- NOTE | 2017-11-17 14:44 | CM.DPC ---
DCP SNF Planning Per UR, pt switched to Inpt Status as of today 11/17/17 for ongoing need for IV Dilaudid for pain management. Per STAVE MACHINE TENDER, pt so painful today he could not participate in therapy this morning and needing SNF still. JEYSON Roca faxed pt clinicals for new referral for Medicaid SNF bed to [facility]'s and [facility] does not have a Medicaid bed for the pt and [facility] admissions called and stated they can accept the pt under Medicaid and [facility] for therapies when medically stable. EVAN updated that pt changed to Medicare and they can accept pt under Medicaid or Medicare. EVAN met bedside with pt's son Isak and updated on above information and Isak grateful and states if pt gets his Medicare qualifying stay their preference would be [facility] due to proximity to family and work but if Medicaid then they are agreeable to [facility]. EVAN completed PASRR for SNF. Plan: EVAN to follow closely to determine if pt will have Medicare qualifying stay for SNF vs Medicaid SNF at [facility] or possible other Medicaid SNF in [facility] if he is accepted. If Medicare, family wants [facility]. GEOFF Pardo
--- NOTE | 2017-11-17 15:04 | PT.IPTN ---
Current Diagnoses Morbid (severe) obesity due to excess calories (11/17/17) Non-pressure chronic ulcer of unspecified part of left lower leg with fat layer exposed (11/17/17) Low back pain (11/17/17) Localized edema (11/17/17) Strain of muscle, fascia and tendon of lower back, initial encounter (11/17/17) Physical Therapy Treatment Note M2 PT-IP Current Condition Start: 11/14/17 17:39 Freq: NEEDED Status: Active Protocol: Document 11/14/17 15:35 DLM (Rec: 11/14/17 17:59 DLM [id number]) Physical Therapy Current Condition Current Condition Evaluation Date 11/14/17 Treatment Diagnosis back pain, weakness, impaired gait Onset Date 11/13/17 Precautions Lumbar Precautions Log Roll No Twisting Limit Bending Lifting Restriction of 10 lbs Other Precautions use lumbar precautions to manage his back pain Weight Bearing Status Weight Bearing Status Full Weight Bearing M3 PT-IP Subjective Start: 11/14/17 17:39 Freq: NEEDED Status: Active Protocol: Document 11/17/17 14:53 AMB (Rec: 11/17/17 15:04 AMB [email or web address]) Subjective Physical Therapy Visit Type Type Treatment Note Visit Start Time 14:20 Visit Stop Time 14:50 Total Visit Minutes 30 Number of CELL PREPARER Visits 0 Physical Therapy Visit Comments Patient Comments Pt is willing to get up Therapy Pain Assessment Pain When Pain Assessed During Mobility Pain Present Pain Present Pain Reported Location Lower Back Intensity 8 Scale Used Numeric (1 - 10) Description Sharp Pain Management Techniques Modification of Treatment Timing of Activity with Medications M4 PT-IP Mobility and Gait Start: 11/14/17 17:39 Freq: NEEDED Status: Active Protocol: Document 11/17/17 14:53 AMB (Rec: 11/17/17 15:04 AMB [email or web address]) PT-Bed Mobility Assessment Rolling Type of Rolling Roll to Right Level of Assist Maximal Assistance 1 Person Assistance Supine to Sit Supine to Sit Maximum Assistance 1 Person Assistance Sit to Supine Sit to Supine Maximum Assistance 1 Person Assistance Head of Bed Elevated Bedrails PT-Transfer Assessment Sit to and From Stand Sit to and from Stand Minimal Assistance 1 Person Assistance Equipment Transfer Assistive Device Gait Belt Front Wheeled Walker Transfers Transfer Destination Bed Wheelchair Transfer Technique Stand Step Pivot Transfer Ability Level of Assist Minimal Assistance Gait Assessment Gait Gait Assistance Required: Minimum Assistance Distance (Feet) (feet) 10 Assistive Devices Assistive Device Gait Belt Front Wheeled Walker Gait Deviations General Gait Pattern Wide Based Gait Factors Limiting Gait Function Factors Limiting Gait Function Pain Comments Gait Comments Pt notes 8/10 pain with sitting, standing and walking. Most difficulty with bed mobility, then can walk short distances, but pain limits how long he can tolerate this. M5 PT-IP Objective Assessments Start: 11/14/17 17:39 Freq: NEEDED Status: Active Protocol: Document 11/14/17 15:35 DLM (Rec: 11/14/17 17:59 DLM [id number]) Orientation Orientation/Cognition Level of Alertness Alert Orientation Name Age Birthday Month Date Year Day of Week Place Situation Language Function Ability No Deficits Noted Safety Awareness Understands Safety Issues Memory Description No Deficits Noted Gross Range of Motion Upper Extremity ROM Assessment Within Functional Limits Lower Extremity ROM Assessment Within Functional Limits Impairments limitations due to his size Strength Upper Extremity Strength Assessment Within Functional Limits Lower Extremity Strength Assessment Bilaterally Impaired Comments Strength Comments generalized weakness in LE's, his mass makes positioning for manual muscle testing difficult, edema bilateral distal LE's with a small wound on left carvajal area Coordination Assessment Gross Coordination Gross Coordination WNL Sensation Assessment Sensation Gross Sensation WNL Muscle Tone Muscle Tone WNL Yes M6 PT-IP Treatment Start: 11/14/17 17:39 Freq: NEEDED Status: Active Protocol: Document 11/17/17 11:59 GGD (Rec: 11/17/17 12:05 GGD [email or web address]) Physical Therapy Treatment Exercises Exercises Ankle Pumps Gluteal Sets Quad Sets Heel Slides M7 PT-IP Assessment and Plan Start: 11/14/17 17:39 Freq: NEEDED Status: Active Protocol: Document 11/17/17 14:53 AMB (Rec: 11/17/17 15:04 AMB [email or web address]) PT Summary Assessment and Plan Frequency of Treatment Frequency Of Treatment Twice a Day Treatment Plan Physical Therapy Treatment Plan Bed Mobility Training Transfer Training Gait Training Therapeutic Exercise Balance Retraining Post Op Education Discharge Planning Hot or Cold Pack Neuromuscular Re-ed Coordination Retraining Manual Therapy Other Recommendations and Next Treatment Pt with most difficult with Focus bed mobility sidelying to sit today. Pain continues to limit mobility, and patient would be very unsafe at home alone. Recommendations To Nursing Amount of Assist Needed 2 Person Assist Discharge Recommendations PT Discharge Recommendations SNF Rehab Equipment Needed for Home Before Pt would very much benefit Discharge from SNF rehab. High levels of pain limit function, but he has shown some progress today .
[2017-11-17 15:36] VITALS: BP 105/49; PULSE 68; RESP 20; TEMP 36.7; O2SAT 95
[2017-11-17] MEDS: CARISOPRODOL 350 MG TABLET PO (18:58)
[2017-11-17 20:08] VITALS: BP 120/85; PULSE 90; RESP 20; TEMP 36.6; O2SAT 93
[2017-11-17] MEDS: MORPHINE 2 MG/ML INJ IV (21:40)
--- NOTE | 2017-11-17 21:45 | PC.NURSE ---
Kalyn richey- pt able to help scoot self up in bed with 2PA, inc b/b, changed in bed. C/O back spasms, robaxin not helpful, new oprders for soma 350mg 1 tab PO TID, and morphine 2mg IVP Q-4hr. BLE with compression sleeves on, drsg to left carvajal CDI, BLE edema 4+ pitting, toenails appear fungal. Call light in reach and bed alarm on.
[2017-11-18] VITALS (9 sets, daily range): BP systolic 111–140; BP diastolic 55–69; PULSE 59–71; RESP 16–22; TEMP 35.9–37.3; O2SAT 93–96
[2017-11-18] MEDS: HYDROCODONE/ACET 10/325 TABLET 1 TAB PO ×5 (00:40→17:45)
[2017-11-18] MEDS: PANTOPRAZOLE 40 MG TABLET PO (04:46)
--- NOTE | 2017-11-18 05:39 | PC.NURSE ---
Addendum entered by Taniya Heredia R.N. 11/18/17 06:56: Meds given as requested. Pt slept on and off through the shift. will continue to monitor. Original Note: Assumed care of pt from outgoing shift at 2300 8-7. Pt awake at this time. belongings and call light within reach. uses call light. complained of pain and given med per JUN. Pt two assist. incontinent of bowel, does call and use urinal. unable to hold urinal himself. Pt asked for snack, given and pain med given per JUN. Pt compliant with nursing assessments. Pt complains of pain 08/20- reassessment 07/21. will continue to monitor pt for safety. bed alarm on. side rails upx4 per request and pt safety.
[2017-11-18] MEDS: ESCITALOPRAM 10 MG TABLET 20 MG PO (08:48)
[2017-11-18] MEDS: LISINOPRIL 20 MG TABLET PO (08:49)
[2017-11-18] MEDS: ATENOLOL 25 MG TABLET PO (08:49)
[2017-11-18] MEDS: NYSTATIN POWDER 30 GM 1 APPLIC TOP ×2 (08:50→21:17)
[2017-11-18] MEDS: SODIUM CHLORIDE 0.9% FLUSH 10 ML IV ×3 (08:50→23:54)
[2017-11-18] MEDS: ENOXAPARIN 40 MG/0.4 ML SYRINGE SUBCUT (08:50)
--- NOTE | 2017-11-18 09:15 | PT.IPTN ---
Current Diagnoses Morbid (severe) obesity due to excess calories (11/17/17) Non-pressure chronic ulcer of unspecified part of left lower leg with fat layer exposed (11/17/17) Low back pain (11/17/17) Localized edema (11/17/17) Strain of muscle, fascia and tendon of lower back, initial encounter (11/17/17) Physical Therapy Treatment Note M2 PT-IP Current Condition Start: 11/14/17 17:39 Freq: NEEDED Status: Active Protocol: Document 11/18/17 09:15 AB (Rec: 11/18/17 10:33 AB [email or web address]) Physical Therapy Current Condition Current Condition Evaluation Date 11/14/17 Treatment Diagnosis back pain, weakness, impaired gait Onset Date 11/13/17 Precautions Lumbar Precautions Log Roll No Twisting Limit Bending Lifting Restriction of 10 lbs Other Precautions use lumbar precautions to manage his back pain Weight Bearing Status Weight Bearing Status Full Weight Bearing M3 PT-IP Subjective Start: 11/14/17 17:39 Freq: NEEDED Status: Active Protocol: Document 11/18/17 09:15 AB (Rec: 11/18/17 10:33 AB [email or web address]) Subjective Physical Therapy Visit Type Type Treatment Note Visit Start Time 09:15 Visit Stop Time 09:45 Total Visit Minutes 30 Number of TREE SURGEON Visits 0 Physical Therapy Visit Comments Patient Comments pt agreeable to do therapy Therapy Pain Assessment Pain When Pain Assessed At Rest Pain Present Pain Present Pain Reported Location Lower Back Intensity 6 Scale Used Numeric (1 - 10) Pain Management Techniques Re-positioning Timing of Activity with Medications M4 PT-IP Mobility and Gait Start: 11/14/17 17:39 Freq: NEEDED Status: Active Protocol: Document 11/18/17 09:15 AB (Rec: 11/18/17 10:33 AB [email or web address]) PT-Bed Mobility Assessment Rolling Type of Rolling Log Rolling Level of Assist Maximal Assistance 1 Person Assistance 2 Person Assistance Supine to Sit Supine to Sit Maximum Assistance Total Assistance 2 Person Assistance Bedrails Scooting Scooting to Edge of Bed Maximum Assistance PT-Transfer Assessment Sit to and From Stand Sit to and from Stand Moderate Assistance 1 Person Assistance Use of Upper Extremities Equipment Transfer Assistive Device Gait Belt Front Wheeled Walker Orthotic/Prosthetic Devices or Brace: No Transfers Transfer Destination Wheelchair Transfer Technique pt ambulated to the w/c ~ 3 ft using FWW Transfer Ability Level of Assist Contact Guard Assistance Minimal Assistance Gait Assessment Gait Gait Assistance Required: Contact Guard Assist Minimum Assistance Distance (Feet) (feet) 3 Able to Maintain Weight Bearing Status Yes During Gait Assistive Devices Assistive Device Gait Belt Front Wheeled Walker Orthotic/Prosthetic Devices or Brace: No Gait Deviations General Gait Pattern Decreased Stride Length Decreased Feet Clearance Factors Limiting Gait Function Factors Limiting Gait Function Decreased Activity Tolerance Decreased Strength Limited Range of Motion Pain Poor Balance Poor Safety Awareness M5 PT-IP Objective Assessments Start: 11/14/17 17:39 Freq: NEEDED Status: Active Protocol: Document 11/14/17 15:35 DLM (Rec: 11/14/17 17:59 DLM [id number]) Orientation Orientation/Cognition Level of Alertness Alert Orientation Name Age Birthday Month Date Year Day of Week Place Situation Language Function Ability No Deficits Noted Safety Awareness Understands Safety Issues Memory Description No Deficits Noted Gross Range of Motion Upper Extremity ROM Assessment Within Functional Limits Lower Extremity ROM Assessment Within Functional Limits Impairments limitations due to his size Strength Upper Extremity Strength Assessment Within Functional Limits Lower Extremity Strength Assessment Bilaterally Impaired Comments Strength Comments generalized weakness in LE's, his mass makes positioning for manual muscle testing difficult, edema bilateral distal LE's with a small wound on left carvajal area Coordination Assessment Gross Coordination Gross Coordination WNL Sensation Assessment Sensation Gross Sensation WNL Muscle Tone Muscle Tone WNL Yes M6 PT-IP Treatment Start: 11/14/17 17:39 Freq: NEEDED Status: Active Protocol: Document 11/18/17 09:15 AB (Rec: 11/18/17 10:33 AB [email or web address]) Physical Therapy Treatment Education Education Provided Precautions Safety M7 PT-IP Assessment and Plan Start: 11/14/17 17:39 Freq: NEEDED Status: Active Protocol: Document 11/18/17 09:15 AB (Rec: 11/18/17 10:33 AB [email or web address]) PT Summary Assessment and Plan Potential Rehabilitation Potential Fair Summary Impairments Pain ROM Strength Balance Bed Mobility Transfers Gait Activity Tolerance Progress Towards Goals Slow Progress due to Pain Assessment Summary pt requiring 2 person assist for bed mobility and one person assist with transfers using FWW. pt has decrease activity tolerance and c/o back pain affecting mobility and independence. pt lives alone and at this time requires assist with all tasks . pt will require SNF rehab to improve function. Goals Bed Mobility Goal Minimal Assistance Transfer Goal Contact Guard Assistance Front Wheeled Walker Gait Goal Contact Guard Assistance Front Wheel Walker Gait Distance 50 feet Other Goals up and down 3 steps with rail and cane and min assist Days to Meet Goals 4 Frequency of Treatment Frequency Of Treatment Once a Day Treatment Plan Physical Therapy Treatment Plan Bed Mobility Training Transfer Training Gait Training Therapeutic Exercise Balance Retraining Post Op Education Discharge Planning Hot or Cold Pack Neuromuscular Re-ed Coordination Retraining Manual Therapy Recommendations To Nursing Amount of Assist Needed 2 Person Assist Discharge Recommendations PT Discharge Recommendations SNF Rehab
[2017-11-18] MEDS: CARISOPRODOL 350 MG TABLET PO (10:03)
--- NOTE | 2017-11-18 12:30 | OT.IP.TRT ---
Current Diagnoses Morbid (severe) obesity due to excess calories (11/17/17) Low back pain (11/17/17) Localized edema (11/17/17) Strain of muscle, fascia and tendon of lower back, initial encounter (11/17/17) Occupational Therapy Treatment Note M2 OT-IP Current Condition Start: 11/14/17 17:35 Freq: Status: Active Protocol: Document 11/14/17 14:45 CCC (Rec: 11/14/17 18:00 [facility] [email or web address]) Occupational Therapy Current Condition Current Condition Evaluation Date 11/14/17 Treatment Diagnosis Back pain,weakness. Diagnosis Onset Date 11/13/17 Weight Bearing Status Weight Bearing Status Weight Bear as Tolerated M3 OT- IP Subjective and Pain Start: 11/14/17 17:35 Freq: Status: Active Protocol: Document 11/18/17 12:29 CCC (Rec: 11/18/17 12:29 [facility] [email or web address]) OT- Subjective Occupational Therapy Visit Type Type Patient Refusal Notes Pt states in too much pain at this time 10/20, nursing aware and thererfore does not want to do Ot therapy at this time.
--- NOTE | 2017-11-18 16:15 | PM.PN.1 ---
Subjective Date Patient Seen: 11/18/17 Interval history: Still with significant back pain. He does not feel like soma or robaxin are helping. He gets the lortab every four hours. Exam Vital Signs (past 8 hours): - 11/18/17 09:04 11/18/17 12:00 11/18/17 16:01 Temperature 96.7 F L 98.8 F Pulse Rate 70 59 L Respiratory Rate 16 20 Blood Pressure 135/69 H 123/61 H Pulse Oximetry 93 93 93 Oxygen Delivery Method Room Air Oxygen Flow Rate 0 Narrative Exam Narrative: Lungs: Clear to auscultation CV: RRR nl S1S2 Abd: soft/NT Ext: large legs 2+edema Objective Labs Result Diagrams: 11/15/17 05:07 11/15/17 05:07 Assessment & Plan (1) Morbid obesity: Problem details: continue PT/OT Current visit: No Status: None (2) Lower back pain: Problem details: Same meds but Qualifiers: Back pain laterality: bilateral Chronicity: acute Sciatica laterality: Sciatica presence: without sciatica Qualified Code(s): M54.5 - Low back pain Current visit: Yes Status: Acute (3) 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 I'd simply continue the current dressing regimen while he continues to wear this current compression stocking. Current visit: Yes Status: Acute (4) Strain of lumbar region: Problem details: Patient will need continued physical therapy and occupational therapy. Agree with plan for snf stay for rehabilitation Qualifiers: Encounter type: initial encounter Qualified Code(s): S39.012A - Strain of muscle, fascia and tendon of lower back, initial encounter Current visit: No Status: Acute Quality VTE Deep Vein Thrombosis/Pulmonary Embolism Present on Admission: No
--- NOTE | 2017-11-18 16:18 | P.PN_ITS ---
Subjective Date Patient Seen: 11/18/17 Interval history: Still with significant back pain. He does not feel like soma or robaxin are helping. He gets the lortab every four hours. Exam Vital Signs (past 8 hours): - 11/18/17 09:04 11/18/17 12:00 11/18/17 16:01 Temperature 96.7 F L 98.8 F Pulse Rate 70 59 L Respiratory Rate 16 20 Blood Pressure 135/69 H 123/61 H Pulse Oximetry 93 93 93 Oxygen Delivery Method Room Air Oxygen Flow Rate 0 Narrative Exam Narrative: Lungs: Clear to auscultation CV: RRR nl S1S2 Abd: soft/NT Ext: large legs 2+edema Objective Labs Result Diagrams: 11/15/17 05:07 11/15/17 05:07 Assessment & Plan (1) Morbid obesity: Problem details: continue PT/OT Current visit: No Status: None (2) Lower back pain: Problem details: Same meds but Qualifiers: Back pain laterality: bilateral Chronicity: acute Sciatica laterality : Sciatica presence: without sciatica Qualified Code(s): M54.5 - Low back pain Current visit: Yes Status: Acute (3) 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 I'd simply continue the current dressing regimen while he continues to wear this current compression stocking. Current visit: Yes Status: Acute (4) Strain of lumbar region: Problem details: Patient will need continued physical therapy and occupational therapy. Agree with plan for prison stay for rehabilitation Qualifiers: Encounter type: initial encounter Qualified Code(s): S39.012A - Strain of muscle, fascia and tendon of lower back, initial encounter Current visit: No Status: Acute Quality VTE Deep Vein Thrombosis/Pulmonary Embolism Present on Admission: No
[2017-11-18] MEDS: KETOROLAC 30 MG/ML VIAL IV ×2 (17:22→23:54)
[2017-11-18 18:21] LABS: Blood Urea Nitrogen 12 mg/dL (9-20); Calcium 9.1 mg/dL (8.4-10.2); Carbon Dioxide 34 mmol/L (22-32); Chloride 95 mmol/L (98-107); Estimated Glomerular Filt Rate > 60.0 mL/min (>60); Glucose 99 mg/dL (80-110); HEMOLYSIS 46 (0-50); Potassium 4.8 mmol/L (3.4-5.1); Sodium 137 mmol/L (137-145)
[2017-11-18] MEDS: OXYCODONE ER 10 MG TAB PO (21:16)
[2017-11-19] VITALS (8 sets, daily range): BP systolic 128–138; BP diastolic 52–75; PULSE 60–74; RESP 16–24; TEMP 36.4–36.7; O2SAT 94–98
--- NOTE | 2017-11-19 03:20 | PC.NURSE ---
Assumed care of pt from outgoing shift at 2300 8-8. Pt asleep at this time. belongings and call light within reach. uses call light. bed alarm on, side rails upx4 per pt request. will continue to monitor. 2350- Pt awoken for med pass, vitals and assessments. compliant. pain 5/10, and given med per JUN. Pt two assist. does call and use urinal. unable to hold urinal himself. Pt compliant with nursing assessments. will continue to monitor pt for safety. bed alarm on. side rails upx4 per request and pt safety.
[2017-11-19] MEDS: KETOROLAC 30 MG/ML VIAL IV ×3 (06:17→19:09)
[2017-11-19] MEDS: PANTOPRAZOLE 40 MG TABLET PO (06:17)
[2017-11-19] MEDS: SODIUM CHLORIDE 0.9% FLUSH 10 ML IV ×3 (06:19→19:09)
[2017-11-19] MEDS: ESCITALOPRAM 10 MG TABLET 20 MG PO (09:57)
[2017-11-19] MEDS: ENOXAPARIN 40 MG/0.4 ML SYRINGE SUBCUT (09:57)
[2017-11-19] MEDS: ATENOLOL 25 MG TABLET PO (09:57)
[2017-11-19] MEDS: LISINOPRIL 20 MG TABLET PO (09:57)
[2017-11-19] MEDS: NYSTATIN POWDER 30 GM 1 APPLIC TOP ×2 (09:58→20:47)
[2017-11-19] MEDS: OXYCODONE ER 10 MG TAB PO ×2 (09:59→21:03)
--- NOTE | 2017-11-19 10:57 | PT.IPTN ---
Current Diagnoses Morbid (severe) obesity due to excess calories (11/17/17) Non-pressure chronic ulcer of unspecified part of left lower leg with fat layer exposed (11/17/17) Low back pain (11/17/17) Localized edema (11/17/17) Strain of muscle, fascia and tendon of lower back, initial encounter (11/17/17) Physical Therapy Treatment Note M2 PT-IP Current Condition Start: 11/14/17 17:39 Freq: NEEDED Status: Active Protocol: Document 11/18/17 09:15 AB (Rec: 11/18/17 10:33 AB [email or web address]) Physical Therapy Current Condition Current Condition Evaluation Date 11/14/17 Treatment Diagnosis back pain, weakness, impaired gait Onset Date 11/13/17 Precautions Lumbar Precautions Log Roll No Twisting Limit Bending Lifting Restriction of 10 lbs Other Precautions use lumbar precautions to manage his back pain Weight Bearing Status Weight Bearing Status Full Weight Bearing M3 PT-IP Subjective Start: 11/14/17 17:39 Freq: NEEDED Status: Active Protocol: Document 11/19/17 10:44 AB (Rec: 11/19/17 10:57 AB [id number]) Subjective Physical Therapy Visit Type Type Treatment Note Visit Start Time 10:08 Visit Stop Time 10:24 Total Visit Minutes 16 Number of CANDY COOKER HELPER Visits 0 Physical Therapy Visit Comments Patient Comments pt agreeable to do therapy Therapy Pain Assessment Pain When Pain Assessed At Rest Pain Present Pain Present Pain Reported Location Lower Back Intensity 4 Scale Used Numeric (1 - 10) M4 PT-IP Mobility and Gait Start: 11/14/17 17:39 Freq: NEEDED Status: Active Protocol: Document 11/19/17 10:44 AB (Rec: 11/19/17 10:57 AB [id number]) PT-Bed Mobility Assessment Rolling Type of Rolling Log Rolling Level of Assist Maximal Assistance 2 Person Assistance Supine to Sit Supine to Sit Maximum Assistance Total Assistance 2 Person Assistance Bedrails PT-Transfer Assessment Sit to and From Stand Sit to and from Stand Minimal Assistance Equipment Transfer Assistive Device Gait Belt Front Wheeled Walker Orthotic/Prosthetic Devices or Brace: No Transfers Transfer Destination Wheelchair Transfer Technique pt ambulated to the w/c using FWW Gait Assessment Gait Gait Assistance Required: Contact Guard Assist Minimum Assistance Distance (Feet) (feet) 20 Able to Maintain Weight Bearing Status Yes During Gait Assistive Devices Assistive Device Gait Belt Front Wheeled Walker Orthotic/Prosthetic Devices or Brace: No Gait Deviations General Gait Pattern Antalgic Decreased Stride Length Decreased Feet Clearance Factors Limiting Gait Function Factors Limiting Gait Function Decreased Activity Tolerance Decreased Strength Limited Range of Motion Pain Poor Balance Comments Gait Comments pt has (+) LOB x 2 during ambulation requiring min A for recovery and safety M5 PT-IP Objective Assessments Start: 11/14/17 17:39 Freq: NEEDED Status: Active Protocol: Document 11/14/17 15:35 DLM (Rec: 11/14/17 17:59 DLM [id number]) Orientation Orientation/Cognition Level of Alertness Alert Orientation Name Age Birthday Month Date Year Day of Week Place Situation Language Function Ability No Deficits Noted Safety Awareness Understands Safety Issues Memory Description No Deficits Noted Gross Range of Motion Upper Extremity ROM Assessment Within Functional Limits Lower Extremity ROM Assessment Within Functional Limits Impairments limitations due to his size Strength Upper Extremity Strength Assessment Within Functional Limits Lower Extremity Strength Assessment Bilaterally Impaired Comments Strength Comments generalized weakness in LE's, his mass makes positioning for manual muscle testing difficult, edema bilateral distal LE's with a small wound on left carvajal area Coordination Assessment Gross Coordination Gross Coordination WNL Sensation Assessment Sensation Gross Sensation WNL Muscle Tone Muscle Tone WNL Yes M6 PT-IP Treatment Start: 11/14/17 17:39 Freq: NEEDED Status: Active Protocol: Document 11/18/17 09:15 AB (Rec: 11/18/17 10:33 AB [email or web address]) Physical Therapy Treatment Education Education Provided Precautions Safety M7 PT-IP Assessment and Plan Start: 11/14/17 17:39 Freq: NEEDED Status: Active Protocol: Document 11/19/17 10:44 AB (Rec: 11/19/17 10:57 AB [id number]) PT Summary Assessment and Plan Potential Rehabilitation Potential Fair Summary Impairments Pain ROM Strength Balance Cognition Bed Mobility Transfers Gait Activity Tolerance Progress Towards Goals Slow Progress due to Pain Slow Progress due to Medical Issues Slow Progress due to Activity Tolerance Assessment Summary pt is progressing slowly but continues to require 2 person assist with bed mobility and has decrease activity tolerance. pt will benefit from SNF rehab to improve strength and ambulation. Goals Bed Mobility Goal Minimal Assistance Transfer Goal Contact Guard Assistance Front Wheeled Walker Gait Goal Contact Guard Assistance Front Wheel Walker Gait Distance 50 feet Other Goals up and down 3 steps with rail and cane and min assist Days to Meet Goals 4 Frequency of Treatment Frequency Of Treatment Once a Day Treatment Plan Physical Therapy Treatment Plan Bed Mobility Training Transfer Training Gait Training Therapeutic Exercise Balance Retraining Post Op Education Discharge Planning Hot or Cold Pack Neuromuscular Re-ed Coordination Retraining Manual Therapy Recommendations To Nursing Amount of Assist Needed 2 Person Assist Discharge Recommendations PT Discharge Recommendations SNF Rehab
--- NOTE | 2017-11-19 11:50 | OT.IP.TRT ---
Current Diagnoses Morbid (severe) obesity due to excess calories (11/17/17) Non-pressure chronic ulcer of unspecified part of left lower leg with fat layer exposed (11/17/17) Low back pain (11/17/17) Localized edema (11/17/17) Strain of muscle, fascia and tendon of lower back, initial encounter (11/17/17) Occupational Therapy Treatment Note M2 OT-IP Current Condition Start: 11/14/17 17:35 Freq: Status: Active Protocol: Document 11/14/17 14:45 [facility] (Rec: 11/14/17 18:00 [facility] [id number]) Occupational Therapy Current Condition Current Condition Evaluation Date 11/14/17 Treatment Diagnosis Back pain,weakness. Diagnosis Onset Date 11/13/17 Weight Bearing Status Weight Bearing Status Weight Bear as Tolerated M3 OT- IP Subjective and Pain Start: 11/14/17 17:35 Freq: Status: Active Protocol: Document 11/19/17 12:58 PJM (Rec: 11/19/17 13:23 PJM [id number]) OT- Subjective Occupational Therapy Visit Type Type Treatment Note Visit Start Time 11:30 Visit Stop Time 11:50 Total Visit Minutes 20 Occupational Therapy Visit Comments Patient Comments Pt requesting to go back to bed due to back pain; c/o fatigue after previous P.T. tx . OT Pain Assessment Pain When Pain Assessed After Treatment Pain Present Pain Present Pain Reported Location Lower Back Intensity 6 Scale Used Numeric (1 - 10) Description Aching M4 OT- IP ADL's Start: 11/14/17 17:35 Freq: Status: Active Protocol: Document 11/19/17 12:58 PJM (Rec: 11/19/17 13:23 PJM [id number]) OT ADL-Dressing General Eval Lower Body Dressing Ability Moderate Assistance Assistive Devices Dressing Assistive Devices Reproduction Machine Loader Sock Aid Comments OT Dressing Comments Pt attempted to remove B socks with parking cashier then requested to stop session due to increased back pain. Pt reports he has parking cashier, but sock aid is broken. Provided new sock aid at pt request. Pt reports bench worker helps him with stockinette on legs. He wears pullover robe and slippers at home. OT ADL-Bathing Comments OT Bathing Comments Pt declines shower today due to fatigue and back pain. M M7 OT- IP Mobility and Balance Start: 11/14/17 17:35 Freq: Status: Active Protocol: Document 11/19/17 12:58 PJM (Rec: 11/19/17 13:23 PJM [id number]) OT- Bed Mobility Assessment Sit to Supine Sit to Supine Assist Moderate Assistance 2 Person Assistance Scooting Scooting Up and Down in Bed Moderate Assistance 2 Person Assistance OT-Transfer Assessment Sit to and From Stand Sit to and from Stand Minimal Assistance Transfers Transfer Ability Minimal Assistance Technique Transfer Destination Bed Transfer Technique Stand Step Pivot Devices Transfer Assistive Devices Gait Belt Front Wheeled Walker OT- Balance Assessment Sitting Balance and Reactions Static Sitting Balance Ability Good Standing Balance and Reactions Static Standing Balance Ability Fair Dynamic Standing Balance Ability Fair M9 OT- IP Assessment and Plan Start: 11/14/17 17:35 Freq: Status: Active Protocol: Document 11/19/17 12:58 PJM (Rec: 11/19/17 13:23 PJM [id number]) OT Summary Assessment and Plan Summary OT Impairments Pain Strength Balance Dressing Toileting Bathing Toilet Transfers Shower Transfers Progress Towards Goals Slow Progress due to Pain Slow Progress due to Activity Tolerance Assessment Summary Pt seen for ADL training session, but participation limited by low back pain and pt needing to get back to bed. Good effort and participation with transfer and bed mobility , but pt unable to get legs onto bed requiring assist of 2 (one for each leg). Good effort with scooting in bed using over head trapeze and pushing with B legs. Will try to see pt in early AM tomorrow for shower. Pt not safe to return home alone. Recommend SNF at d/c for further subacute rehab. Goals Grooming Goal Independent Dressing Goal Standby Assistance Toileting Goal Moderate Assistance Bathing Goal Moderate Assistance Toilet Transfer Goal Standby Assistance Shower Transfer Goal Contact Guard Assistance Patient/Caregiver Education Goal Caregiver Independent Assisting Patient Days to Meet Goals 5 Frequency of Treatment Frequency Of Treatment Once a Day Treatment Plan OT Treatment Plan ADL Training Other Treatment Recommendations and Next See araly AM for shower Treatment Focus Discharge Recommendations OT Discharge Recommendations SNF Rehab Home Equipment Needs Urinal, BSC
--- NOTE | 2017-11-19 16:58 | PM.PN.1 ---
Subjective Date Patient Seen: 11/19/17 Interval history: Pain control finally improved today. He was able to get up for the first time. No shortness of breath, +BM, no other complaints Exam Vital Signs (past 8 hours): - 11/19/17 12:45 11/19/17 15:53 Temperature 97.8 F 97.5 F L Pulse Rate 68 67 Respiratory Rate 18 20 Blood Pressure 129/52 H 128/65 H Pulse Oximetry 95 94 Oxygen Delivery Method Room Air Oxygen Flow Rate 0 Narrative Exam Narrative: Lungs: Clear to auscultation CV: RRR nl Sl S2 Abd: obese/ soft/non tender/ non distended EXT 3+ edema Objective Labs Result Diagrams: 11/15/17 05:07 11/18/17 17:20 Labs: Laboratory Results - last 24 hr 11/18/17 17:20 Sodium 137 Potassium 4.8 D Chloride 95 L Carbon Dioxide 34 H BUN 12 Creatinine 0.60 L Estimated GFR > 60.0 BUN/Creatinine Ratio 20.0 Glucose 99 Calcium 9.1 Assessment & Plan (1) 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 I'd simply continue the current dressing regimen while he continues to wear this current compression stocking. Current visit: Yes Status: Acute (2) Strain of lumbar region: Problem details: Patient will need continued physical therapy and occupational therapy. Agree with plan for senior living stay for rehabilitation Back pain improved with low dose oxycontin Qualifiers: Encounter type: initial encounter Qualified Code(s): S39.012A - Strain of muscle, fascia and tendon of lower back, initial encounter Current visit: No Status: Acute (3) Morbid obesity: Problem details: continue PT/OT Current visit: No Status: None (4) Edema of lower extremity: Problem details: Wound care consult with Dr. interiano for further recommendation Current visit: No Status: None Quality VTE Deep Vein Thrombosis/Pulmonary Embolism Present on Admission: No
[2017-11-20] MEDS: KETOROLAC 30 MG/ML VIAL IV ×2 (00:04→05:58)
[2017-11-20 00:08] VITALS: BP 145/75; PULSE 70; RESP 20; TEMP 36.6; O2SAT 94
--- NOTE | 2017-11-20 00:28 | PC.NURSE ---
Addendum entered by Ann Ordoñez R.N. 11/20/17 06:29: pt is heavily incontinent of urine. Foul odor coming from perineal area/abdominal pannus area, nystatin applied and some baby powder. Pt refuses to elevate his legs. Original Note: Pt is AxOx3, on CPAP now for bedtime, saturating well, vitals stable. Patients pain is 4/10, given scheduled Toradol. Pts b/l legs and feet have +3 non-pitting edema, has his own b/l compression stockings on, with a dressing to LLE. RLE hyperpigmented. Turned and positioned q2h. Incontinent at times/uses urinal. Pt's IV is ; i spoke to patient about receiving a new IV and he refuses at this time since he should be going to a SNF in the morning. I informed patient that if he does not wind up being discharged tomorrow that he definitely needs a new IV. Pt agrees with this plan. IV is patent, looks clean, dry, and intact.
[2017-11-20] MEDS: PANTOPRAZOLE 40 MG TABLET PO (05:59)
[2017-11-20 08:10] VITALS: BP 134/68; PULSE 74; RESP 20; TEMP 36.9; O2SAT 94
[2017-11-20] MEDS: OXYCODONE ER 10 MG TAB PO (08:56)
[2017-11-20] MEDS: HYDROCODONE/ACET 10/325 TABLET 1 TAB PO (08:57)
[2017-11-20] MEDS: ENOXAPARIN 40 MG/0.4 ML SYRINGE SUBCUT (08:58)
[2017-11-20] MEDS: NYSTATIN POWDER 30 GM 1 APPLIC TOP (08:58)
[2017-11-20] MEDS: SODIUM CHLORIDE 0.9% FLUSH 10 ML IV (08:59)
[2017-11-20] MEDS: ESCITALOPRAM 10 MG TABLET 20 MG PO (08:59)
[2017-11-20] MEDS: ATENOLOL 25 MG TABLET PO (08:59)
[2017-11-20] MEDS: LISINOPRIL 20 MG TABLET PO (08:59)
--- NOTE | 2017-11-20 11:17 | PT.IPTN ---
Current Diagnoses Morbid (severe) obesity due to excess calories (11/17/17) Non-pressure chronic ulcer of unspecified part of left lower leg with fat layer exposed (11/17/17) Low back pain (11/17/17) Localized edema (11/17/17) Strain of muscle, fascia and tendon of lower back, initial encounter (11/17/17) Physical Therapy Treatment Note M2 PT-IP Current Condition Start: 11/14/17 17:39 Freq: NEEDED Status: Active Protocol: Document 11/18/17 09:15 AB (Rec: 11/18/17 10:33 AB [email or web address]) Physical Therapy Current Condition Current Condition Evaluation Date 11/14/17 Treatment Diagnosis back pain, weakness, impaired gait Onset Date 11/13/17 Precautions Lumbar Precautions Log Roll No Twisting Limit Bending Lifting Restriction of 10 lbs Other Precautions use lumbar precautions to manage his back pain Weight Bearing Status Weight Bearing Status Full Weight Bearing M3 PT-IP Subjective Start: 11/14/17 17:39 Freq: NEEDED Status: Active Protocol: Document 11/20/17 10:45 GGD (Rec: 11/20/17 11:16 GGD [id number]) Subjective Physical Therapy Visit Type Type Treatment Note Visit Start Time 10:10 Visit Stop Time 10:20 Total Visit Minutes 25 Notes 10:35 to 10:55 Number of PRINCIPAL PROCESS ENGINEER Visits 1 Physical Therapy Visit Comments Patient Comments Pt wants to shower with OT. M4 PT-IP Mobility and Gait Start: 11/14/17 17:39 Freq: NEEDED Status: Active Protocol: Document 11/20/17 10:45 GGD (Rec: 11/20/17 11:16 GGD [id number]) PT-Bed Mobility Assessment Supine to Sit Supine to Sit Moderate Assistance 1 Person Assistance Head of Bed Elevated Bedrails Sit to Supine Sit to Supine Maximum Assistance 2 Person Assistance Bedrails Scooting Scooting to Edge of Bed Moderate Assistance PT-Transfer Assessment Sit to and From Stand Sit to and from Stand Contact Guard Assistance Equipment Transfer Assistive Device Gait Belt Front Wheeled Walker Transfers Transfer Destination Bedside Commode Gait Assessment Gait Gait Assistance Required: Contact Guard Assist Minimum Assistance Distance (Feet) (feet) 20 Assistive Devices Assistive Device Gait Belt Front Wheeled Walker Factors Limiting Gait Function Factors Limiting Gait Function Decreased Activity Tolerance Decreased Strength Limited Range of Motion Pain Poor Balance Comments Gait Comments Pt ambulated to the bathroom to shower with Ot and then abmulated back to bed. M5 PT-IP Objective Assessments Start: 11/14/17 17:39 Freq: NEEDED Status: Active Protocol: Document 11/14/17 15:35 DLM (Rec: 11/14/17 17:59 DLM [id number]) Orientation Orientation/Cognition Level of Alertness Alert Orientation Name Age Birthday Month Date Year Day of Week Place Situation Language Function Ability No Deficits Noted Safety Awareness Understands Safety Issues Memory Description No Deficits Noted Gross Range of Motion Upper Extremity ROM Assessment Within Functional Limits Lower Extremity ROM Assessment Within Functional Limits Impairments limitations due to his size Strength Upper Extremity Strength Assessment Within Functional Limits Lower Extremity Strength Assessment Bilaterally Impaired Comments Strength Comments generalized weakness in LE's, his mass makes positioning for manual muscle testing difficult, edema bilateral distal LE's with a small wound on left carvajal area Coordination Assessment Gross Coordination Gross Coordination WNL Sensation Assessment Sensation Gross Sensation WNL Muscle Tone Muscle Tone WNL Yes M6 PT-IP Treatment Start: 11/14/17 17:39 Freq: NEEDED Status: Active Protocol: Document 11/18/17 09:15 AB (Rec: 11/18/17 10:33 AB [email or web address]) Physical Therapy Treatment Education Education Provided Precautions Safety M7 PT-IP Assessment and Plan Start: 11/14/17 17:39 Freq: NEEDED Status: Active Protocol: Document 11/20/17 10:45 GGD (Rec: 11/20/17 11:16 GGD [id number]) PT Summary Assessment and Plan Summary Assessment Summary Pt slowly improving with bed mobility. He was able to progress with sit to stand. He did fatigued after shower and need increase in assistance with bed mobility. Frequency of Treatment Frequency Of Treatment Once a Day Treatment Plan Physical Therapy Treatment Plan Bed Mobility Training Transfer Training Gait Training Therapeutic Exercise Balance Retraining Post Op Education Discharge Planning Hot or Cold Pack Neuromuscular Re-ed Coordination Retraining Manual Therapy Recommendations To Nursing Amount of Assist Needed 2 Person Assist Discharge Recommendations PT Discharge Recommendations SNF Rehab
--- NOTE | 2017-11-20 11:23 | PC.NURSE ---
Pt showered and is resting comfortably. [facility] Lower legs with 3-4+ lymph edema. Pt has a soar to the l.carvajal with allevyn in place. His tube instructional support specialist stockings will also be changed. Given 10mg of [place] and helpful for back pain, he also takes oxycontin 10mg routinely. Nystatin applied under folds and in groin area as pt has some redness. He voices no complaints at this time.
--- NOTE | 2017-11-20 11:47 | OT.IP.TRT ---
Current Diagnoses Morbid (severe) obesity due to excess calories (11/17/17) Non-pressure chronic ulcer of unspecified part of left lower leg with fat layer exposed (11/17/17) Low back pain (11/17/17) Localized edema (11/17/17) Strain of muscle, fascia and tendon of lower back, initial encounter (11/17/17) Occupational Therapy Treatment Note M2 OT-IP Current Condition Start: 11/14/17 17:35 Freq: Status: Active Protocol: Document 11/14/17 14:45 [facility] (Rec: 11/14/17 18:00 [facility] [email or web address]) Occupational Therapy Current Condition Current Condition Evaluation Date 11/14/17 Treatment Diagnosis Back pain,weakness. Diagnosis Onset Date 11/13/17 Weight Bearing Status Weight Bearing Status Weight Bear as Tolerated M3 OT- IP Subjective and Pain Start: 11/14/17 17:35 Freq: Status: Active Protocol: Document 11/20/17 11:43 [facility] (Rec: 11/20/17 11:47 [facility] [email or web address]) OT- Subjective Occupational Therapy Visit Type Type Treatment Note Visit Start Time 10:10 Visit Stop Time 10:45 Total Visit Minutes 35 Occupational Therapy Visit Comments Patient Comments Pt agreeable to take a shower. OT Pain Assessment Pain When Pain Assessed During Mobility Pain Present Pain Present Pain Reported M4 OT- IP ADL's Start: 11/14/17 17:35 Freq: Status: Active Protocol: Document 11/20/17 11:43 [facility] (Rec: 11/20/17 11:47 [facility] [email or web address]) OT ADL-Toileting General Evaluation Toileting Ability Total Assistance Areas Needing Assistance Perform Perineal Hygiene OT ADL-Bathing Bathing Type Bathing Type Shower General Evaluation Bathing Ability Maximal Assistance Areas Needing Assistance Retrieving/Setting Up Items Wash/Dry Upper Body Wash/Dry Back Wash/Dry Perineal Area Wash/Dry Lower Extremities Devices Bathing Equipment Shower Chair with Arms Grab Bars M6 OT- IP Functional Cognition Start: 11/14/17 17:35 Freq: Status: Active Protocol: Document 11/20/17 11:43 [facility] (Rec: 11/20/17 11:47 [facility] [id number]) Cognitive Factors Limiting Selfcare Function Cognitive Ability Level of Alertness Alert Patient Orientation Name Place Situation Attention Span Ability Capable of Focused Attention Capable of Sustained Attention Ability to Follow Commands Able to Follow One Step Commands Able to Follow Multi-Step Commands Memory Description No Deficits Noted Safety Awareness No Deficits Noted M7 OT- IP Mobility and Balance Start: 11/14/17 17:35 Freq: Status: Active Protocol: Document 11/20/17 11:43 [facility] (Rec: 11/20/17 11:47 [facility] [email or web address]) OT- Bed Mobility Assessment Rolling Type of Rolling Roll to Right Level of Assistance Moderate Assistance 1 Person Assistance Supine to Sit Supine to Sit Assist Maximum Assistance 2 Person Assistance OT-Transfer Assessment Sit to and From Stand Sit to and from Stand Contact Guard Assistance Transfers Transfer Ability Contact Guard Assistance Technique Transfer Destination Shower Stall Toilet Transfer Technique Stand Step Pivot Devices Transfer Assistive Devices Gait Belt Front Wheeled Walker M8 OT- IP Objective Assessments Start: 11/14/17 17:35 Freq: Status: Active Protocol: Document 11/14/17 14:45 [facility] (Rec: 11/14/17 18:00 [facility] [email or web address]) OT Gross Range of Motion Upper Extremity Range of Motion Assessment Within Functional Limits OT Strength Upper Extremity Strength Assessment Within Functional Limits OT-Muscle Tone Assessment Muscle Tone WNL Yes M9 OT- IP Assessment and Plan Start: 11/14/17 17:35 Freq: Status: Active Protocol: Document 11/20/17 11:43 [facility] (Rec: 11/20/17 11:47 [facility] [email or web address]) OT Summary Assessment and Plan Summary OT Impairments Pain Strength Balance Dressing Toileting Bathing Toilet Transfers Shower Transfers Progress Towards Goals Slow Progress due to Pain Slow Progress due to Activity Tolerance Goals Days to Meet Goals 4 Frequency of Treatment Frequency Of Treatment Once a Day Discharge Recommendations OT Discharge Recommendations SNF Rehab Home Equipment Needs Urinal, BSC
--- NOTE | 2017-11-20 12:31 | P.DS_ITS ---
History of Present Illness Chief complaint: back pain Narrative: Patient is a 77 years of age male who is morbidly obese who is had back pain for the last several weeks. He took a fall earlier today and has increased discomfort to his lower back. He lives alone locally. His son is nearby providing support. Patient was brought to the hospital because he can't care for himself. No recent fevers and chills no nausea vomiting no headache no head trauma no chest pain Discharge Providers Date of admission: 11/17/17 12:37 Consults: 11/14/17 09:50 Consult to Occupational Therapy Evaluate & Treat Comment: Physician Instructions: Evaluate and treat Consult to Physical Therapy Evaluate & Treat Comment: Physician Instructions: Evaluate and Treat 11/15/17 14:45 Consult to Wound Care Routine Comment: non-healing ulcer LLE. Consulting Provider: [facility] Discharge provider: Augie Elkins MD Summary Discharge Diagnosis: (1) Non-pressure ulcer of left lower extremity (2) Strain of lumbar region: (3) Morbid obesity: (4) Stasis Dermatitis of lower extremity bilateral Current visit: No Status: None (4) Edema of lower extremity: Hospital Course: Patient with continuing decline in ability for self care in recent weeks. Patient sustained injury to his lower back consequent to a fall earlier on day of admission. During hosoptial course patient received IV narcotic therapy. Patient was seen by OT and PT and recommended for SNF placement upon discharge. Patient was accepted by nursing facility and will be discharged on Nov 20. Patient continued on analgesic therapy with oxycodone or hydrocodone orally prn. Naproxen included as anti-inflammatory medication and omerpazole will provide GI protective role. Status at Discharge Cognitive/behavioral status at discharge: well oriented and cooperative. ... cognition is at baseline. Affect is normal. Mood is pleasant. Overall status at discharge: patient is progressing back to baseline Time Spent with Patient Greater than 30 minutes Exam Vital Signs (past 8 hours): - 11/20/17 08:10 Temperature 98.5 F Pulse Rate 74 Respiratory Rate 20 Blood Pressure 134/68 H Pulse Oximetry 94 Oxygen Delivery Method Room Air Oxygen Flow Rate 0 Narrative Exam Narrative: PATIENT NOTED AWAKE AND ALERT, IN NO APPARENT DISTRESS. WELL ORIENTED. RESP CLEAR TO AUSCULTATION. NO WHEEZNING NOR CRACKLES CARDIO REGULAR IN RATE AND RHYTHM GI IS MORBIDLY OBESE AND NON TENDER NEURO NO FOCAL NEUROLOGIC CHANGES NOTED. Objective Labs Result Diagrams: 11/15/17 05:07 11/18/17 17:20 Discharge Plan Discharge Plan Patient Disposition: SNF Transfer to: [facility] Transportation: Cabulance Discharge comment: patient unable to I certify the postop hospital [facility]itent[facility] care is medically necessary on a continuing basis for any conditions for which he/ she received care during this hospitalization.: Yes The receiving facility has agreed to accept transfer and provide medical treatment.: Yes Provider Discharge Instructions Diet: Diet as Tolerated and Regular Liquid consistency: Normal/Thin Food texture: Regular Activity: as tolerated. Skin/Wound/Dressing Care Other wound treatment: wound care as recommended by Dr Marks, Wound Kennel Worker. Special Rehabilitation Services Rehab type: Physical therapy and Occupational therapy Restrictions to mobility: none Discharge Data Attending Provider: Augie Elkins Admit Date/Time: 11/17/17 12:37 Quality VTE Deep Vein Thrombosis/Pulmonary Embolism Present on Admission: No
--- NOTE | 2017-11-20 15:45 | CM.DPC ---
DCP Cont: Spoke w/son Isak yesterday and today (per pt's request). Reviewed all steps taken re: pt's DCP. Updated that [facility] was contacted, since pt had 3 nights as an inpatient here and could use his Medicare benefit, [facility] was unable to accommodate pt's needs at this time. Isak grateful for efforts on his Dad's behalf and explained he was happy w/ [facility] and hoped pt would not be there for a nursing home care arrangement. The goal is to have pt return home when he is strong enough to get up on his own and navigate his home independently, with assist from his STEPHAN cgs. This DOG FOOD DOUGH MIXER explained to Isak that it would be a good time to contact pt's [employer]PH[employer] CM and request an assessment (once pt returns home) of pt's current functional limits and care needs. Hopefully pt will qualify for additional STEPHAN cg hours. This DOG FOOD DOUGH MIXER unable to contact STEPHAN CM or fax DC summary d/t caseload demands. Isak very appreciative for the DC planning team and happy that pt has a safe DCP in place. DC to [facility] via cabulance, likely Medicare and Medicaid coverage will be needed. JULISSA Gamez and CM Dept In Flight Crew Member Pricila Elmore assisted in coordinating the details of this DCP today d/t high caseload demands for this DOG FOOD D[employer] MIXER. GEOFF Lerner
--- NOTE | 2017-12-30 10:49 | P.PN_ITS ---
Subjective Date Patient Seen: 11/17/17 Interval history: Back pain improved Exam Vital Signs (past 8 hours): Oxygen Delivery Method Room Air Oxygen Flow Rate 0 Narrative Exam Narrative: Lungs: clear to auscultation CV: RRR nl Sl S2 Abd: Soft/ non tender/ Ext: no edema Objective Labs Result Diagrams: 11/15/17 05:07 11/18/17 17:20 Assessment & Plan (1) 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 I'd simply continue the current dressing regimen while he continues to wear this current compression stocking. Current visit: No Status: Acute (2) Lower back pain: Problem details: Same meds but Qualifiers: Back pain laterality: bilateral Chronicity: acute Sciatica laterality : Sciatica presence: without sciatica Qualified Code(s): M54.5 - Low back pain Current visit: No Status: Acute (3) Morbid obesity: Problem details: continue PT/OT Current visit: No Status: None Quality VTE Deep Vein Thrombosis/Pulmonary Embolism Present on Admission: No
== END 2017-11-20 13:19 | DRG 552 ==
LOC: ED 15:52 → AC 16:55
PROVIDERS: Internal Medicine; Admitting Provider Internal Medicine; Emergency Provider Nurse Practitioner Family; Visit Provider Internal Medicine
DX: S33.5XXA Sprain of ligaments of lumbar spine, initial encounter (principal); L97.822 Non-pressure chronic ulcer of other part of left lower leg with fat layer exposed; Z68.43 Body mass index [BMI] 50.0-59.9, adult; S32.019A Unspecified fracture of first lumbar vertebra, initial encounter for closed fracture; M54.5 Low back pain; W19.XXXA Unspecified fall, initial encounter; E66.01 Morbid (severe) obesity due to excess calories; I10 Essential (primary) hypertension; I89.0 Lymphedema, not elsewhere classified; Z87.891 Personal history of nicotine dependence; I87.2 Venous insufficiency (chronic) (peripheral); M48.061 Spinal stenosis, lumbar region without neurogenic claudication; M47.896 Other spondylosis, lumbar region; R32 Unspecified urinary incontinence
CPT/HCPCS: 36415; 72131; 80048; 80053; 85025; 96374; 97162; 97165; 97530; 97535; 99283; 99284; G0378; J1170; J1650; J1885; J2270

== ENCOUNTER → 2018-11-05 08:00 | Outpatient (ROUT) | payer MEDICARE, MEDICAID, SELFPAY ==
[2017-11-13 16:45] VITALS: BMI 57.9
== END ==
PROVIDERS: PCP Family Medicine; Visit Provider Family Medicine
DX: R60.0 Localized edema (principal)
CPT/HCPCS: 80053; 80061; 84443

== ENCOUNTER → 2019-03-08 10:16 | Outpatient (CLI) | payer MEDICARE, MEDICAID, SELFPAY ==
[2017-11-13 16:45] VITALS: BMI 57.9
== END ==
PROVIDERS: PCP Family Medicine; Visit Provider Family Medicine
DX: I89.0 Lymphedema, not elsewhere classified (principal); L97.821 Non-pressure chronic ulcer of other part of left lower leg limited to breakdown of skin; L97.811 Non-pressure chronic ulcer of other part of right lower leg limited to breakdown of skin; E66.01 Morbid (severe) obesity due to excess calories
CPT/HCPCS: 97597; 99214

== ENCOUNTER → 2019-03-15 14:43 | Outpatient (CLI) | payer MEDICARE, MEDICAID, SELFPAY ==
[2017-11-13 16:45] VITALS: BMI 57.9
== END ==
PROVIDERS: PCP Family Medicine; Visit Provider Family Medicine
DX: I89.0 Lymphedema, not elsewhere classified (principal); L97.821 Non-pressure chronic ulcer of other part of left lower leg limited to breakdown of skin; L97.811 Non-pressure chronic ulcer of other part of right lower leg limited to breakdown of skin; E66.01 Morbid (severe) obesity due to excess calories
CPT/HCPCS: 99213; 99214

== ENCOUNTER → 2019-03-22 13:59 | Outpatient (CLI) | payer MEDICARE, MEDICAID, SELFPAY ==
[2017-11-13 16:45] VITALS: BMI 57.9
== END ==
PROVIDERS: PCP Family Medicine; Visit Provider Family Medicine
DX: I89.0 Lymphedema, not elsewhere classified (principal)
CPT/HCPCS: 99212; 99213

== ENCOUNTER 2019-03-22 14:30 | Outpatient (RCR) | payer MEDICARE, MEDICAID, SELFPAY ==
[2017-11-13 16:45] VITALS: BMI 57.9
--- NOTE | 2019-03-01 15:08 | PT.OIE ---
Current Diagnoses Lymphedema, not elsewhere classified (03/01/19) Scar conditions and fibrosis of skin (03/01/19) Weakness (03/01/19) Localized edema (03/01/19) Past Medical History (Last Reviewed 06/25/18 @ 13:23 by Yany Back MD) Hypertension (Chronic) Hypothyroidism (Chronic) Lymphedema (Acute) Morbid obesity (Chronic) Urinary incontinence (Chronic 2013) Visit Care Team Role Provider Type Angella Rondon MD Primary Care Provider Physician Specialty: [facility] Address: [address] [place] [address], [id number] Email: [email or web address] Josafat Kaiser MD Attending Provider Physician Specialty: [facility] Address: [address] [place] [address], [address] Email: Physical Therapy Initial Evaluation PT-OP-A Visit Information Start: 03/01/19 12:57 Freq: Status: Active Protocol: Document 03/01/19 12:58 SAK (Rec: 03/01/19 13:16 SAK [id number]) Out-Patient Physical Therapy Visit Information Visit Information Visit Type Re-Evaluation Visit Start Time 13:00 Visit Stop Time 14:20 Total Visit Minutes 80 Visit Number 1 Evaluation Information Evaluation Date 03/01/19 Precautions Precautions LBP history of falls open wounds right LE, left LE ( see photos in chart) PT-OP-B Current Condition Start: 03/01/19 12:57 Freq: Status: Active Protocol: Document 03/01/19 12:58 SAK (Rec: 03/01/19 13:16 SAK [id number]) Current Condition History of Current Condition Onset Date 6 wks Current Complaints worsening lymphedema History of Current Condition Lymphedema for at least 5 years following cellulitis bilateral LE's left greater than right. Was improving with Home Health PT but was discharged and then had long gap in PT due to scheduling difficulty with outpatient PT. Hasn't been able to have Circ-Aid wraps on for about 1 month due to lost STEPHAN coverage in addition to being discharged from Home Health PT . Patient unable to don Circ Aids, but is able to doff. Unable to use above knee wraps ; states they always just slide down. States he hasn't used a lymphedema pump in the past. Patient reports back fracture 1 year ago L4-5, has used a walker or w/c since, and reports significant decreased in activity level. Further decrease in activity tolerance with recent increase in lymphedema due to weight of legs. Future Testing and Treatments Planned Sees Dr. Rondon tomorrow. Treatment Goals Patient/Caregiver Goals Decrease edema and improve his general strength and activity tolerance. Prior Functional Status Baseline Function- ADL's Modified Independent Baseline Function- Mobility Modified Independent Baseline Function- Gait 200' with use of FWW Current Functional Impairments (Reported) Functional Limitations- ADL's slow, more difficult Functional Limitations- Mobility/Gait Poor tolerance for gait and mobility due to weight of legs as well as LBP Functional Limitations- Work/School unable to work Functional Limitations- Recreation/ no significant Hobbies Personal Factors Other Personal Factors That May Effect patient is obese Therapy/Recovery PT-OP-C Subjective Start: 03/01/19 12:57 Freq: Status: Active Protocol: Document 03/01/19 12:58 [facility] (Rec: 03/01/19 14:58 [facility] [id number]) Patient Questionnaires Lymphedema Life Impact Score Lymphedema Score 50% OP-PT Pain Assessment Pain Assessment Grid Paper Pain Assessment Grid Completed No PT-OP-J Posture/Palpation/Skin Start: 03/01/19 12:57 Freq: Status: Active Protocol: Document 03/01/19 12:58 SAK (Rec: 03/01/19 14:58 [facility] [id number]) Palpation Assessment Location bilateral lower legs and feet Palpation Findings Edema,Soft Tissue Tightness Palpation Details fibrosis in reddened areas of bilateral lower legs ( see photos in chart) Skin Assessment Other Assessments Skin Assessment Comments weaping clear fluid from 2 small open areas right anterior carvajal, 3 small open areas lateral left lower leg. Recommended wound care referral; patient to see PCP tomorrow and will request plus PT to fax. PT-OP-K Range of Motion Start: 03/01/19 12:57 Freq: Status: Active Protocol: Document 03/01/19 12:58 SAK (Rec: 03/01/19 14:58 SAK [id number]) Hip Goniometric Range of Motion Hip ROM Limitations Hip ROM Limitations Muscle Weakness Comments Requires assist with lifting left LE on and off bed due to edema/weight of leg. States he has a pole at home which he uses for getting in and out of bed. Knee Goniometric Range of Motion Knee shalonda Knee ROM WFL Yes Ankle and Foot Goniometric Range of Motion Ankle and Foot shalonda Ankle/Foot ROM WFL No Testing Position Supine Dorsiflexion with Knee Extended 0 Ankle and Foot ROM Limitations ROM Limitations Soft Tissue Tightness,Muscle Weakness,Swelling PT-OP-N Lymphedema Start: 03/01/19 12:57 Freq: Status: Active Protocol: Document 03/01/19 12:58 [facility] (Rec: 03/01/19 14:58 [facility] [id number]) Lymphedema Measurements Lower Extremity Circumference Measurements Right Affected MT Heads 26.7 cm Medial Malleolus 37.1 cm 10 cm From Medial Malleolus 47.8 cm 20 cm From Medial Malleolus 58.4 cm 30 cm From Medial Malleolus 53.9 cm Left Affected MT Heads 26 cm Medial Malleolus 37.6 cm 10 cm From Medial Malleolus 63.2 cm 20 cm From Medial Malleolus 71.3 cm 30 cm From Medial Malleolus 63.6 cm Comments Lymphedema Comments knee: 48.2 cm left, 46.5 right PT-OP-Q Treatments Start: 03/01/19 12:57 Freq: Status: Active Protocol: Document 03/01/19 12:58 [facility] (Rec: 03/01/19 14:58 [facility] [id number]) Lymphedema Treatment Manual Lymphatic Drainage Location right LE foot to knee Duration 10 min Lymphedema Wrapping Body Location bilateral feet and lower legs Materials Circ Aids Compression Garment Assessment Compression Garment Assessment Details difficult to don Circ Aid on left LE due to extent of edema but time constraints didn't allow for wrapping after pneumatic pump today. Patient Education Compression Garments discussed need for longer garments as current garments don't fully cover Sequential Lymphedema Exercises verbal review PT-OP-R Modalities Start: 03/01/19 12:57 Freq: Status: Active Protocol: Document 03/01/19 12:58 SAK (Rec: 03/01/19 14:58 [facility] [id number]) Compression Pump Treatment Treatment Location left LE Pressure Amount (mmHg) (mmHG) 40 Inflation Time (Seconds) 30 Deflation Time (Seconds) 10 Treatment Duration (minutes) 30 Treatment Tolerance Good Treatment Comments Sequential pneumatic pump Decrease in left LE measurements after pump; not fully measured due to patient needing to go to bathroom, no further time available. PT-OP-T Assessment and Plan Start: 03/01/19 12:57 Freq: Status: Active Protocol: Document 03/01/19 12:58 GUERO (Rec: 03/01/19 14:58 [facility] [id number]) Physical Therapy Assessment Rehab Potential Rehabilitation Potential Good Evaluation Complexity Number of Personal Factors/Comorbidities 3 or More Number of Body Systems Impaired 4 or More Clinical Presentation at Evaluation Unstable Impairments Impairments Activity Tolerance,Edema,ROM, Transfers Goals 4 Impairment Patient requires mod assistance with lifting left LE on and off the bed Short Term Goal (STG) Patient able to move left LE on and off the bed with min assist STG Duration 04/05/19 Mcc Goal (LTG) Patient able to lift his left LE in and out of bed without physical assistance LTG Duration 06/01/18 3 Impairment decreased bilateral ankle ROM Short Term Goal (STG) patient to be independent and compliant in HEP to include sequential lymphedema exercises (which include ankle ROM) STG Duration 03/15/19 Housekeeping And Laundry Team Leader Goal (LTG) Patient to demonstrate bilateral ankle ROM WNL for purposes of functional mobility within the home and community LTG Duration 06/01/18 2 Impairment decreased activity tolerance; patient requires rest after amb 50' Short Term Goal (STG) Patient able to ambulate with FWW for 150' before needing a rest STG Duration 04/05/19 Mcc Goal (LTG) Patient able to ambulate at least 300' without excessivre fatigue or need for a rest to help him return to functional community ambulation LTG Duration 06/01/18 1 Impairment bilateral LE lymphedema left greater than right Mcc Goal (LTG) Decrease bilateral LE lymphedema to stable level (no increase or decrease greater than 1 cm over the course of 1 wk) and patient to be fit with proper fitting compression wraps. Consider home lymphedema pump. LTG Duration 06/01/18 Assessment Summary Assessment Patient presents with severe lymphedema bilateral LE's left greater than right with weeping from several small open wounds. Recommend referral to wound care in addition to PT. Due to gap in PT treatment between home health and outpatient therapy as well as patient's reported loss of STEPHAN for assistance in the home he has not worn his Circ Aid wraps on his LE's for 2 weeks which has resulted in an increase in his lymphedema as well as decline in his functional status. Trial of sequential pneumatic pump on left LE resulted in decrease in circumferential measurements today. Feel Adiel will benefit highly from PT for lymphedema management to include manual lymphatic drainage, sequential lymphedema exercises, sequential pneumatic pump, lymphedema wrapping, assistance with obtaining good fitting LE wraps and self- managing at home. Patient reports he is anticipating being able to resume STEPHAN assistance in the home soon which will allow him to wear his wraps more consistently. Depending on progress with PT may need to consider home lymphedema pump. Physical Therapy Plan Frequency and Duration Frequency of Treatment 2-3x/wk Duration of Treatment 12 wks Plan of Care Start Date 03/01/19 Plan of Care End Date 06/01/18 Therapeutic Interventions Therapeutic Interventions Home Exercise Program, Lymphedema Management,Manual Therapy,Patient/Caregiver Education,Self-Care/Home Management,Therapeutic Activities,Therapeutic Exercises Modalities Vasopneumatic Devices Other Referrals/Consults Referrals/Consults Recommended Recommend wound care referral Next Visit Focus/Plan Next Note Type Treatment Note Next Visit Plan Sequential pneumatic pump bilateral LE's, MLD, consider short-stretch bandage application vs Circ-Aids depending on patient status. End session on recumbent elliptical to help facilitate lymphatic flow after wraps applied.
--- NOTE | 2019-03-01 16:45 | PT.OPPOC ---
Current Diagnoses Lymphedema, not elsewhere classified (03/01/19) Scar conditions and fibrosis of skin (03/01/19) Weakness (03/01/19) Localized edema (03/01/19) Visit Care Team Role Provider Type Angella Rondon MD Primary Care Provider Physician Specialty: Family Practice Address: [address] [place] [address], [address] Email: [email or web address] Josafat Kaiser MD Attending Provider Physician Specialty: [facility] Practice Address: [address] [place] [address], [address] Email: Plan Of Care PT-OP-T Assessment and Plan Start: 03/01/19 12:57 Freq: Status: Active Protocol: Document 03/01/19 12:58 SAK (Rec: 03/01/19 14:58 SAK [id number]) Physical Therapy Assessment Rehab Potential Rehabilitation Potential Good Evaluation Complexity Number of Personal Factors/Comorbidities 3 or More Number of Body Systems Impaired 4 or More Clinical Presentation at Evaluation Unstable Impairments Impairments Activity Tolerance,Edema,ROM, Transfers Goals 4 Impairment Patient requires mod assistance with lifting left LE on and off the bed Short Term Goal (STG) Patient able to move left LE on and off the bed with min assist STG Duration 04/05/19 Exhibitor Sales Goal (LTG) Patient able to lift his left LE in and out of bed without physical assistance LTG Duration 06/01/18 3 Impairment decreased bilateral ankle ROM Short Term Goal (STG) patient to be independent and compliant in HEP to include sequential lymphedema exercises (which include ankle ROM) STG Duration 03/15/19 Assisted Goal (LTG) Patient to demonstrate bilateral ankle ROM WNL for purposes of functional mobility within the home and community LTG Duration 06/01/18 2 Impairment decreased activity tolerance; patient requires rest after amb 50' Short Term Goal (STG) Patient able to ambulate with FWW for 150' before needing a rest STG Duration 04/05/19 Exhibitor Sales Goal (LTG) Patient able to ambulate at least 300' without excessivre fatigue or need for a rest to help him return to functional community ambulation LTG Duration 06/01/18 1 Impairment bilateral LE lymphedema left greater than right Exhibitor Sales Goal (LTG) Decrease bilateral LE lymphedema to stable level (no increase or decrease greater than 1 cm over the course of 1 wk) and patient to be fit with proper fitting compression wraps. Consider home lymphedema pump. LTG Duration 06/01/18 Assessment Summary Assessment Patient presents with severe lymphedema bilateral LE's left greater than right with weeping from several small open wounds. Recommend referral to wound care in addition to PT. Due to gap in PT treatment between home health and outpatient therapy as well as patient's reported loss of STEPHAN for assistance in the home he has not worn his Circ Aid wraps on his LE's for 2 weeks which has resulted in an increase in his lymphedema as well as decline in his functional status. Trial of sequential pneumatic pump on left LE resulted in decrease in circumferential measurements today. Feel Adiel will benefit highly from PT for lymphedema management to include manual lymphatic drainage, sequential lymphedema exercises, sequential pneumatic pump, lymphedema wrapping, assistance with obtaining good fitting LE wraps and self- managing at home. Patient reports he is anticipating being able to resume STEPHAN assistance in the home soon which will allow him to wear his wraps more consistently. Depending on progress with PT may need to consider home lymphedema pump. Physical Therapy Plan Frequency and Duration Frequency of Treatment 2-3x/wk Duration of Treatment 12 wks Plan of Care Start Date 03/01/19 Plan of Care End Date 06/01/18 Therapeutic Interventions Therapeutic Interventions Home Exercise Program, Lymphedema Management,Manual Therapy,Patient/Caregiver Education,Self-Care/Home Management,Therapeutic Activities,Therapeutic Exercises Modalities Vasopneumatic Devices Other Referrals/Consults Referrals/Consults Recommended Recommend wound care referral Next Visit Focus/Plan Next Note Type Treatment Note Next Visit Plan Sequential pneumatic pump bilateral LE's, MLD, consider short-stretch bandage application vs Circ-Aids depending on patient status. End session on recumbent elliptical to help facilitate lymphatic flow after wraps applied. Plan of Care Dates Plan of Care Start Date 03/01/19 Plan of Care End Date 06/01/18
--- NOTE | 2019-03-03 14:26 | PT.OTN ---
Current Diagnoses Lymphedema, not elsewhere classified (03/03/19) Scar conditions and fibrosis of skin (03/03/19) Weakness (03/03/19) Localized edema (03/03/19) Physical Therapy Treatment Note PT-OP-A Visit Information Start: 03/01/19 12:57 Freq: Status: Active Protocol: Document 03/03/19 14:20 SAK (Rec: 03/03/19 14:26 SAK [id number]) Out-Patient Physical Therapy Visit Information Visit Information Visit Type Treatment Note Visit Start Time 13:00 Visit Stop Time 14:05 Total Visit Minutes 65 Visit Number 2 Number of RETAIL SUPERVISOR Visits 0 Evaluation Information Evaluation Date 03/01/19 Precautions Precautions LBP history of falls open wounds right LE, left LE ( see photos in chart) PT-OP-B Current Condition Start: 03/01/19 12:57 Freq: Status: Active Protocol: Document 03/01/19 12:58 SAK (Rec: 03/01/19 13:16 SAK [id number]) Current Condition History of Current Condition Onset Date 6 wks Current Complaints worsening lymphedema History of Current Condition Lymphedema for at least 5 years following cellulitis bilateral LE's left greater than right. Was improving with Home Health PT but was discharged and then had long gap in PT due to scheduling difficulty with outpatient PT. Hasn't been able to have Circ-Aid wraps on for about 1 month due to lost STEPHAN coverage in addition to being discharged from Home Health PT . Patient unable to don Circ Aids, but is unable to doff. Unable to use above knee wraps; states they always just slide down. States he hasn't used a lymphedema pump in the past. Patient reports back fracture 1 year ago L4-5, has used a walker or w/c since, and reports significant decreased in activity level. Further decrease in activity tolerance with recent increase in lymphedema due to weight of legs. Future Testing and Treatments Planned Sees Dr. Rondon tomorrow. Treatment Goals Patient/Caregiver Goals Decrease edema and improve his general strength and activity tolerance. Prior Functional Status Baseline Function- ADL's Modified Independent Baseline Function- Mobility Modified Independent Baseline Function- Gait 200' with use of FWW Current Functional Impairments (Reported) Functional Limitations- ADL's slow, more difficult Functional Limitations- Mobility/Gait Poor tolerance for gait and mobility due to weight of legs as well as LBP Functional Limitations- Work/School unable to work Functional Limitations- Recreation/ no significant Hobbies Personal Factors Other Personal Factors That May Effect patient is obese Therapy/Recovery PT-OP-C Subjective Start: 03/01/19 12:57 Freq: Status: Active Protocol: Document 03/01/19 12:58 SAK (Rec: 03/01/19 14:58 [facility] [id number]) Patient Questionnaires Lymphedema Life Impact Score Lymphedema Score 50% OP-PT Pain Assessment Pain Assessment Grid Paper Pain Assessment Grid Completed No PT-OP-J Posture/Palpation/Skin Start: 03/01/19 12:57 Freq: Status: Active Protocol: Document 03/01/19 12:58 SAK (Rec: 03/01/19 14:58 SAK [id number]) Palpation Assessment Location bilateral lower legs and feet Palpation Findings Edema,Soft Tissue Tightness Palpation Details fibrosis in reddened areas of bilateral lower legs ( see photos in chart) Skin Assessment Other Assessments Skin Assessment Comments weaping clear fluid from 2 small open areas right anterior carvajal, 3 small open areas lateral left lower leg. Recommended wound care referral; patient to see PCP tomorrow and will request plus PT to fax. PT-OP-K Range of Motion Start: 03/01/19 12:57 Freq: Status: Active Protocol: Document 03/01/19 12:58 [facility] (Rec: 03/01/19 14:58 [facility] [id number]) Hip Goniometric Range of Motion Hip ROM Limitations Hip ROM Limitations Muscle Weakness Comments Requires assist with lifting left LE on and off bed due to edema/weight of leg. States he has a pole at home which he uses for getting in and out of bed. Knee Goniometric Range of Motion Knee shalonda Knee ROM WFL Yes Ankle and Foot Goniometric Range of Motion Ankle and Foot shalonda Ankle/Foot ROM WFL No Testing Position Supine Dorsiflexion with Knee Extended 0 Ankle and Foot ROM Limitations ROM Limitations Soft Tissue Tightness,Muscle Weakness,Swelling PT-OP-N Lymphedema Start: 03/01/19 12:57 Freq: Status: Active Protocol: Document 03/01/19 12:58 SAK (Rec: 03/01/19 14:58 [facility] [id number]) Lymphedema Measurements Lower Extremity Circumference Measurements Right Affected MT Heads 26.7 cm Medial Malleolus 37.1 cm 10 cm From Medial Malleolus 47.8 cm 20 cm From Medial Malleolus 58.4 cm 30 cm From Medial Malleolus 53.9 cm Left Affected MT Heads 26 cm Medial Malleolus 37.6 cm 10 cm From Medial Malleolus 63.2 cm 20 cm From Medial Malleolus 71.3 cm 30 cm From Medial Malleolus 63.6 cm Comments Lymphedema Comments knee: 48.2 cm left, 46.5 right PT-OP-Q Treatments Start: 03/01/19 12:57 Freq: Status: Active Protocol: Document 03/03/19 14:20 [facility] (Rec: 03/03/19 14:26 [facility] [id number]) Lymphedema Treatment Manual Lymphatic Drainage Location right LE foot to knee Duration 20 min Lymphedema Wrapping Body Location bilateral feet and lower legs Materials Artiflex and Comprilan shalonda due to poor fit of circ aids Patient Education Compression Garments need for better fitting Circ Aids once LE's reduced in size Sequential Lymphedema Exercises verbal review PT-OP-R Modalities Start: 03/01/19 12:57 Freq: Status: Active Protocol: Document 03/03/19 14:20 [facility] (Rec: 03/03/19 14:26 [facility] [id number]) Compression Pump Treatment Treatment Location left LE Pressure Amount (mmHg) (mmHG) 40 Inflation Time (Seconds) 30 Deflation Time (Seconds) 10 Treatment Duration (minutes) 30 Treatment Tolerance Good Treatment Comments Sequential pneumatic pump PT-OP-T Assessment and Plan Start: 03/01/19 12:57 Freq: Status: Active Protocol: Document 03/03/19 14:20 [facility] (Rec: 03/03/19 14:26 [facility] [id number]) Physical Therapy Assessment Goals 4 Impairment Patient requires mod assistance with lifting left LE on and off the bed Short Term Goal (STG) Patient able to move left LE on and off the bed with min assist STG Duration 04/05/19 [facility]fp Goal (LTG) Patient able to lift his left LE in and out of bed without physical assistance LTG Duration 06/01/18 3 Impairment decreased bilateral ankle ROM Short Term Goal (STG) patient to be independent and compliant in HEP to include sequential lymphedema exercises (which include ankle ROM) STG Duration 03/15/19 Mcfp Goal (LTG) Patient to demonstrate bilateral ankle ROM WNL for purposes of functional mobility within the home and community LTG Duration 06/01/18 2 Impairment decreased activity tolerance; patient requires rest after amb 50' Short Term Goal (STG) Patient able to ambulate with FWW for 150' before needing a rest STG Duration 04/05/19 Office Assistance Goal (LTG) Patient able to ambulate at least 300' without excessivre fatigue or need for a rest to help him return to functional community ambulation LTG Duration 06/01/18 1 Impairment bilateral LE lymphedema left greater than right Mcfp Goal (LTG) Decrease bilateral LE lymphedema to stable level (no increase or decrease greater than 1 cm over the course of 1 wk) and patient to be fit with proper fitting compression wraps. Consider home lymphedema pump. LTG Duration 06/01/18 Assessment Summary Assessment Due to patient time constraints only pumped left LE and provided MLD to right LE. Short stretch bandages ( Comprilan) over Artiflex applied due to poor fitting Circ Aids; his Circ aids are too short for his legs and won 't even fit on left. Good tolerance for the application of bandages today with improved ability to ambulate noted after treatment as compared to prior. Awaiting wound care referral; today PT applied Aquacell Foam pads over open areas right LE. Physical Therapy Plan Frequency and Duration Frequency of Treatment 2-3x/wk Duration of Treatment 12 wks Plan of Care Start Date 03/01/19 Plan of Care End Date 06/01/18 Therapeutic Interventions Therapeutic Interventions Home Exercise Program, Lymphedema Management,Manual Therapy,Patient/Caregiver Education,Self-Care/Home Management,Therapeutic Activities,Therapeutic Exercises Modalities Vasopneumatic Devices Next Visit Focus/Plan Next Note Type Treatment Note Next Visit Plan Sequential pneumatic pump bilateral LE's, MLD, consider short-stretch bandage application vs Circ-Aids depending on patient status. End session on recumbent elliptical to help facilitate lymphatic flow after wraps applied.
--- NOTE | 2019-03-03 14:28 | PT.OTN ---
Current Diagnoses Lymphedema, not elsewhere classified (03/03/19) Scar conditions and fibrosis of skin (03/03/19) Weakness (03/03/19) Localized edema (03/03/19) Physical Therapy Treatment Note PT-OP-A Visit Information Start: 03/01/19 12:57 Freq: Status: Active Protocol: Document 03/03/19 14:16 SAK (Rec: 03/03/19 14:26 SAK [id number]) Out-Patient Physical Therapy Visit Information Visit Information Visit Type Treatment Note Visit Start Time 13:00 Visit Stop Time 14:05 Total Visit Minutes 65 Visit Number 2 Number of PLANT SCIENTIST Visits 0 Evaluation Information Evaluation Date 03/01/19 Precautions Precautions LBP history of falls open wounds right LE, left LE ( see photos in chart) PT-OP-B Current Condition Start: 03/01/19 12:57 Freq: Status: Active Protocol: Document 03/01/19 12:58 SAK (Rec: 03/01/19 13:16 SAK [id number]) Current Condition History of Current Condition Onset Date 6 wks Current Complaints worsening lymphedema History of Current Condition Lymphedema for at least 5 years following cellulitis bilateral LE's left greater than right. Was improving with Home Health PT but was discharged and then had long gap in PT due to scheduling difficulty with outpatient PT. Hasn't been able to have Circ-Aid wraps on for about 1 month due to lost STEPHAN coverage in addition to being discharged from Home Health PT . Patient unable to don Circ Aids, but is unable to doff. Unable to use above knee wraps; states they always just slide down. States he hasn't used a lymphedema pump in the past. Patient reports back fracture 1 year ago L4-5, has used a walker or w/c since, and reports significant decreased in activity level. Further decrease in activity tolerance with recent increase in lymphedema due to weight of legs. Future Testing and Treatments Planned Sees Dr. Rondon tomorrow. Treatment Goals Patient/Caregiver Goals Decrease edema and improve his general strength and activity tolerance. Prior Functional Status Baseline Function- ADL's Modified Independent Baseline Function- Mobility Modified Independent Baseline Function- Gait 200' with use of FWW Current Functional Impairments (Reported) Functional Limitations- ADL's slow, more difficult Functional Limitations- Mobility/Gait Poor tolerance for gait and mobility due to weight of legs as well as LBP Functional Limitations- Work/School unable to work Functional Limitations- Recreation/ no significant Hobbies Personal Factors Other Personal Factors That May Effect patient is obese Therapy/Recovery PT-OP-C Subjective Start: 03/01/19 12:57 Freq: Status: Active Protocol: Document 03/03/19 14:16 SAK (Rec: 03/03/19 14:28 SAK [id number]) OP-PT Subjective Patient Comments Patient Comments Patient reports he saw his physician yesterday; is going to refer him to wound care. Circ Aid won't stay on. Patient Questionnaires ABC- Activity Specific Balance Confidence Scale ABC Functional Impairment 60 to <80% Impaired (Score 21- 40) PT-OP-J Posture/Palpation/Skin Start: 03/01/19 12:57 Freq: Status: Active Protocol: Document 03/01/19 12:58 SAK (Rec: 03/01/19 14:58 SAK [id number]) Palpation Assessment Location bilateral lower legs and feet Palpation Findings Edema,Soft Tissue Tightness Palpation Details fibrosis in reddened areas of bilateral lower legs ( see photos in chart) Skin Assessment Other Assessments Skin Assessment Comments weaping clear fluid from 2 small open areas right anterior carvajal, 3 small open areas lateral left lower leg. Recommended wound care referral; patient to see PCP tomorrow and will request plus PT to fax. PT-OP-K Range of Motion Start: 03/01/19 12:57 Freq: Status: Active Protocol: Document 03/01/19 12:58 SAK (Rec: 03/01/19 14:58 SAK [id number]) Hip Goniometric Range of Motion Hip ROM Limitations Hip ROM Limitations Muscle Weakness Comments Requires assist with lifting left LE on and off bed due to edema/weight of leg. States he has a pole at home which he uses for getting in and out of bed. Knee Goniometric Range of Motion Knee shalonda Knee ROM WFL Yes Ankle and Foot Goniometric Range of Motion Ankle and Foot shalonda Ankle/Foot ROM WFL No Testing Position Supine Dorsiflexion with Knee Extended 0 Ankle and Foot ROM Limitations ROM Limitations Soft Tissue Tightness,Muscle Weakness,Swelling PT-OP-N Lymphedema Start: 03/01/19 12:57 Freq: Status: Active Protocol: Document 03/01/19 12:58 SAK (Rec: 03/01/19 14:58 SAK [id number]) Lymphedema Measurements Lower Extremity Circumference Measurements Right Affected MT Heads 26.7 cm Medial Malleolus 37.1 cm 10 cm From Medial Malleolus 47.8 cm 20 cm From Medial Malleolus 58.4 cm 30 cm From Medial Malleolus 53.9 cm Left Affected MT Heads 26 cm Medial Malleolus 37.6 cm 10 cm From Medial Malleolus 63.2 cm 20 cm From Medial Malleolus 71.3 cm 30 cm From Medial Malleolus 63.6 cm Comments Lymphedema Comments knee: 48.2 cm left, 46.5 right PT-OP-Q Treatments Start: 03/01/19 12:57 Freq: Status: Active Protocol: Document 03/03/19 14:16 [facility] (Rec: 03/03/19 14:26 [facility] [id number]) Lymphedema Treatment Manual Lymphatic Drainage Location right LE foot to knee Duration 20 min Lymphedema Wrapping Body Location bilateral feet and lower legs Materials Artiflex and Comprilan shalonda due to poor fit of circ aids Patient Education Compression Garments need for better fitting Circ Aids once LE's reduced in size Sequential Lymphedema Exercises verbal review PT-OP-R Modalities Start: 03/01/19 12:57 Freq: Status: Active Protocol: Document 03/03/19 14:16 [facility] (Rec: 03/03/19 14:26 [facility] [id number]) Compression Pump Treatment Treatment Location left LE Pressure Amount (mmHg) (mmHG) 40 Inflation Time (Seconds) 30 Deflation Time (Seconds) 10 Treatment Duration (minutes) 30 Treatment Tolerance Good Treatment Comments Sequential pneumatic pump PT-OP-T Assessment and Plan Start: 03/01/19 12:57 Freq: Status: Active Protocol: Document 03/03/19 14:16 [facility] (Rec: 03/03/19 14:26 [facility] [id number]) Physical Therapy Assessment Goals 4 Impairment Patient requires mod assistance with lifting left LE on and off the bed Short Term Goal (STG) Patient able to move left LE on and off the bed with min assist STG Duration 04/05/19 Senior Care Goal (LTG) Patient able to lift his left LE in and out of bed without physical assistance LTG Duration 06/01/18 3 Impairment decreased bilateral ankle ROM Short Term Goal (STG) patient to be independent and compliant in HEP to include sequential lymphedema exercises (which include ankle ROM) STG Duration 03/15/19 Telecommunications Sales Representative Goal (LTG) Patient to demonstrate bilateral ankle ROM WNL for purposes of functional mobility within the home and community LTG Duration 06/01/18 2 Impairment decreased activity tolerance; patient requires rest after amb 50' Short Term Goal (STG) Patient able to ambulate with FWW for 150' before needing a rest STG Duration 04/05/19 Telecommunications Sales Representative Goal (LTG) Patient able to ambulate at least 300' without excessivre fatigue or need for a rest to help him return to functional community ambulation LTG Duration 06/01/18 1 Impairment bilateral LE lymphedema left greater than right Senior Care Goal (LTG) Decrease bilateral LE lymphedema to stable level (no increase or decrease greater than 1 cm over the course of 1 wk) and patient to be fit with proper fitting compression wraps. Consider home lymphedema pump. LTG Duration 06/01/18 Assessment Summary Assessment Due to patient time constraints only pumped left LE and provided MLD to right LE. Short stretch bandages ( Comprilan) over Artiflex applied due to poor fitting Circ Aids; his Circ aids are too short for his legs and won 't even fit on left. Good tolerance for the application of bandages today with improved ability to ambulate noted after treatment as compared to prior. Awaiting wound care referral; today PT applied Aquacell Foam pads over open areas right LE. Physical Therapy Plan Frequency and Duration Frequency of Treatment 2-3x/wk Duration of Treatment 12 wks Plan of Care Start Date 03/01/19 Plan of Care End Date 06/01/18 Therapeutic Interventions Therapeutic Interventions Home Exercise Program, Lymphedema Management,Manual Therapy,Patient/Caregiver Education,Self-Care/Home Management,Therapeutic Activities,Therapeutic Exercises Modalities Vasopneumatic Devices Next Visit Focus/Plan Next Note Type Treatment Note Next Visit Plan Sequential pneumatic pump bilateral LE's, MLD, consider short-stretch bandage application vs Circ-Aids depending on patient status. End session on recumbent elliptical to help facilitate lymphatic flow after wraps applied.
--- NOTE | 2019-03-08 14:27 | PT.OTN ---
Current Diagnoses Lymphedema, not elsewhere classified (03/08/19) Scar conditions and fibrosis of skin (03/08/19) Weakness (03/08/19) Localized edema (03/08/19) Physical Therapy Treatment Note PT-OP-A Visit Information Start: 03/01/19 12:57 Freq: Status: Active Protocol: Document 03/08/19 12:57 SAK (Rec: 03/08/19 14:27 SAK [id number]) Out-Patient Physical Therapy Visit Information Visit Information Visit Type Treatment Note Visit Start Time 13:00 Visit Stop Time 13:25 Total Visit Minutes 85 Visit Number 3 Number of IN FLIGHT TECHNICIAN Visits 0 Precautions Precautions LBP history of falls open wounds right LE, left LE ( see photos in chart) PT-OP-B Current Condition Start: 03/01/19 12:57 Freq: Status: Active Protocol: Document 03/01/19 12:58 SAK (Rec: 03/01/19 13:16 SAK [id number]) Current Condition History of Current Condition Onset Date 6 wks Current Complaints worsening lymphedema History of Current Condition Lymphedema for at least 5 years following cellulitis bilateral LE's left greater than right. Was improving with Home Health PT but was discharged and then had long gap in PT due to scheduling difficulty with outpatient PT. Hasn't been able to have Circ-Aid wraps on for about 1 month due to lost STEPHAN coverage in addition to being discharged from Home Health PT . Patient unable to don Circ Aids, but is unable to doff. Unable to use above knee wraps; states they always just slide down. States he hasn't used a lymphedema pump in the past. Patient reports back fracture 1 year ago L4-5, has used a walker or w/c since, and reports significant decreased in activity level. Further decrease in activity tolerance with recent increase in lymphedema due to weight of legs. Future Testing and Treatments Planned Sees Dr. Rondon tomorrow. Treatment Goals Patient/Caregiver Goals Decrease edema and improve his general strength and activity tolerance. Prior Functional Status Baseline Function- ADL's Modified Independent Baseline Function- Mobility Modified Independent Baseline Function- Gait 200' with use of FWW Current Functional Impairments (Reported) Functional Limitations- ADL's slow, more difficult Functional Limitations- Mobility/Gait Poor tolerance for gait and mobility due to weight of legs as well as LBP Functional Limitations- Work/School unable to work Functional Limitations- Recreation/ no significant Hobbies Personal Factors Other Personal Factors That May Effect patient is obese Therapy/Recovery PT-OP-C Subjective Start: 03/01/19 12:57 Freq: Status: Active Protocol: Document 03/08/19 12:57 SAK (Rec: 03/08/19 14:27 SAK [id number]) OP-PT Subjective Patient Comments Patient Comments Reports his wraps stayed on for 3-4 days, then upper part came apart. Went to wound care just prior to PT. PT-OP-J Posture/Palpation/Skin Start: 03/01/19 12:57 Freq: Status: Active Protocol: Document 03/01/19 12:58 SAK (Rec: 03/01/19 14:58 SAK [id number]) Palpation Assessment Location bilateral lower legs and feet Palpation Findings Edema,Soft Tissue Tightness Palpation Details fibrosis in reddened areas of bilateral lower legs ( see photos in chart) Skin Assessment Other Assessments Skin Assessment Comments weaping clear fluid from 2 small open areas right anterior carvajal, 3 small open areas lateral left lower leg. Recommended wound care referral; patient to see PCP tomorrow and will request plus PT to fax. PT-OP-K Range of Motion Start: 03/01/19 12:57 Freq: Status: Active Protocol: Document 03/01/19 12:58 SAK (Rec: 03/01/19 14:58 SAK [id number]) Hip Goniometric Range of Motion Hip ROM Limitations Hip ROM Limitations Muscle Weakness Comments Requires assist with lifting left LE on and off bed due to edema/weight of leg. States he has a pole at home which he uses for getting in and out of bed. Knee Goniometric Range of Motion Knee shalonda Knee ROM WFL Yes Ankle and Foot Goniometric Range of Motion Ankle and Foot shalonda Ankle/Foot ROM WFL No Testing Position Supine Dorsiflexion with Knee Extended 0 Ankle and Foot ROM Limitations ROM Limitations Soft Tissue Tightness,Muscle Weakness,Swelling PT-OP-N Lymphedema Start: 03/01/19 12:57 Freq: Status: Active Protocol: Document 03/01/19 12:58 SAK (Rec: 03/01/19 14:58 SAK [id number]) Lymphedema Measurements Lower Extremity Circumference Measurements Right Affected MT Heads 26.7 cm Medial Malleolus 37.1 cm 10 cm From Medial Malleolus 47.8 cm 20 cm From Medial Malleolus 58.4 cm 30 cm From Medial Malleolus 53.9 cm Left Affected MT Heads 26 cm Medial Malleolus 37.6 cm 10 cm From Medial Malleolus 63.2 cm 20 cm From Medial Malleolus 71.3 cm 30 cm From Medial Malleolus 63.6 cm Comments Lymphedema Comments knee: 48.2 cm left, 46.5 right PT-OP-Q Treatments Start: 03/01/19 12:57 Freq: Status: Active Protocol: Document 03/08/19 12:57 SAK (Rec: 03/08/19 14:27 SAK [id number]) Cardio Equipment Recumbent Stepper (Sci-Fit) Duration (Minutes) 10 Resistance 1 Seat Position 12 Other to facilitate lymphatic flow after LE wrapping. Lymphedema Treatment Manual Lymphatic Drainage Location right LE foot to knee Duration 25 min Lymphedema Wrapping Body Location bilateral feet and lower legs Materials Artiflex and Comprilan shalonda due to poor fit of circ aids PT-OP-R Modalities Start: 03/01/19 12:57 Freq: Status: Active Protocol: Document 03/08/19 12:57 SAK (Rec: 03/08/19 14:27 [facility] [id number]) Compression Pump Treatment Treatment Location left LE Pressure Amount (mmHg) (mmHG) 40 Inflation Time (Seconds) 30 Deflation Time (Seconds) 10 Treatment Duration (minutes) 30 Treatment Tolerance Good Treatment Comments Sequential pneumatic pump PT-OP-T Assessment and Plan Start: 03/01/19 12:57 Freq: Status: Active Protocol: Document 03/08/19 12:57 [facility] (Rec: 03/08/19 14:27 [facility] [id number]) Physical Therapy Assessment Goals 4 Impairment Patient requires mod assistance with lifting left LE on and off the bed Short Term Goal (STG) Patient able to move left LE on and off the bed with min assist STG Duration 04/05/19 [facility] Goal (LTG) Patient able to lift his left LE in and out of bed without physical assistance LTG Duration 06/01/18 3 Impairment decreased bilateral ankle ROM Short Term Goal (STG) patient to be independent and compliant in HEP to include sequential lymphedema exercises (which include ankle ROM) STG Duration 03/15/19 [facility] Goal (LTG) Patient to demonstrate bilateral ankle ROM WNL for purposes of functional mobility within the home and community LTG Duration 2/19/19 2 Impairment decreased activity tolerance; patient requires rest after amb 50' Short Term Goal (STG) Patient able to ambulate with FWW for 150' before needing a rest STG Duration 04/05/19 [employer] Cane Farm Manager Goal (LTG) Patient able to ambulate at least 300' without excessivre fatigue or need for a rest to help him return to functional community ambulation LTG Duration 06/01/18 1 Impairment bilateral LE lymphedema left greater than right Penitentiary Goal (LTG) Decrease bilateral LE lymphedema to stable level (no increase or decrease greater than 1 cm over the course of 1 wk) and patient to be fit with proper fitting compression wraps. Consider home lymphedema pump. LTG Duration 06/01/18 Physical Therapy Plan Frequency and Duration Frequency of Treatment 2-3x/wk Duration of Treatment 12 wks Plan of Care Start Date 03/01/19 Plan of Care End Date 06/01/18 Therapeutic Interventions Therapeutic Interventions Home Exercise Program, Lymphedema Management,Manual Therapy,Patient/Caregiver Education,Self-Care/Home Management,Therapeutic Activities,Therapeutic Exercises Modalities Vasopneumatic Devices Next Visit Focus/Plan Next Note Type Treatment Note Next Visit Plan Continue lymphedema management . Patient and physician working to get STEPHAN assistance in the home.
--- NOTE | 2019-03-15 15:58 | PT.OTN ---
Current Diagnoses Lymphedema, not elsewhere classified (03/15/19) Scar conditions and fibrosis of skin (03/15/19) Weakness (03/15/19) Localized edema (03/15/19) Physical Therapy Treatment Note PT-OP-A Visit Information Start: 03/01/19 12:57 Freq: Status: Active Protocol: Document 03/15/19 15:47 SAK (Rec: 03/15/19 15:58 SAK [id number]) Out-Patient Physical Therapy Visit Information Visit Information Visit Type Treatment Note Visit Start Time 13:00 Visit Stop Time 13:24 Total Visit Minutes 84 Visit Number 4 Number of SENIOR ELECTRICAL PROJECT MANAGER Visits 0 Evaluation Information Evaluation Date 03/01/19 Precautions Precautions LBP history of falls open wounds right LE, left LE ( see photos in chart) PT-OP-B Current Condition Start: 03/01/19 12:57 Freq: Status: Active Protocol: Document 03/01/19 12:58 SAK (Rec: 03/01/19 13:16 SAK [id number]) Current Condition History of Current Condition Onset Date 6 wks Current Complaints worsening lymphedema History of Current Condition Lymphedema for at least 5 years following cellulitis bilateral LE's left greater than right. Was improving with Home Health PT but was discharged and then had long gap in PT due to scheduling difficulty with outpatient PT. Hasn't been able to have Circ-Aid wraps on for about 1 month due to lost STEPHAN coverage in addition to being discharged from Home Health PT . Patient unable to don Circ Aids, but is unable to doff. Unable to use above knee wraps; states they always just slide down. States he hasn't used a lymphedema pump in the past. Patient reports back fracture 1 year ago L4-5, has used a walker or w/c since, and reports significant decreased in activity level. Further decrease in activity tolerance with recent increase in lymphedema due to weight of legs. Future Testing and Treatments Planned Sees Dr. Rondon tomorrow. Treatment Goals Patient/Caregiver Goals Decrease edema and improve his general strength and activity tolerance. Prior Functional Status Baseline Function- ADL's Modified Independent Baseline Function- Mobility Modified Independent Baseline Function- Gait 200' with use of FWW Current Functional Impairments (Reported) Functional Limitations- ADL's slow, more difficult Functional Limitations- Mobility/Gait Poor tolerance for gait and mobility due to weight of legs as well as LBP Functional Limitations- Work/School unable to work Functional Limitations- Recreation/ no significant Hobbies Personal Factors Other Personal Factors That May Effect patient is obese Therapy/Recovery PT-OP-C Subjective Start: 03/01/19 12:57 Freq: Status: Active Protocol: Document 03/15/19 15:47 SAK (Rec: 03/15/19 15:58 SAK [id number]) OP-PT Subjective Patient Comments Patient Comments Has wound care after PT today. Right LE stayed wrapped, left LE top area came unwrapped 03/12/19 and he is unable to rewrap. PT-OP-J Posture/Palpation/Skin Start: 03/01/19 12:57 Freq: Status: Active Protocol: Document 03/01/19 12:58 SAK (Rec: 03/01/19 14:58 SAK [id number]) Palpation Assessment Location bilateral lower legs and feet Palpation Findings Edema,Soft Tissue Tightness Palpation Details fibrosis in reddened areas of bilateral lower legs ( see photos in chart) Skin Assessment Other Assessments Skin Assessment Comments weaping clear fluid from 2 small open areas right anterior carvajal, 3 small open areas lateral left lower leg. Recommended wound care referral; patient to see PCP tomorrow and will request plus PT to fax. PT-OP-K Range of Motion Start: 03/01/19 12:57 Freq: Status: Active Protocol: Document 03/01/19 12:58 SAK (Rec: 03/01/19 14:58 SAK [id number]) Hip Goniometric Range of Motion Hip ROM Limitations Hip ROM Limitations Muscle Weakness Comments Requires assist with lifting left LE on and off bed due to edema/weight of leg. States he has a pole at home which he uses for getting in and out of bed. Knee Goniometric Range of Motion Knee shalonda Knee ROM WFL Yes Ankle and Foot Goniometric Range of Motion Ankle and Foot shalonda Ankle/Foot ROM WFL No Testing Position Supine Dorsiflexion with Knee Extended 0 Ankle and Foot ROM Limitations ROM Limitations Soft Tissue Tightness,Muscle Weakness,Swelling PT-OP-N Lymphedema Start: 03/01/19 12:57 Freq: Status: Active Protocol: Document 03/01/19 12:58 SAK (Rec: 03/01/19 14:58 SAK [id number]) Lymphedema Measurements Lower Extremity Circumference Measurements Right Affected MT Heads 26.7 cm Medial Malleolus 37.1 cm 10 cm From Medial Malleolus 47.8 cm 20 cm From Medial Malleolus 58.4 cm 30 cm From Medial Malleolus 53.9 cm Left Affected MT Heads 26 cm Medial Malleolus 37.6 cm 10 cm From Medial Malleolus 63.2 cm 20 cm From Medial Malleolus 71.3 cm 30 cm From Medial Malleolus 63.6 cm Comments Lymphedema Comments knee: 48.2 cm left, 46.5 right PT-OP-Q Treatments Start: 03/01/19 12:57 Freq: Status: Active Protocol: Document 03/15/19 15:47 [facility] (Rec: 03/15/19 15:58 [facility] [id number]) Cardio Equipment Recumbent Stepper (Sci-Fit) Duration (Minutes) 10 Resistance 1 Seat Position 12 Other to facilitate lymphatic flow after Dermagrip and foot Circ Aids applied Lymphedema Treatment Manual Lymphatic Drainage Location shalonda LE Duration 30 min Lymphedema Wrapping Body Location shalonda LE's Materials Dermagrip ankles to knees ( size H right, J left), Circ- aids to feet shalonda. No lymphedema wraps due to going to wound care after PT Patient Education Sequential Lymphedema Exercises increase frequency to 2x/wk PT-OP-R Modalities Start: 03/01/19 12:57 Freq: Status: Active Protocol: Document 03/15/19 15:47 [facility] (Rec: 03/15/19 15:58 [facility] [id number]) Compression Pump Treatment Treatment Location left LE Pressure Amount (mmHg) (mmHG) 40 Inflation Time (Seconds) 30 Deflation Time (Seconds) 10 Treatment Duration (minutes) 30 Treatment Tolerance Good Treatment Comments Sequential pneumatic pump PT-OP-T Assessment and Plan Start: 03/01/19 12:57 Freq: Status: Active Protocol: Document 03/15/19 15:47 [facility] (Rec: 03/15/19 15:58 [facility] [id number]) Physical Therapy Assessment Goals 4 Impairment Patient requires mod assistance with lifting left LE on and off the bed Short Term Goal (STG) Patient able to move left LE on and off the bed with min assist STG Duration 04/05/19 Half-Way Goal (LTG) Patient able to lift his left LE in and out of bed without physical assistance LTG Duration 06/01/18 3 Impairment decreased bilateral ankle ROM Short Term Goal (STG) patient to be independent and compliant in HEP to include sequential lymphedema exercises (which include ankle ROM) STG Duration 03/15/19 Half-Way Goal (LTG) Patient to demonstrate bilateral ankle ROM WNL for purposes of functional mobility within the home and community LTG Duration 06/01/18 2 Impairment decreased activity tolerance; patient requires rest after amb 50' Short Term Goal (STG) Patient able to ambulate with FWW for 150' before needing a rest STG Duration 04/05/19 Half-Way Goal (LTG) Patient able to ambulate at least 300' without excessivre fatigue or need for a rest to help him return to functional community ambulation LTG Duration 06/01/18 1 Impairment bilateral LE lymphedema left greater than right Paediatric Thoracic Physician Goal (LTG) Decrease bilateral LE lymphedema to stable level (no increase or decrease greater than 1 cm over the course of 1 wk) and patient to be fit with proper fitting compression wraps. Consider home lymphedema pump. LTG Duration 06/01/18 Assessment Summary Assessment Dermagrip and foot Circ-Aids applied prior to patient doing Sci-Fit ex and going to wound care. Encouraged patient to schedule wound care prior to PT sessions. Physical Therapy Plan Frequency and Duration Frequency of Treatment 2-3x/wk Duration of Treatment 12 wks Plan of Care Start Date 03/01/19 Plan of Care End Date 06/01/18 Therapeutic Interventions Therapeutic Interventions Home Exercise Program, Lymphedema Management,Manual Therapy,Patient/Caregiver Education,Self-Care/Home Management,Therapeutic Activities,Therapeutic Exercises Modalities Vasopneumatic Devices Next Visit Focus/Plan Next Note Type Treatment Note Next Visit Plan Continue lymphedema management . Encourage increased activity level and exercise to make use of muscle pump for lymphedema reduction.
--- NOTE | 2019-03-17 14:22 | PT.OTN ---
Current Diagnoses Lymphedema, not elsewhere classified (03/17/19) Scar conditions and fibrosis of skin (03/17/19) Weakness (03/17/19) Localized edema (03/17/19) Physical Therapy Treatment Note PT-OP-A Visit Information Start: 03/01/19 12:57 Freq: Status: Active Protocol: Document 03/17/19 14:16 SAK (Rec: 03/17/19 14:22 SAK [id number]) Out-Patient Physical Therapy Visit Information Visit Information Visit Type Treatment Note Visit Start Time 13:00 Visit Stop Time 14:30 Total Visit Minutes 90 Visit Number 5 Number of DRIVER RETRAINING INSTRUCTOR Visits 0 Evaluation Information Evaluation Date 03/01/19 Precautions Precautions LBP history of falls open wounds right LE, left LE ( see photos in chart) PT-OP-B Current Condition Start: 03/01/19 12:57 Freq: Status: Active Protocol: Document 03/01/19 12:58 [facility] (Rec: 03/01/19 13:16 SAK [id number]) Current Condition History of Current Condition Onset Date 6 wks Current Complaints worsening lymphedema History of Current Condition Lymphedema for at least 5 years following cellulitis bilateral LE's left greater than right. Was improving with Home Health PT but was discharged and then had long gap in PT due to scheduling difficulty with outpatient PT. Hasn't been able to have Circ-Aid wraps on for about 1 month due to lost STEPHAN coverage in addition to being discharged from Home Health PT . Patient unable to don Circ Aids, but is unable to doff. Unable to use above knee wraps; states they always just slide down. States he hasn't used a lymphedema pump in the past. Patient reports back fracture 1 year ago L4-5, has used a walker or w/c since, and reports significant decreased in activity level. Further decrease in activity tolerance with recent increase in lymphedema due to weight of legs. Future Testing and Treatments Planned Sees Dr. Rondon tomorrow. Treatment Goals Patient/Caregiver Goals Decrease edema and improve his general strength and activity tolerance. Prior Functional Status Baseline Function- ADL's Modified Independent Baseline Function- Mobility Modified Independent Baseline Function- Gait 200' with use of FWW Current Functional Impairments (Reported) Functional Limitations- ADL's slow, more difficult Functional Limitations- Mobility/Gait Poor tolerance for gait and mobility due to weight of legs as well as LBP Functional Limitations- Work/School unable to work Functional Limitations- Recreation/ no significant Hobbies Personal Factors Other Personal Factors That May Effect patient is obese Therapy/Recovery PT-OP-C Subjective Start: 03/01/19 12:57 Freq: Status: Active Protocol: Document 03/17/19 14:16 SAK (Rec: 03/17/19 14:22 SAK [id number]) OP-PT Subjective Patient Comments Patient Comments Like used of Tubigrip/Demigrip better than lymphedema wraps plus use of his CirC Aids on feet. No Circ Aids on when arrives at PT due to not able to fit in shoes adequately to allow him to go to grocery store. PT-OP-J Posture/Palpation/Skin Start: 03/01/19 12:57 Freq: Status: Active Protocol: Document 03/01/19 12:58 SAK (Rec: 03/01/19 14:58 SAK [id number]) Palpation Assessment Location bilateral lower legs and feet Palpation Findings Edema,Soft Tissue Tightness Palpation Details fibrosis in reddened areas of bilateral lower legs ( see photos in chart) Skin Assessment Other Assessments Skin Assessment Comments weaping clear fluid from 2 small open areas right anterior carvajal, 3 small open areas lateral left lower leg. Recommended wound care referral; patient to see PCP tomorrow and will request plus PT to fax. PT-OP-K Range of Motion Start: 03/01/19 12:57 Freq: Status: Active Protocol: Document 03/01/19 12:58 SAK (Rec: 03/01/19 14:58 SAK [id number]) Hip Goniometric Range of Motion Hip ROM Limitations Hip ROM Limitations Muscle Weakness Comments Requires assist with lifting left LE on and off bed due to edema/weight of leg. States he has a pole at home which he uses for getting in and out of bed. Knee Goniometric Range of Motion Knee shalonda Knee ROM WFL Yes Ankle and Foot Goniometric Range of Motion Ankle and Foot shalonda Ankle/Foot ROM WFL No Testing Position Supine Dorsiflexion with Knee Extended 0 Ankle and Foot ROM Limitations ROM Limitations Soft Tissue Tightness,Muscle Weakness,Swelling PT-OP-N Lymphedema Start: 03/01/19 12:57 Freq: Status: Active Protocol: Document 03/01/19 12:58 SAK (Rec: 03/01/19 14:58 SAK [id number]) Lymphedema Measurements Lower Extremity Circumference Measurements Right Affected MT Heads 26.7 cm Medial Malleolus 37.1 cm 10 cm From Medial Malleolus 47.8 cm 20 cm From Medial Malleolus 58.4 cm 30 cm From Medial Malleolus 53.9 cm Left Affected MT Heads 26 cm Medial Malleolus 37.6 cm 10 cm From Medial Malleolus 63.2 cm 20 cm From Medial Malleolus 71.3 cm 30 cm From Medial Malleolus 63.6 cm Comments Lymphedema Comments knee: 48.2 cm left, 46.5 right PT-OP-Q Treatments Start: 03/01/19 12:57 Freq: Status: Active Protocol: Document 03/17/19 14:16 [facility] (Rec: 03/17/19 14:22 [facility] [id number]) Cardio Equipment Recumbent Stepper (Sci-Fit) Duration (Minutes) 10 Resistance 1 Seat Position 12 Other to facilitate lymphatic flow after Dermagrip and foot Circ Aids applied Lymphedema Treatment Manual Lymphatic Drainage Location shalonda LE Duration 30 min Comments including skin care with Cetaphil lotion Lymphedema Wrapping Body Location shalonda LE's Materials Dermagrip ankles to knees ( size H right, J left),feet to ankle (size E right, F left) Patient Education Sequential Lymphedema Exercises reviewed need for 2x/day PT-OP-R Modalities Start: 03/01/19 12:57 Freq: Status: Active Protocol: Document 03/17/19 14:16 [facility] (Rec: 03/17/19 14:22 [facility] [id number]) Compression Pump Treatment Treatment Location left LE Pressure Amount (mmHg) (mmHG) 40 Inflation Time (Seconds) 30 Deflation Time (Seconds) 10 Treatment Duration (minutes) 30 Treatment Tolerance Good Treatment Comments Sequential pneumatic pump PT-OP-T Assessment and Plan Start: 03/01/19 12:57 Freq: Status: Active Protocol: Document 03/17/19 14:16 [facility] (Rec: 03/17/19 14:22 [facility] [id number]) Physical Therapy Assessment Goals 4 Impairment Patient requires mod assistance with lifting left LE on and off the bed Short Term Goal (STG) Patient able to move left LE on and off the bed with min assist STG Duration 04/05/19 Pari Mutuel Ticket Cashier Goal (LTG) Patient able to lift his left LE in and out of bed without physical assistance LTG Duration 2/19/19 3 Impairment decreased bilateral ankle ROM Short Term Goal (STG) patient to be independent and compliant in HEP to include sequential lymphedema exercises (which include ankle ROM) STG Duration 03/15/19 [employer] Cashier Goal (LTG) Patient to demonstrate bilateral ankle ROM WNL for purposes of functional mobility within the home and community LTG Duration 06/01/18 2 Impairment decreased activity tolerance; patient requires rest after amb 50' Short Term Goal (STG) Patient able to ambulate with FWW for 150' before needing a rest STG Duration 04/05/19 Jail Goal (LTG) Patient able to ambulate at least 300' without excessivre fatigue or need for a rest to help him return to functional community ambulation LTG Duration 06/01/18 1 Impairment bilateral LE lymphedema left greater than right Pari [employer] T[employer] Cashier Goal (LTG) Decrease bilateral LE lymphedema to stable level (no increase or decrease greater than 1 cm over the course of 1 wk) and patient to be fit with proper fitting compression wraps. Consider home lymphedema pump. LTG Duration 06/01/18 Assessment Summary Assessment Better tolerance for Dermagrip and foot Circ-Aids. Added Dermagrip to feet as well which fit fully into shoes. Decrease in circumferential measurements. Physical Therapy Plan Frequency and Duration Frequency of Treatment 2-3x/wk Duration of Treatment 12 wks Plan of Care Start Date 03/01/19 Plan of Care End Date 06/01/18 Therapeutic Interventions Therapeutic Interventions Home Exercise Program, Lymphedema Management,Manual Therapy,Patient/Caregiver Education,Self-Care/Home Management,Therapeutic Activities,Therapeutic Exercises Modalities Vasopneumatic Devices Next Visit Focus/Plan Next Note Type Treatment Note Next Visit Plan Continue lymphedema management . Encourage increased activity level and exercise to make use of muscle pump for lymphedema reduction.
--- NOTE | 2019-03-22 15:28 | PT.OTN ---
Current Diagnoses Lymphedema, not elsewhere classified (03/22/19) Scar conditions and fibrosis of skin (03/22/19) Weakness (03/22/19) Localized edema (03/22/19) Physical Therapy Treatment Note PT-OP-A Visit Information Start: 03/01/19 12:57 Freq: Status: Active Protocol: Document 03/22/19 15:20 SAK (Rec: 03/22/19 15:28 SAK [id number]) Out-Patient Physical Therapy Visit Information Visit Information Visit Type Treatment Note Visit Start Time 13:00 Visit Stop Time 14:30 Total Visit Minutes 90 Visit Number 5 Number of PYROMETER TEMPERATURE REGULATOR Visits 0 Evaluation Information Evaluation Date 03/01/19 Precautions Precautions LBP history of falls open wounds right LE, left LE ( see photos in chart) PT-OP-B Current Condition Start: 03/01/19 12:57 Freq: Status: Active Protocol: Document 03/01/19 12:58 SAK (Rec: 03/01/19 13:16 SAK [id number]) Current Condition History of Current Condition Onset Date 6 wks Current Complaints worsening lymphedema History of Current Condition Lymphedema for at least 5 years following cellulitis bilateral LE's left greater than right. Was improving with Home Health PT but was discharged and then had long gap in PT due to scheduling difficulty with outpatient PT. Hasn't been able to have Circ-Aid wraps on for about 1 month due to lost STEPHAN coverage in addition to being discharged from Home Health PT . Patient unable to don Circ Aids, but is unable to doff. Unable to use above knee wraps; states they always just slide down. States he hasn't used a lymphedema pump in the past. Patient reports back fracture 1 year ago L4-5, has used a walker or w/c since, and reports significant decreased in activity level. Further decrease in activity tolerance with recent increase in lymphedema due to weight of legs. Future Testing and Treatments Planned Sees Dr. Rondon tomorrow. Treatment Goals Patient/Caregiver Goals Decrease edema and improve his general strength and activity tolerance. Prior Functional Status Baseline Function- ADL's Modified Independent Baseline Function- Mobility Modified Independent Baseline Function- Gait 200' with use of FWW Current Functional Impairments (Reported) Functional Limitations- ADL's slow, more difficult Functional Limitations- Mobility/Gait Poor tolerance for gait and mobility due to weight of legs as well as LBP Functional Limitations- Work/School unable to work Functional Limitations- Recreation/ no significant Hobbies Personal Factors Other Personal Factors That May Effect patient is obese Therapy/Recovery PT-OP-C Subjective Start: 03/01/19 12:57 Freq: Status: Active Protocol: Document 03/22/19 15:20 SAK (Rec: 03/22/19 15:28 SAK [id number]) OP-PT Subjective Patient Comments Patient Comments Patient arrives at PT following wound care appointment. Reports his legs are almost healed, probably one more wound care visit if everything goes ok. States feet more swollen today. PT-OP-J Posture/Palpation/Skin Start: 03/01/19 12:57 Freq: Status: Active Protocol: Document 03/01/19 12:58 SAK (Rec: 03/01/19 14:58 SAK [id number]) Palpation Assessment Location bilateral lower legs and feet Palpation Findings Edema,Soft Tissue Tightness Palpation Details fibrosis in reddened areas of bilateral lower legs ( see photos in chart) Skin Assessment Other Assessments Skin Assessment Comments weaping clear fluid from 2 small open areas right anterior carvajal, 3 small open areas lateral left lower leg. Recommended wound care referral; patient to see PCP tomorrow and will request plus PT to fax. PT-OP-K Range of Motion Start: 03/01/19 12:57 Freq: Status: Active Protocol: Document 03/01/19 12:58 SAK (Rec: 03/01/19 14:58 SAK [id number]) Hip Goniometric Range of Motion Hip ROM Limitations Hip ROM Limitations Muscle Weakness Comments Requires assist with lifting left LE on and off bed due to edema/weight of leg. States he has a pole at home which he uses for getting in and out of bed. Knee Goniometric Range of Motion Knee shalonda Knee ROM WFL Yes Ankle and Foot Goniometric Range of Motion Ankle and Foot shalonda Ankle/Foot ROM WFL No Testing Position Supine Dorsiflexion with Knee Extended 0 Ankle and Foot ROM Limitations ROM Limitations Soft Tissue Tightness,Muscle Weakness,Swelling PT-OP-N Lymphedema Start: 03/01/19 12:57 Freq: Status: Active Protocol: Document 03/01/19 12:58 SAK (Rec: 03/01/19 14:58 SAK [id number]) Lymphedema Measurements Lower Extremity Circumference Measurements Right Affected MT Heads 26.7 cm Medial Malleolus 37.1 cm 10 cm From Medial Malleolus 47.8 cm 20 cm From Medial Malleolus 58.4 cm 30 cm From Medial Malleolus 53.9 cm Left Affected MT Heads 26 cm Medial Malleolus 37.6 cm 10 cm From Medial Malleolus 63.2 cm 20 cm From Medial Malleolus 71.3 cm 30 cm From Medial Malleolus 63.6 cm Comments Lymphedema Comments knee: 48.2 cm left, 46.5 right PT-OP-Q Treatments Start: 03/01/19 12:57 Freq: Status: Active Protocol: Document 03/22/19 15:20 [facility] (Rec: 03/22/19 15:28 [facility] [id number]) Cardio Equipment Recumbent Stepper (Sci-Fit) Duration (Minutes) 10 Resistance 1 Seat Position 12 Other to facilitate lymphatic flow after Dermagrip and foot Circ Aids applied Lymphedema Treatment Manual Lymphatic Drainage Location right LE Duration 30 min Comments including skin care with Cetaphil lotion Lymphedema Wrapping Body Location shalonda LE's Materials Dermagrip ankles to knees ( size H right, J left), Artiflex and comprilan toes to knee Patient Education Sequential Lymphedema Exercises reviewed need for 2x/day PT-OP-R Modalities Start: 03/01/19 12:57 Freq: Status: Active Protocol: Document 03/22/19 15:20 [facility] (Rec: 03/22/19 15:28 [facility] [id number]) Compression Pump Treatment Treatment Location left LE Pressure Amount (mmHg) (mmHG) 40 Inflation Time (Seconds) 30 Deflation Time (Seconds) 10 Treatment Duration (minutes) 30 Treatment Tolerance Good Treatment Comments Sequential pneumatic pump PT-OP-T Assessment and Plan Start: 03/01/19 12:57 Freq: Status: Active Protocol: Document 03/22/19 15:20 [facility] (Rec: 03/22/19 15:28 [facility] [id number]) Physical Therapy Assessment Goals 4 Impairment Patient requires mod assistance with lifting left LE on and off the bed Short Term Goal (STG) Patient able to move left LE on and off the bed with min assist STG Duration 04/05/19 [facility] Goal (LTG) Patient able to lift his left LE in and out of bed without physical assistance LTG Duration 06/01/18 3 Impairment decreased bilateral ankle ROM Short Term Goal (STG) patient to be independent and compliant in HEP to include sequential lymphedema exercises (which include ankle ROM) STG Duration 03/15/19 [facility] Goal (LTG) Patient to demonstrate bilateral ankle ROM WNL for purposes of functional mobility within the home and community LTG Duration 06/01/18 2 Impairment decreased activity tolerance; patient requires rest after amb 50' Short Term Goal (STG) Patient able to ambulate with FWW for 150' before needing a rest STG Duration 04/05/19 [facility] Goal (LTG) Patient able to ambulate at least 300' without excessivre fatigue or need for a rest to help him return to functional community ambulation LTG Duration 06/01/18 1 Impairment bilateral LE lymphedema left greater than right Digital Marketing Assistant Goal (LTG) Decrease bilateral LE lymphedema to stable level (no increase or decrease greater than 1 cm over the course of 1 wk) and patient to be fit with proper fitting compression wraps. Consider home lymphedema pump. LTG Duration 06/01/18 Assessment Summary Assessment Due to increase in edema in feet used Artiflex and Comprilan over Dermagrip. Circumference of lower legs decreased and skin integrity improved; dryness present but decreased, and less red. Physical Therapy Plan Frequency and Duration Frequency of Treatment 2-3x/wk Duration of Treatment 12 wks Plan of Care Start Date 03/01/19 Plan of Care End Date 06/01/18 Therapeutic Interventions Therapeutic Interventions Home Exercise Program, Lymphedema Management,Manual Therapy,Patient/Caregiver Education,Self-Care/Home Management,Therapeutic Activities,Therapeutic Exercises Modalities Vasopneumatic Devices Next Visit Focus/Plan Next Note Type Treatment Note Next Visit Plan Continue lymphedema management , feel will need to continue Artiflex and Comprilan for best compression but having patient wear Dermagrip under in case wraps come off in between PT sessions.
--- NOTE | 2019-04-05 10:55 | PT.OPDS ---
Current Diagnoses Lymphedema, not elsewhere classified (03/22/19) Scar conditions and fibrosis of skin (03/22/19) Weakness (03/22/19) Localized edema (03/22/19) Visit Care Team Role Provider Type Angella Rondon MD Primary Care Provider Physician Specialty: Family Practice Address: [address] [place] [address], [place], [address] Email: [email or web address] Kaiser MD Attending Provider Physician Specialty: [facility] Practice Address: [address] [place] [address], [id number] Email: Visit Number Visit Number 5 Discharge Summary PT-OP-B Current Condition Start: 03/01/19 12:57 Freq: Status: Active Protocol: Document 03/01/19 12:58 SAK (Rec: 03/01/19 13:16 SAK [id number]) Current Condition History of Current Condition Onset Date 6 wks Current Complaints worsening lymphedema History of Current Condition Lymphedema for at least 5 years following cellulitis bilateral LE's left greater than right. Was improving with Home Health PT but was discharged and then had long gap in PT due to scheduling difficulty with outpatient PT. Hasn't been able to have Circ-Aid wraps on for about 1 month due to lost STEPHAN coverage in addition to being discharged from Home Health PT . Patient unable to don Circ Aids, but is unable to doff. Unable to use above knee wraps; states they always just slide down. States he hasn't used a lymphedema pump in the past. Patient reports back fracture 1 year ago L4-5, has used a walker or w/c since, and reports significant decreased in activity level. Further decrease in activity tolerance with recent increase in lymphedema due to weight of legs. Future Testing and Treatments Planned Sees Dr. Rondon tomorrow. Treatment Goals Patient/Caregiver Goals Decrease edema and improve his general strength and activity tolerance. Prior Functional Status Baseline Function- ADL's Modified Independent Baseline Function- Mobility Modified Independent Baseline Function- Gait 200' with use of FWW Current Functional Impairments (Reported) Functional Limitations- ADL's slow, more difficult Functional Limitations- Mobility/Gait Poor tolerance for gait and mobility due to weight of legs as well as LBP Functional Limitations- Work/School unable to work Functional Limitations- Recreation/ no significant Hobbies Personal Factors Other Personal Factors That May Effect patient is obese Therapy/Recovery PT-OP-C Subjective Start: 03/01/19 12:57 Freq: Status: Active Protocol: Document 03/22/19 15:20 SAK (Rec: 03/22/19 15:28 SAK [id number]) OP-PT Subjective Patient Comments Patient Comments Patient arrives at PT following wound care appointment. Reports his legs are almost healed, probably one more wound care visit if everything goes ok. States feet more swollen today. PT-OP-J Posture/Palpation/Skin Start: 03/01/19 12:57 Freq: Status: Active Protocol: Document 03/01/19 12:58 SAK (Rec: 03/01/19 14:58 SAK [id number]) Palpation Assessment Location bilateral lower legs and feet Palpation Findings Edema,Soft Tissue Tightness Palpation Details fibrosis in reddened areas of bilateral lower legs ( see photos in chart) Skin Assessment Other Assessments Skin Assessment Comments weaping clear fluid from 2 small open areas right anterior carvajal, 3 small open areas lateral left lower leg. Recommended wound care referral; patient to see PCP tomorrow and will request plus PT to fax. PT-OP-K Range of Motion Start: 03/01/19 12:57 Freq: Status: Active Protocol: Document 03/01/19 12:58 SAK (Rec: 03/01/19 14:58 [facility] [id number]) Hip Goniometric Range of Motion Hip ROM Limitations Hip ROM Limitations Muscle Weakness Comments Requires assist with lifting left LE on and off bed due to edema/weight of leg. States he has a pole at home which he uses for getting in and out of bed. Knee Goniometric Range of Motion Knee shalonda Knee ROM WFL Yes Ankle and Foot Goniometric Range of Motion Ankle and Foot shalonda Ankle/Foot ROM WFL No Testing Position Supine Dorsiflexion with Knee Extended 0 Ankle and Foot ROM Limitations ROM Limitations Soft Tissue Tightness,Muscle Weakness,Swelling PT-OP-N Lymphedema Start: 03/01/19 12:57 Freq: Status: Active Protocol: Document 03/01/19 12:58 SAK (Rec: 03/01/19 14:58 SAK [id number]) Lymphedema Measurements Lower Extremity Circumference Measurements Right Affected MT Heads 26.7 cm Medial Malleolus 37.1 cm 10 cm From Medial Malleolus 47.8 cm 20 cm From Medial Malleolus 58.4 cm 30 cm From Medial Malleolus 53.9 cm Left Affected MT Heads 26 cm Medial Malleolus 37.6 cm 10 cm From Medial Malleolus 63.2 cm 20 cm From Medial Malleolus 71.3 cm 30 cm From Medial Malleolus 63.6 cm Comments Lymphedema Comments knee: 48.2 cm left, 46.5 right PT-OP-T Assessment and Plan Start: 03/01/19 12:57 Freq: Status: Active Protocol: Document 03/30/19 10:54 GUERO (Rec: 04/05/19 10:55 [email or web address] [id number]) Physical Therapy Plan Discharge Physical Therapy Discharge Reasons Change in Medical Status
== END 2019-03-22 15:30 ==
LOC: PHYS 14:30
PROVIDERS: PCP Family Medicine; Visit Provider Family Medicine
DX: I89.0 Lymphedema, not elsewhere classified (principal); L90.5 Scar conditions and fibrosis of skin; R60.0 Localized edema; R53.1 Weakness
CPT/HCPCS: 97016; 97110; 97140; 97163

== ENCOUNTER 2019-03-27 11:34 | Inpatient (IN) | payer MEDICARE, MEDICAID, SELFPAY ==
[2017-11-13 16:45] VITALS: BMI 57.9
[2019-03-27] VITALS (9 sets, daily range): BP systolic 143–159; BP diastolic 55–91; PULSE 66–93; RESP 16–24; TEMP 36.6–37.1; O2SAT 90–97; BMI 57.4
--- NOTE | 2019-03-27 | DI.CT.S_ITS ---
PROCEDURE: CT ANGIO CHEST PE PROTOCOL INDICATIONS: pumonary edema non cardiacc TECHNIQUE: After the administration of intravenous contrast, 2 mm thick sections acquired from the pulmonary apices to the posterior costophrenic angles. 3-dimensional maximum intensity projection (MIP) coronal and sagittal reformats were then acquired through the thorax. For radiation dose reduction, the following was used: automated exposure control, adjustment of mA and/or kV according to patient size. COMPARISON: None. FINDINGS: Image quality: Excellent. Pulmonary arteries: Pulmonary arteries are normal in size, and demonstrate no intraluminal filling defects to suggest central pulmonary embolism. Lungs and pleura: Scattered subsegmental atelectasis and/or scarring. No focal consolidation. Coronary artery calcifications are present. Prominent pericardial fat pad. No pleural effusions or pneumothorax. There is mild intraluminal debris within the airways, with nonspecific bronchial wall thickening Mosaic lung attenuation suggesting small airways disease/air trapping. Technically, early pulmonary edema versus atypical infection in the differential Mediastinum: Heart size is normal, without pericardial effusion. Nonspecific enlarged right hilar lymph node. Thoracic aorta is normal in caliber and enhancement. Esophagus is normal in caliber, without hiatal hernia. Bones and chest wall: No suspicious bony lesions. Subacute versus chronic left rib fracture image 240/5. Thyroid gland is atrophic. No axillary or supraclavicular adenopathy. Abdomen: Mildly microlobulated contour of the liver. Incidental colonic diverticulosis. IMPRESSION: No evidence of pulmonary embolism. Scattered atelectasis and scarring without focal consolidation. Diffuse ground glass opacities suggesting small airways disease/air trapping, however early edema or atypical infection in the differential. Coronary artery disease Nonspecific enlarged right hilar lymph node, technically age-indeterminate. Findings concordant with the preliminary study interpretation provided at the time of the exam. Dictated by: Javan Zhao M.D. on 03/28/2019 at 8:07 Approved by: Javan Zhao M.D. on 03/28/2019 at 8:15
--- NOTE | 2019-03-27 11:47 | DI.RAD.S_ITS ---
PROCEDURE: XR CHEST 1V INDICATIONS: sob TECHNIQUE: One view of the chest was acquired. COMPARISON: [facility], , CHEST 2 VIEW, 03/09/2009, 12:02. FINDINGS: Surgical changes and devices: None. Lungs and pleura: There are low lung volumes. Evaluation is limited by lordotic projection. There is increased pulmonary vascular prominence consistent with pulmonary edema. No pleural effusions or pneumothorax. Mediastinum: Mediastinal contours appear prominent likely due to technique and low lung volumes. Heart size appears enlarged. Bones and chest wall: No suspicious bony lesions. Overlying soft tissues appear unremarkable. IMPRESSION: 1. Pulmonary edema with cardiomegaly suggestive of congestive heart failure. Dictated by: Reagan Lima M.D. on 03/27/2019 at 11:44 Approved by: Reagan Lima M.D. on 03/27/2019 at 11:45
--- NOTE | 2019-03-27 11:49 | ED.SOB ---
HPI - SOB/Dyspnea <Angelia Henriquez, ENT PHYSICIAN-BC - Last Filed: 03/27/19 18:41> General Chief Complaint: Shortness of Breath/Dyspnea Stated Complaint: SOB, weakness Time Seen by Provider: 03/27/19 11:35 Source: patient and EMS Mode of arrival: EMS Limitations: no limitations History of Present Illness HPI Narrative: The patient is a 78-year-old male former smoker with history of edema, wounds on bilateral legs, is morbidly obese who presents with a chief complaint of progressive weakness over the past few days to weeks, shortness of breath that is worsening over the past few weeks. He states he feels like he cannot catch his breath, worse with exertion and activity. He denies any chest pain. He presents to us by EMS, who was called to his house for a lift assist twice so far today. They stated that he is no longer able to stand up by himself so, and convinced him to come to the emergency department. He denies any falls. EMS denies any falls. Denies hitting his head, new neck or back pain. Does not take any blood thinners. Does have a history of chronic back pain. Denies any nausea vomiting diarrhea abdominal pain. He does have chronic wounds bilateral lower extremities with wraps on both legs. He states he sees Dr. Olsen for wound care. Related Data Home Medications Medication Instructions Recorded Confirmed aspirin 81 mg PO DAILY #0 01/07/11 03/02/19 Previous Rx's Medication Instructions Recorded Disabled Parking Permit See Rx Instructions .ROUTE 10/22/17 .COMPLEX #1 each naproxen sodium 220 mg capsule 220 mg PO BID PRN #60 cap 01/04/18 atenolol 25 mg tablet 75 mg PO DAILY #270 tab 05/31/18 lisinopril [Prinivil] 20 mg PO QDAY #90 tab 07/05/18 furosemide 40 mg tablet 80 mg PO QDAY #60 tab 11/02/18 potassium chloride 10 mEq 20 meq PO QDAY #60 cap 11/02/18 capsule,extended release omeprazole 40 mg capsule,delayed 40 mg PO QAM #90 cap 11/17/18 release escitalopram oxalate 20 mg tablet See Rx Instructions .ROUTE 01/11/19 .COMPLEX #30 tablet ketoconazole 2 % shampoo 1 applictn TOP 2XW #120 ml 01/11/19 tramadol 50 mg tablet See Rx Instructions .ROUTE 02/11/19 .COMPLEX #360 tablet atorvastatin 20 mg tablet 20 mg PO DAILY #90 tab 03/02/19 levothyroxine 175 mcg tablet See Rx Instructions .ROUTE 03/02/19 .COMPLEX #90 tab methocarbamol 750 mg tablet See Rx Instructions .ROUTE 03/09/19 .COMPLEX #90 tab Allergies Allergy/AdvReac Type Severity Reaction Status Date / Time codeine [CODEINE] Allergy Unknown unknown Verified 03/02/19 11:51 hydromorphone [From Dilaudid] AdvReac Intermediate Hallucinati Verified 03/02/19 11:51 ng Review of Systems <LEIGHANN Llamas - Last Filed: 03/27/19 18:41> Review of Systems Narrative: GENERAL: Denies chills, fatigue, malaise, fever, sweats. HEENT: Denies sinus pain, ear pain, sore throat, difficulty swallowing, dizziness. RESPIRATORY: See HPI CARDIOVASCULAR: See HPI GASTROINTESTINAL: Denies nausea, vomiting, abdominal pain, diarrhea, constipation, melena. : Denies dysuria, frequency, incontinence, hematuria, urinary retention. MUSCULOSKELETAL: denies weakness, joint pain, or bony pain SKIN: Denies rash, skin lesions, or other NEUROLOGIC: Denies weakness, headache, numbness, change in speech, confusion, seizures, incoordination. PSYCHIATRIC: No concerning psychosocial issues. 12 point review of systems is negative except for those stated above Patient History <LEIGHANN Llamas - Last Filed: 03/27/19 18:41> Medical History (Updated 03/27/19 @ 17:23 by LEIGHANN Llamas) Hyperlipidemia (Acute) Hypertension (Chronic) Hypothyroidism (Chronic) Lymphedema (Acute) Morbid obesity (Chronic) Urinary incontinence (Chronic 2014) Surgical History (Updated 03/27/19 @ 17:18 by Ada Cardenas DO) History of cholecystectomy (Acute) Social History household members: none Smoking Status: Former smoker alcohol intake: current Smoking Status: Former smoker alcohol intake frequency: holidays/special occasions only Substance Use Type: does not use Exam <LEIGHANN Llamas - Last Filed: 03/27/19 18:41> Narrative Exam Narrative: GENERAL: Morbidly obese male lying on stretcher, appears chronically ill HEAD: Atraumatic. Normocephalic. No temporal or scalp tenderness. EYES: Pupils equal round and reactive. Extraocular motions intact. No scleral icterus. No injection or drainage. ENT: Nose without bleeding, purulent drainage or septal hematoma. Throat without erythema, tonsillar hypertrophy or exudate. Uvula midline. Airway patent. NECK: Trachea midline. No JVD or lymphadenopathy. Supple, nontender, no meningeal signs. CARDIOVASCULAR: Regular rate and rhythm RESPIRATORY: Decreased bilaterally to auscultation. Breath sounds equal bilaterally. Diffuse expiratory wheeze to auscultation. GASTROINTESTINAL: Abdomen soft, obese non-tender, nondistended. No hepato-splenomegaly, or palpable masses. No guarding. EXTREMITIES: Diffuse gross edema, +4 edema bilateral lower extremities. Positive pedal pulses. Wraps intact bilateral lower extremities. BACK: Nontender without deformity or crepitance. No flank tenderness. NEURO: AOx3. Clear speech. Using all extremities equally. SKIN: No rash or erythema on visible skin. Wraps in place bilateral lower extremities. Initial Vital Signs Initial Vital Signs: Vital Signs Pulse Rate 93 H 03/27/19 11:45 Respiratory Rate 22 03/27/19 11:45 Pulse Oximetry 93 03/27/19 11:45 <Sandhya Pope MD - Last Filed: 03/27/19 18:42> Initial Vital Signs Initial Vital Signs: Vital Signs Pulse Rate 93 H 03/27/19 11:45 Respiratory Rate 22 03/27/19 11:45 Pulse Oximetry 93 03/27/19 11:45 Course <MEENA Llamas- - Last Filed: 03/27/19 18:41> Orders Ordered: ED Orders 03/27/19 11:47 XR chest 1V Stat EKG-12 Lead Stat 03/27/19 13:40 RT Consult Eval and Treat NOW 03/27/19 14:55 B Type Natriuretic Peptide Stat Complete Blood Count AUTO DIFF Stat Comprehensive Metabolic Panel Stat Lactate (Lactic Acid) Stat Lipase Stat Partial Thromboplastin Time Stat Procalcitonin Stat Prothrombin Time INR Stat Troponin & CK Cardiac Panel Stat Acetaminophen (Tylenol) 650 mg PO Q6HR PRN PRN Reason: Fever/Mild Pain (1-3) Al Hydrox/Mg Hydrox/Simethicone (Maalox Plus) 30 ml PO Q6HR PRN PRN Reason: Dyspepsia Aspirin (Aspirin Ec) 81 mg PO DAILY [facility] Atenolol (Tenormin) 75 mg PO DAILY [facility] Last Admin: 03/27/19 18:27 Dose: 75 mg Documented by: DARVIN Atorvastatin Calcium (Lipitor) 20 mg PO BEDTIME [facility] Calcium Carbonate (Tums) 1,000 mg PO Q4HR PRN PRN Reason: Dyspepsia Escitalopram Oxalate (Lexapro) 20 mg PO DAILY [facility] Levothyroxine Sodium (Synthroid) 100 mcg PO 0600 [facility] Levothyroxine Sodium (Synthroid) 75 mcg PO 0600 [facility] Lisinopril (Zestril) 20 mg PO DAILY [facility] Naloxone HCl (Narcan) 0.2 mg IV Q2MIN PRN PRN Reason: Opiate Reversal Naproxen (Naprosyn) 250 mg PO BID PRN PRN Reason: pain Pantoprazole Sodium (Protonix) 40 mg PO 0600 [facility] Potassium Chloride (Klor-Con M10) 20 meq PO DAILY [facility] Last Admin: 03/27/19 18:27 Dose: 20 meq Documented by: DARVIN Tramadol HCl (Ultram) 50 mg PO Q6H [facility] Discontinued Medications Enoxaparin Sodium (Lovenox) 150 mg SUBCUT NOW ONE Stop: 03/27/19 17:00 Last Admin: 03/27/19 18:27 Dose: 150 mg Documented by: DARVIN Furosemide (Lasix) 80 mg IV NOW ONE Stop: 03/27/19 16:16 Last Admin: 03/27/19 17:02 Dose: 80 mg Documented by: MELCHOR Vital Signs Vital signs: Vital Signs - 8 hr 03/27/19 11:45 03/27/19 11:52 03/27/19 13:19 Temperature 98.8 F Pulse Rate 93 H 86 Respiratory Rate 22 24 Blood Pressure [Left Wrist] 159/55 H 158/91 H Pulse Oximetry 93 97 03/27/19 15:35 Temperature Pulse Rate 84 Respiratory Rate 18 Blood Pressure [Left Wrist] 154/80 H Pulse Oximetry 96 <Sandhya Pope MD - Last Filed: 03/27/19 18:42> Orders Ordered: ED Orders 03/27/19 11:47 XR chest 1V Stat EKG-12 Lead Stat 03/27/19 13:40 RT Consult Eval and Treat NOW 03/27/19 14:55 B Type Natriuretic Peptide Stat Complete Blood Count AUTO DIFF Stat Comprehensive Metabolic Panel Stat Lactate (Lactic Acid) Stat Lipase Stat Partial Thromboplastin Time Stat Procalcitonin Stat Prothrombin Time INR Stat Troponin & CK Cardiac Panel Stat Acetaminophen (Tylenol) 650 mg PO Q6HR PRN PRN Reason: Fever/Mild Pain (1-3) Al Hydrox/Mg Hydrox/Simethicone (Maalox Plus) 30 ml PO Q6HR PRN PRN Reason: Dyspepsia Aspirin (Aspirin Ec) 81 mg PO DAILY [facility] Atenolol (Tenormin) 75 mg PO DAILY [facility] Last Admin: 03/27/19 18:27 Dose: 75 mg Documented by: DARVIN Atorvastatin Calcium (Lipitor) 20 mg PO BEDTIME [facility] Calcium Carbonate (Tums) 1,000 mg PO Q4HR PRN PRN Reason: Dyspepsia Escitalopram Oxalate (Lexapro) 20 mg PO DAILY [facility] Levothyroxine Sodium (Synthroid) 100 mcg PO 0600 [facility] Levothyroxine Sodium (Synthroid) 75 mcg PO 0600 [facility] Lisinopril (Zestril) 20 mg PO DAILY [facility] Naloxone HCl (Narcan) 0.2 mg IV Q2MIN PRN PRN Reason: Opiate Reversal Naproxen (Naprosyn) 250 mg PO BID PRN PRN Reason: pain Pantoprazole Sodium (Protonix) 40 mg PO 0600 [facility] Potassium Chloride (Klor-Con M10) 20 meq PO DAILY [facility] Last Admin: 03/27/19 18:27 Dose: 20 meq Documented by: DARVIN Tramadol HCl (Ultram) 50 mg PO Q6H [facility] Discontinued Medications Enoxaparin Sodium (Lovenox) 150 mg SUBCUT NOW ONE Stop: 03/27/19 17:00 Last Admin: 03/27/19 18:27 Dose: 150 mg Documented by: DARVIN Furosemide (Lasix) 80 mg IV NOW ONE Stop: 03/27/19 16:16 Last Admin: 03/27/19 17:02 Dose: 80 mg Documented by: MELCHOR Vital Signs Vital signs: Vital Signs - 8 hr 03/27/19 11:45 03/27/19 11:52 03/27/19 13:19 Temperature 98.8 F Pulse Rate 93 H 86 Respiratory Rate 22 24 Blood Pressure [Left Wrist] 159/55 H 158/91 H Pulse Oximetry 93 97 03/27/19 15:35 Temperature Pulse Rate 84 Respiratory Rate 18 Blood Pressure [Left Wrist] 154/80 H Pulse Oximetry 96 MDM - SOB/Dyspnea <Angelia Henriquez, ENT PHYSICIAN-BC - Last Filed: 03/27/19 18:41> Lab Data Result diagrams: 03/27/19 14:55 03/27/19 14:55 Labs: Lab Results 03/27/19 03/27/19 03/27/19 Range/Units 14:55 14:55 14:55 WBC 13.2 H (4.5-11.0) X10^3/uL RBC 4.11 L (4.5-5.9) X10^6/uL Hgb 13.3 L (13.5-17.5) g/dL Hct 39.3 L (41-53) % MCV 95.6 (80-100) fL MCH 32.2 (26-34) PG MCHC 33.7 (30-36) % RDW 14.6 (11.6-14.8) % Plt Count 274 (150-400) X10^3/uL Neut % (Auto) 68.4 (50-75) % Lymph % (Auto) 17.5 L (25-40) % [place] % (Auto) 10.0 (3-14) % Eos % (Auto) 3.3 (2-4) % Baso % (Auto) 0.8 (0-2) % Neut # (Auto) 9000 H (2281-5975) /uL Lymph # (Auto) 2300 (0121-9373) /uL [place] # (Auto) 1300 H (0-900) /uL Eos # (Auto) 400 (0-450) /uL Baso # (Auto) 100 (0-100) /uL PT 12.5 (10.1-12.7) SECONDS INR 1.1 (0.9-1.3) APTT 28 (26.4-36.2) SECONDS D-Dimer (<230) ng/mL Sodium 138 (137-145) mmol/L Potassium 4.6 (3.4-5.1) mmol/L Chloride 102 (98-107) mmol/L Carbon Dioxide 29 (22-32) mmol/L BUN 17 (9-20) mg/dL Creatinine 0.60 L (0.66-1.25) mg/dL Estimated GFR > 60.0 (>60) mL/min BUN/Creatinine Ratio 28.3 H (6-22) Glucose 118 H (80-110) mg/dL Lactate (0.7-2.1) mmol/L Calcium 9.1 (8.4-10.2) mg/dL Total Bilirubin 0.8 (0.2-1.3) mg/dL AST 33 (17-59) IU/L ALT 15 (<50) IU/L Alkaline Phosphatase 75 (38-126) U/L Total Creatine Kinase 72 (55-170) U/L CK-MB (CK-2) TNP CK-MB (CK-2) Rel Index TNP Troponin I 0.016 (0.01-0.034) ng/mL B-Natriuretic Peptide < 100 (<100) Total Protein 7.3 (6.3-8.2) g/dL Albumin 3.8 (3.5-5.0) g/dL Globulin 3.5 (1.7-4.1) g/dL Albumin/Globulin Ratio 1.1 (1.0-2.8) Lipase 27 (23-300) U/L Procalcitonin (<0.5) ng/mL 03/27/19 03/27/19 03/27/19 Range/Units 14:55 14:55 14:55 WBC (4.5-11.0) X10^3/uL RBC (4.5-5.9) X10^6/uL Hgb (13.5-17.5) g/dL Hct (41-53) % MCV (80-100) fL MCH (26-34) PG MCHC (30-36) % RDW (11.6-14.8) % Plt Count (150-400) X10^3/uL Neut % (Auto) (50-75) % Lymph % (Auto) (25-40) % [place] % (Auto) (3-14) % Eos % (Auto) (2-4) % Baso % (Auto) (0-2) % Neut # (Auto) (8501-4084) /uL Lymph # (Auto) (7520-0704) /uL [place] # (Auto) (0-900) /uL Eos # (Auto) (0-450) /uL Baso # (Auto) (0-100) /uL PT (10.1-12.7) SECONDS INR (0.9-1.3) APTT (26.4-36.2) SECONDS D-Dimer 231 H (<230) ng/mL Sodium (137-145) mmol/L Potassium (3.4-5.1) mmol/L Chloride (98-107) mmol/L Carbon Dioxide (22-32) mmol/L BUN (9-20) mg/dL Creatinine (0.66-1.25) mg/dL Estimated GFR (>60) mL/min BUN/Creatinine Ratio (6-22) Glucose (80-110) mg/dL Lactate 0.9 (0.7-2.1) mmol/L Calcium (8.4-10.2) mg/dL Total Bilirubin (0.2-1.3) mg/dL AST (17-59) IU/L ALT (<50) IU/L Alkaline Phosphatase (38-126) U/L Total Creatine Kinase (55-170) U/L CK-MB (CK-2) CK-MB (CK-2) Rel Index Troponin I (0.01-0.034) ng/mL B-Natriuretic Peptide (<100) Total Protein (6.3-8.2) g/dL Albumin (3.5-5.0) g/dL Globulin (1.7-4.1) g/dL Albumin/Globulin Ratio (1.0-2.8) Lipase (23-300) U/L Procalcitonin < 0.05 (<0.5) ng/mL Urine Dip Bedside Urine Glucose Negative Bedside Urine Bilirubin - Negative Bedside Urine Ketone +/- 5 Urine Specific [place] 1.015 Bedside Urine Occult Blood - Negative Bedside Urine pH 6.0 Bedside Urine Protein + 30 Bedside Urine Urobilinogen +/- 1mg Bedside Urine Nitrite - Negative Bedside Urine Leukocytes - Negative Esterase Imaging Data Chest x-ray: Radiologist's impression: Adiel Iniguez 78 M [address] [address] XRay Report Signed Patient: Adiel Iniguez BMR#: [id number] : 1940Acct:[id number] Age/Sex: 78 / MDate of Service: 03/27/19 Loc: ED Accession Number: [id number] Procedure: XR chest 1V Ordering Provider: Angelia Henriquez PROCEDURE: XR CHEST 1V INDICATIONS: sob TECHNIQUE: One view of the chest was acquired. COMPARISON: [facility], CHEST 2 VIEW, 03/09/2009, 12:02. FINDINGS: Surgical changes and devices: None. Lungs and pleura: There are low lung volumes. Evaluation is limited by lordotic projection. There is increased pulmonary vascular prominence consistent with pulmonary edema. No pleural effusions or pneumothorax. Mediastinum: Mediastinal contours appear prominent likely due to technique and low lung volumes. Heart size appears enlarged. Bones and chest wall: No suspicious bony lesions. Overlying soft tissues appear unremarkable. IMPRESSION: 1. Pulmonary edema with cardiomegaly suggestive of congestive heart failure. Dictated by: Reagan Lima M.D. on 03/27/2019 at 11:44 Approved by: Reagan Lima M.D. on 03/27/2019 at 11:45 ECG Data Attestation: I personally reviewed and interpreted this ECG as follows: Interpretation: Sinus rhythm. Ventricular rate 84. No ST elevation depression noted. No ectopy noted. P.r. interval 177. QRS duration 77. Viewed by Dr Niko MARTÍNEZ Narrative Medical decision making narrative: The patient is a 78-year-old male who presents with a chief complaint of generalized weakness and progressive shortness of breath with exertion over the past few weeks. He was brought in by EMS after several called for lift assist at his house. The patient has very difficult venous access, had 3 different nurses attempt IVs including ultrasound trained nurses twice. Eventually obtained IV access using a 25 gauge in his upper arm. Lab work was subsequently delayed. On exam, patient is very edematous. Chest x-ray is concerning for pulmonary edema and CHF. BNP is negative, troponin is below threshold. Patient's electrolytes are within normal limits. EKG shows no acute findings. The patient is very deconditioned on exam, unable to ambulate by himself independently. He does live at home at this time. However given his progressive worsening shortness of breath with exertion as well as inability to care for self and ambulate safely I'm concerned about discharging this patient home. I spoke with Dr. Cardenas who is on-call for the patient's primary care provider regarding admission. Given that the patient has very difficult vascular status, required several nurses in several hours to obtain IV access, the IV obtained was not able be used for a CT to evaluate for PE. The patient's D-dimer is 231. Thus I coordinated with Dr. Cardenas to have the PICC team come from [place], that the patient could be moved to the floor, and that the PICC team could secure access while the patient is on the floor. If he needs a CT to evaluate for PE, she will further work that up. Patient states understanding of admission he and his family are comfortable with the process and have no questions or concerns. <Sandhya Pope MD - Last Filed: 03/27/19 18:42> Lab Data Labs: Lab Results 03/27/19 03/27/19 03/27/19 Range/Units 14:55 14:55 14:55 WBC 13.2 H (4.5-11.0) X10^3/uL RBC 4.11 L (4.5-5.9) X10^6/uL Hgb 13.3 L (13.5-17.5) g/dL Hct 39.3 L (41-53) % MCV 95.6 (80-100) fL MCH 32.2 (26-34) PG MCHC 33.7 (30-36) % RDW 14.6 (11.6-14.8) % Plt Count 274 (150-400) X10^3/uL Neut % (Auto) 68.4 (50-75) % Lymph % (Auto) 17.5 L (25-40) % [place] % (Auto) 10.0 (3-14) % Eos % (Auto) 3.3 (2-4) % Baso % (Auto) 0.8 (0-2) % Neut # (Auto) 9000 H (7461-0639) /uL Lymph # (Auto) 2300 (4257-9804) /uL [place] # (Auto) 1300 H (0-900) /uL Eos # (Auto) 400 (0-450) /uL Baso # (Auto) 100 (0-100) /uL PT 12.5 (10.1-12.7) SECONDS INR 1.1 (0.9-1.3) APTT 28 (26.4-36.2) SECONDS D-Dimer (<230) ng/mL Sodium 138 (137-145) mmol/L Potassium 4.6 (3.4-5.1) mmol/L Chloride 102 (98-107) mmol/L Carbon Dioxide 29 (22-32) mmol/L BUN 17 (9-20) mg/dL Creatinine 0.60 L (0.66-1.25) mg/dL Estimated GFR > 60.0 (>60) mL/min BUN/Creatinine Ratio 28.3 H (6-22) Glucose 118 H (80-110) mg/dL Lactate (0.7-2.1) mmol/L Calcium 9.1 (8.4-10.2) mg/dL Total Bilirubin 0.8 (0.2-1.3) mg/dL AST 33 (17-59) IU/L ALT 15 (<50) IU/L Alkaline Phosphatase 75 (38-126) U/L Total Creatine Kinase 72 (55-170) U/L CK-MB (CK-2) TNP CK-MB (CK-2) Rel Index TNP Troponin I 0.016 (0.01-0.034) ng/mL B-Natriuretic Peptide < 100 (<100) Total Protein 7.3 (6.3-8.2) g/dL Albumin 3.8 (3.5-5.0) g/dL Globulin 3.5 (1.7-4.1) g/dL Albumin/Globulin Ratio 1.1 (1.0-2.8) Lipase 27 (23-300) U/L Procalcitonin (<0.5) ng/mL 03/27/19 03/27/19 03/27/19 Range/Units 14:55 14:55 14:55 WBC (4.5-11.0) X10^3/uL RBC (4.5-5.9) X10^6/uL Hgb (13.5-17.5) g/dL Hct (41-53) % MCV (80-100) fL MCH (26-34) PG MCHC (30-36) % RDW (11.6-14.8) % Plt Count (150-400) X10^3/uL Neut % (Auto) (50-75) % Lymph % (Auto) (25-40) % [place] % (Auto) (3-14) % Eos % (Auto) (2-4) % Baso % (Auto) (0-2) % Neut # (Auto) (1815-7736) /uL Lymph # (Auto) (5908-5601) /uL [place] # (Auto) (0-900) /uL Eos # (Auto) (0-450) /uL Baso # (Auto) (0-100) /uL PT (10.1-12.7) SECONDS INR (0.9-1.3) APTT (26.4-36.2) SECONDS D-Dimer 231 H (<230) ng/mL Sodium (137-145) mmol/L Potassium (3.4-5.1) mmol/L Chloride (98-107) mmol/L Carbon Dioxide (22-32) mmol/L BUN (9-20) mg/dL Creatinine (0.66-1.25) mg/dL Estimated GFR (>60) mL/min BUN/Creatinine Ratio (6-22) Glucose (80-110) mg/dL Lactate 0.9 (0.7-2.1) mmol/L Calcium (8.4-10.2) mg/dL Total Bilirubin (0.2-1.3) mg/dL AST (17-59) IU/L ALT (<50) IU/L Alkaline Phosphatase (38-126) U/L Total Creatine Kinase (55-170) U/L CK-MB (CK-2) CK-MB (CK-2) Rel Index Troponin I (0.01-0.034) ng/mL B-Natriuretic Peptide (<100) Total Protein (6.3-8.2) g/dL Albumin (3.5-5.0) g/dL Globulin (1.7-4.1) g/dL Albumin/Globulin Ratio (1.0-2.8) Lipase (23-300) U/L Procalcitonin < 0.05 (<0.5) ng/mL Urine Dip Bedside Urine Glucose Negative Bedside Urine Bilirubin - Negative Bedside Urine Ketone +/- 5 Urine Specific [place] 1.015 Bedside Urine Occult Blood - Negative Bedside Urine pH 6.0 Bedside Urine Protein + 30 Bedside Urine Urobilinogen +/- 1mg Bedside Urine Nitrite - Negative Bedside Urine Leukocytes - Negative Esterase Discharge Plan Departure Patient Disposition: Admitted As Inpatient Clinical Impression: Breath shortness, Weakness, Short of breath on exertion Discharge Date/Time: 03/27/19 17:09 Admit Date/Time: 03/27/19 16:18 Admit Provider: Ada Cardenas
[2019-03-27 15:16] LABS: INR 1.1 (0.9-1.3); Prothrombin Time 12.5 SECONDS (10.1-12.7)
[2019-03-27 15:18] LABS: PTT Partial Thromboplastin Tim 28 SECONDS (26.4-36.2)
[2019-03-27 15:19] LABS: Lactate (Lactic Acid) 0.9 mmol/L (0.7-2.1)
[2019-03-27 15:20] LABS: Alanine Aminotransferase 15 IU/L (<50); Albumin 3.8 g/dL (3.5-5.0); Albumin Globulin Ratio 1.1 (1.0-2.8); Alkaline Phosphatase 75 U/L (38-126); Aspartate Aminotransferase 33 IU/L (17-59); BUN Creatinine Ratio 28.3 (6-22); Bilirubin Total 0.8 mg/dL (0.2-1.3); Blood Urea Nitrogen 17 mg/dL (9-20); Calcium 9.1 mg/dL (8.4-10.2); Carbon Dioxide 29 mmol/L (22-32); Chloride 102 mmol/L (98-107); Creatine Kinase 72 U/L (55-170); Estimated Glomerular Filt Rate > 60.0 mL/min (>60); Globulin 3.5 g/dL (1.7-4.1); Glucose 118 mg/dL (80-110); Lipase 27 U/L (23-300); Sodium 138 mmol/L (137-145); Total Protein 7.3 g/dL (6.3-8.2)
[2019-03-27 15:24] LABS: HEMOLYSIS 51 (0-50); Potassium 4.6 mmol/L (3.4-5.1)
[2019-03-27 15:30] LABS: Troponin I 0.016 ng/mL (0.01-0.034)
[2019-03-27 15:35] LABS: B Type Natriuretic Peptide < 100 (<100)
[2019-03-27 15:46] LABS: Add Manual Diff / Slide Review NO; Basophils Absolute Auto 100 /uL (0-100); Basophils Percent Auto 0.8 % (0-2); Eosinophils Absolute Auto 400 /uL (0-450); Eosinophils Percent Auto 3.3 % (2-4); Hematocrit 39.3 % (41-53); Hemoglobin 13.3 g/dL (13.5-17.5); Lymphocytes Absolute Auto 2300 /uL (1100-4500); Lymphocytes Percent Auto 17.5 % (25-40); Mean Corpuscular HGB Conc 33.7 % (30-36); Mean Corpuscular Hemoglobin 32.2 PG (26-34); Mean Corpuscular Volume 95.6 fL (80-100); Monocytes Absolute Auto 1300 /uL (0-900); Neutrophils Absolute Auto 9000 /uL (1500-7000); Neutrophils Percent Auto 68.4 % (50-75); Platelet Count 274 X10^3/uL (150-400); Procalcitonin < 0.05 ng/mL (<0.5); Red Blood Cell Count 4.11 X10^6/uL (4.5-5.9); Red Cell Distribution Width 14.6 % (11.6-14.8); White Blood Cell Count 13.2 X10^3/uL (4.5-11.0)
--- NOTE | 2019-03-27 16:53 | P.HP_ITS ---
History of Present Illness History of Present Illness Date Patient Seen: 03/27/19 Time Patient Seen: 16:54 Chief complaint: SOB, weakness Narrative: Patient presented to the ED after having to call EMS a third time to help him get up. He was found to have an o2 sat of 86% which improved once back in his chair. He reports that he feels his strength has been diminishing over the past month. He has chronic lower extremity edema, 4+ at baseline. He has been having wound care for his legs and the person who does the wrapping wasn't available last week so his legs have not been re-wrapped for the past week. He denies chest pain, increase in the swelling of his legs, fever, chills, abdominal pain, vomiting. He has loose stools at baseline and uses loperamide on regular basis. He tells me his last bowel movement was yesterday. Patient History Medical History (Updated 03/27/19 @ 17:23 by MEENA Llamas-) Hyperlipidemia (Acute) Hypertension (Chronic) Hypothyroidism (Chronic) Lymphedema (Acute) Morbid obesity (Chronic) Urinary incontinence (Chronic 2013) Surgical History (Updated 03/27/19 @ 17:18 by Ada Cardenas DO) History of cholecystectomy (Acute) Family & Social History Social History: household members none Safety & Behavioral: Feels Safe in Current Yes Environment Tobacco & Substance use: Smoking Status Former smoker alcohol intake current alcohol intake frequency holiday/special occasion Substance Use Type does not use Meds Home Medications and Allergies Home Medications Medication Instructions Recorded Confirmed Type aspirin 81 mg PO DAILY #0 01/07/11 03/27/19 History Disabled Parking Permit See Rx Instructions .ROUTE 10/22/17 03/02/19 Rx .COMPLEX #1 each naproxen sodium 220 mg capsule 220 mg PO BID PRN #60 cap 01/04/18 03/27/19 Rx atenolol 25 mg tablet 75 mg PO DAILY #270 tab 05/31/18 03/27/19 Rx lisinopril [Prinivil] 20 mg PO QDAY #90 tab 07/05/18 03/27/19 Rx furosemide 40 mg tablet 80 mg PO QDAY #60 tab 11/02/18 03/27/19 Rx potassium chloride 10 mEq 20 meq PO QDAY #60 cap 07/23/19 12/15/19 Rx capsule,extended release omeprazole 40 mg capsule,delayed 40 mg PO QAM #90 cap 11/17/18 03/27/19 Rx release escitalopram oxalate 20 mg tablet See Rx Instructions .ROUTE 01/11/19 03/27/19 Rx .COMPLEX #30 tablet ketoconazole 2 % shampoo 1 applictn TOP 2XW #120 ml 01/11/19 03/27/19 Rx tramadol 50 mg tablet See Rx Instructions .ROUTE 02/11/19 03/27/19 Rx .COMPLEX #360 tablet atorvastatin 20 mg tablet 20 mg PO DAILY #90 tab 03/02/19 03/27/19 Rx levothyroxine 175 mcg tablet See Rx Instructions .ROUTE 03/02/19 03/27/19 Rx .COMPLEX #90 tab methocarbamol 750 mg tablet See Rx Instructions .ROUTE 03/09/19 03/27/19 Rx .COMPLEX #90 tab Allergies Allergy/AdvReac Type Severity Reaction Status Date / Time codeine [CODEINE] Allergy Unknown unknown Verified 03/02/19 11:51 hydromorphone [From Dilaudid] AdvReac Intermediate Hallucinati Verified 03/02/19 11:51 ng Review of Systems Review of Systems Narrative: A complete review of systems was negative except for the elements described in the HPI. Exam Vital Signs (past 8 hours): - 03/27/19 11:45 03/27/19 11:52 03/27/19 13:19 Temperature 98.8 F Pulse Rate 93 H 86 Respiratory Rate 22 24 Blood Pressure [Left Wrist] 159/55 H 158/91 H Pulse Oximetry 93 97 03/27/19 15:35 Temperature Pulse Rate 84 Respiratory Rate 18 Blood Pressure [Left Wrist] 154/80 H Pulse Oximetry 96 Oxygen Delivery Method Room Air Oxygen Flow Rate 2 Narrative Exam Narrative: General: Well-developed, obese, male, no acute distress, lying on gurney. Heart: Regular rate and rhythm, heart sounds are distant Lungs: Faint diffuse wheezing, few rales posteriorly Extremities: Warm, his legs are wrapped but the wrap has been removed from his feet which are warm and he has pitting edema to the dorsum Objective Labs Result Diagrams: 03/27/19 14:55 03/27/19 14:55 Labs: Laboratory Results - last 24 hr 03/27/19 03/27/19 03/27/19 14:55 14:55 14:55 WBC 13.2 H RBC 4.11 L Hgb 13.3 L Hct 39.3 L MCV 95.6 MCH 32.2 MCHC 33.7 RDW 14.6 Plt Count 274 Neut % (Auto) 68.4 Lymph % (Auto) 17.5 L Hughes % (Auto) 10.0 Eos % (Auto) 3.3 Baso % (Auto) 0.8 Neut # (Auto) 9000 H Lymph # (Auto) 2300 Hughes # (Auto) 1300 H Eos # (Auto) 400 Baso # (Auto) 100 PT 12.5 INR 1.1 APTT 28 Sodium 138 Potassium 4.6 Chloride 102 Carbon Dioxide 29 BUN 17 Creatinine 0.60 L Estimated GFR > 60.0 BUN/Creatinine Ratio 28.3 H Glucose 118 H Lactate Calcium 9.1 Total Bilirubin 0.8 AST 33 ALT 15 Alkaline Phosphatase 75 Total Creatine Kinase 72 CK-MB (CK-2) TNP CK-MB (CK-2) Rel Index TNP Troponin I 0.016 B-Natriuretic Peptide < 100 Total Protein 7.3 Albumin 3.8 Globulin 3.5 Albumin/Globulin Ratio 1.1 Lipase 27 Procalcitonin 03/27/19 03/27/19 14:55 14:55 WBC RBC Hgb Hct MCV MCH MCHC RDW Plt Count Neut % (Auto) Lymph % (Auto) Hughes % (Auto) Eos % (Auto) Baso % (Auto) Neut # (Auto) Lymph # (Auto) Hughes # (Auto) Eos # (Auto) Baso # (Auto) PT INR APTT Sodium Potassium Chloride Carbon Dioxide BUN Creatinine Estimated GFR BUN/Creatinine Ratio Glucose Lactate 0.9 Calcium Total Bilirubin AST ALT Alkaline Phosphatase Total Creatine Kinase CK-MB (CK-2) CK-MB (CK-2) Rel Index Troponin I B-Natriuretic Peptide Total Protein Albumin Globulin Albumin/Globulin Ratio Lipase Procalcitonin < 0.05 Assessment & Plan Assessment & Plan narrative: 1. Pulmonary edema without signs of cardiac stress or elevation in bnp. other etiologies include pulmonary embolism. will have midline placed since he only has a small IV on his chest. Obtain CT PE protocol. Will treat empirically with lovenox until we can get the line placed and a CT scan done. 2. Clinically he sounds wet and has not had furosemide dose today so will give him 80 mg furosemide IV now. Will give another dose overnight. 3. Legs were unwrapped by nursing and he has one area of ulceration on the left. Has elevated WBC. May have an early cellulitis so will give him a dose of ceftriaxone. will need to have his legs re-wrapped. 4. Continue home medication for hypertension, hyperlipidemia, hypothyroid and depression. 5. Continue home pain medication regimen with tramadol, naproxen and aceaminophen. Monitor kidney function. DVT prophylaxis: has had a dose of lovenox Code status: did not address Patient is acutely ill and requires diuresis and possible treatment for pulmonary embolis and will require at least 2 midnights of care.He will need additional support at home after discharge and it's unclear at this time if he will require SNF care.
--- NOTE | 2019-03-27 16:53 | PC.NURSE ---
needing furthur testing, PE studies.
[2019-03-27 16:57] LABS: D Dimer 231 ng/mL (<230)
[2019-03-27] MEDS: FUROSEMIDE 100 MG/10 ML VIAL 80 MG IV (17:02)
[2019-03-27] MEDS: ENOXAPARIN 100 MG/ML SYRINGE 150 MG SUBCUT (18:27)
[2019-03-27] MEDS: ATENOLOL 25 MG TABLET 75 MG PO (18:27)
[2019-03-27] MEDS: POTASSIUM CHLORIDE 10 MEQ TAB 20 MEQ PO (18:27)
[2019-03-27] MEDS: TRAMADOL 50 MG TABLET PO (19:25)
[2019-03-27] MEDS: ATORVASTATIN 20 MG TABLET PO (21:52)
[2019-03-28] VITALS (15 sets, daily range): BP systolic 105–149; BP diastolic 54–64; PULSE 52–75; RESP 18–24; TEMP 36.3–37.2; O2SAT 90–97
[2019-03-28] MEDS: CEFTRIAXONE 2 GM/50 ML FROZ.PIGGY IV (00:03)
--- NOTE | 2019-03-28 01:33 | PC.NURSE ---
took patient down for A CT scan
[2019-03-28] MEDS: FUROSEMIDE 100 MG/10 ML VIAL 80 MG IV ×2 (02:03→09:48)
[2019-03-28 05:41] LABS: Add Manual Diff / Slide Review NO; Basophils Absolute Auto 100 /uL (0-100); Basophils Percent Auto 0.7 % (0-2); Eosinophils Absolute Auto 600 /uL (0-450); Eosinophils Percent Auto 5.2 % (2-4); Hematocrit 43.7 % (41-53); Hemoglobin 14.7 g/dL (13.5-17.5); Lymphocytes Absolute Auto 2500 /uL (1100-4500); Lymphocytes Percent Auto 21.3 % (25-40); Mean Corpuscular HGB Conc 33.7 % (30-36); Mean Corpuscular Hemoglobin 32.2 PG (26-34); Mean Corpuscular Volume 95.8 fL (80-100); Monocytes Absolute Auto 1100 /uL (0-900); Monocytes Percent Auto 9.3 % (3-14); Neutrophils Absolute Auto 7500 /uL (1500-7000); Neutrophils Percent Auto 63.5 % (50-75); Platelet Count 277 X10^3/uL (150-400); Red Blood Cell Count 4.56 X10^6/uL (4.5-5.9); Red Cell Distribution Width 14.6 % (11.6-14.8); White Blood Cell Count 11.9 X10^3/uL (4.5-11.0)
[2019-03-28 05:50] LABS: Blood Urea Nitrogen 14 mg/dL (9-20); Calcium 9.4 mg/dL (8.4-10.2); Carbon Dioxide 34 mmol/L (22-32); Chloride 96 mmol/L (98-107); Estimated Glomerular Filt Rate > 60.0 mL/min (>60); Glucose 110 mg/dL (80-110); HEMOLYSIS < 15 (0-50); Potassium 4.2 mmol/L (3.4-5.1); Sodium 139 mmol/L (137-145)
--- NOTE | 2019-03-28 06:19 | PC.NURSE ---
Wt change, Documentation on 03/27 in computer reported wt at 166.5kg however the white board in the patient room had 160.5kg written on it from the admit time. Pt wt this am is 155.5. Per I&O documentation, pt had a -1050 fluid balance on evening shift and -0 fluid balance for the NOC shift.
[2019-03-28] MEDS: TRAMADOL 50 MG TABLET PO ×4 (06:29→22:17)
[2019-03-28] MEDS: LEVOTHYROXINE 100 MCG TABLET PO (06:30)
[2019-03-28] MEDS: LEVOTHYROXINE 75 MCG TABLET PO (06:30)
--- NOTE | 2019-03-28 08:31 | DI.ECHO.S_ITS ---
[facility]---------+ [facility] +---------+ : : [address] : : : : [id number] : : : : Phone: [phone]+ Echocardiogram Report + + :Name: PARKER WATKINS Study Date: 03/28/2019 Height: 67 in : :[facility] Exam Location: [facility] Weight: 324 lb : : Gender: Male BSA: 2.5 m2 : :: 1940 Age: 78 yrs BP: 125/58 mmHg: :Reason For Study: Pulmonary Edema : :Ordering Physician: Tabitha : :Hospitalist Performed By: Emmie Seth : :Referring: YARED SANTOS : + + Interpretation Summary Technically difficult study. Mild concentric left ventricular hypertrophy with ejection fraction 60-65%. Mild to moderate tricuspid regurgitation. Right ventricular systolic pressure is estimated to be at least 32 mmHg plus the clinically estimated CVP which cannot be estimated on this exam. Procedure: A two-dimensional transthoracic echocardiogram with color flow and Doppler was performed. Technically difficult echocardiogram despite the use of Definity. The patient was imaged while laying supine. There is no prior echocardiogram noted for this patient. A contrast injection of Definity was performed to improve assessment of LV function. The patient was in normal sinus rhythm during the exam. Left Ventricle: The left ventricle is normal in size. There is mild concentric left ventricular hypertrophy. The ejection fraction is estimated to be 60-65%. There are no obvious focal wall motion abnormalities noted but poor endocardial definition reduces the sensitivity for the detection of such. Right Ventricle: The right ventricle is not well visualized. Atria: The left atrium is not well visualized. Right atrium not well visualized. Mitral Valve: The mitral valve leaflets appear mildly thickened, but open well. There is trace mitral regurgitation. Aortic Valve: The aortic valve is trileaflet. The aortic valve opens well. No aortic regurgitation is present. Tricuspid Valve: The tricuspid valve is normal in structure and function. There is mild to moderate tricuspid regurgitation. Right ventricular systolic pressure is estimated to be at least 32 mmHg plus the clinically estimated CVP which cannot be estimated on this exam. Pulmonic Valve: The pulmonic valve is not well seen, but is grossly normal. Great Vessels: The aortic root is normal size. The ascending aorta is at the upper limits of normal in size. The inferior vena cava was not visualized. Pericardium/ Pleura There is an anterior echo-free space consistent with a fat pad. There is no pericardial effusion. There is no pleural effusion. MMode/2D Measurements & Calculations LVIDd: 4.5 cm LVOT diam: 2.2 cm LVIDs: 2.7 cm Ao root diam: 3.4 cm FS: 39.6 % asc Aorta Diam: 3.8 cm IVSd: 1.2 cm LVPWd: 1.2 cm LV delgadillo. diameter/BSA (cm/m^2): 1.8 LV sys. diameter/BSA (cm/m^2): 1.1 Doppler Measurements & Calculations Ao V2 max: 84.0 cm/sec LVOT Max Williams: 59.1 cm/sec Ao V2 mean: 50.2 cm/sec LV V1 max P.4 mmHg Ao max P.8 mmHg LV V1 VTI: 10.6 cm Ao mean P.2 mmHg TOMAS(I,D): 3.0 cm2 Ao V2 VTI: 13.9 cm TOMAS(V,D): 2.7 cm2 sev ratio: 0.76 TOMAS indexed to BSA (cm^2/m^2): 1.2 MV E max williams: 48.2 cm/sec TR max williams: 282.5 cm/sec MV A max williams: 72.2 cm/sec TR max P.9 mmHg MV E/A: 0.67 PA V2 max: 60.6 cm/sec MV dec time: 0.22 sec PA V2 mean: 40.5 cm/sec PA mean P.72 mmHg PA pr(Accel): 49.1 mmHg SV(LVOT): 41.5 ml Electronically signed by: Damon Molina on Reading Physician:03/28/2019 05:25 PM
[2019-03-28] MEDS: NYSTATIN CREAM 30 GM 1 APPLIC TOP (09:40)
[2019-03-28] MEDS: SODIUM CHLORIDE 0.9% FLUSH 10 ML IV ×2 (09:40→22:16)
[2019-03-28] MEDS: ESCITALOPRAM 10 MG TABLET 20 MG PO (09:41)
[2019-03-28] MEDS: ATENOLOL 25 MG TABLET 75 MG PO (09:41)
[2019-03-28] MEDS: POTASSIUM CHLORIDE 10 MEQ TAB 20 MEQ PO (09:41)
[2019-03-28] MEDS: ASPIRIN EC 81 MG TABLET PO (09:41)
--- NOTE | 2019-03-28 10:49 | PC.NURSE ---
Addendum entered by Rosie Lambert R.N. 03/28/19 15:35: Per wound care Dr Olsen is out sick, so will not see patient today. Wound care reported that patient normally sees Parisa at outpatient PT to have his legs wrapped (r/t Lymphedema). Parisa is working today, so this designer writer left voicemail asking her to call and give some guidance as to what she typically does. Still awaiting return call. Will pass on to ruth ann richey RN. Physical and occupation therapy working with patient at this time. Original Note: Shift summary: Alert and oriented X3. Reports mild shortness of breath at rest, but states his breathing is much better than it was. Has been weaned down to 1L O2 with sats maintaining around 92%. Denies pain or discomfort. Denies chest pain/palpitations/pressure. Tele monitoring ongoing. Message left at wound care asking for them to call back (to make sure they have the consult order, and to see if this designer writer should wrap his legs or if they will do it during the consult)- awaiting return call. ECHO being done in room at this time. Call light within reach, bed alarm on.
--- NOTE | 2019-03-28 12:00 | P.PN_ITS ---
Subjective Subjective Date Patient Seen: 03/28/19 Time Patient Seen: 08:00 Interval history: This morning, the pt reports that he feels overall improved. He states that his breathing is significantly easier. He continues to deny any chest pain. He has not really been out of bed yet, and currently has a mcgee catheter in. He feels that his legs appear as usual, without increase in redness. As per nursing, the pt continues on 3L of oxygen, but it was turned off briefly this morning and his O2 sats stayed in the low 90s. No other concerns at this time. Exam Vital Signs (past 8 hours): - 03/28/19 07:10 03/28/19 08:27 03/28/19 09:29 Temperature 97.6 F Pulse Rate 65 Respiratory Rate 20 Blood Pressure 117/59 L Pulse Oximetry 97 93 93 03/28/19 09:43 Temperature Pulse Rate 65 Respiratory Rate Blood Pressure 117/59 L Pulse Oximetry Oxygen Delivery Method CPAP Oxygen Flow Rate 1 Narrative Exam Narrative: Gen: NAD, sitting comfortably in bed CV: RRR, no murmurs Resp: minimal crackles bilateral bases, adequate air movement throughout, no wheezes Abd: soft, nondistended, morbidly obese, nontender Ext: 4+ pitting edema bilateral LE, chronic venous stasis changes with mild erythema bilaterally but no increase in warmth (stable from baseline), left lateral calf with approximately 4cm diameter area of prior blister, now without any fluid present, but thin skin skin layer present Objective Labs Result Diagrams: 03/28/19 05:25 03/28/19 05:25 Labs: Laboratory Results - last 24 hr 03/27/19 03/27/19 03/27/19 14:55 14:55 14:55 WBC 13.2 H RBC 4.11 L Hgb 13.3 L Hct 39.3 L MCV 95.6 MCH 32.2 MCHC 33.7 RDW 14.6 Plt Count 274 Neut % (Auto) 68.4 Lymph % (Auto) 17.5 L [place] % (Auto) 10.0 Eos % (Auto) 3.3 Baso % (Auto) 0.8 Neut # (Auto) 9000 H Lymph # (Auto) 2300 [place] # (Auto) 1300 H Eos # (Auto) 400 Baso # (Auto) 100 PT 12.5 INR 1.1 APTT 28 D-Dimer Sodium 138 Potassium 4.6 Chloride 102 Carbon Dioxide 29 BUN 17 Creatinine 0.60 L Estimated GFR > 60.0 BUN/Creatinine Ratio 28.3 H Glucose 118 H Lactate Calcium 9.1 Magnesium Total Bilirubin 0.8 AST 33 ALT 15 Alkaline Phosphatase 75 Total Creatine Kinase 72 CK-MB (CK-2) TNP CK-MB (CK-2) Rel Index TNP Troponin I 0.016 B-Natriuretic Peptide < 100 Total Protein 7.3 Albumin 3.8 Globulin 3.5 Albumin/Globulin Ratio 1.1 Lipase 27 Procalcitonin 03/27/19 03/27/19 03/27/19 14:55 14:55 14:55 WBC RBC Hgb Hct MCV MCH MCHC RDW Plt Count Neut % (Auto) Lymph % (Auto) [place] % (Auto) Eos % (Auto) Baso % (Auto) Neut # (Auto) Lymph # (Auto) [place] # (Auto) Eos # (Auto) Baso # (Auto) PT INR APTT D-Dimer 231 H Sodium Potassium Chloride Carbon Dioxide BUN Creatinine Estimated GFR BUN/Creatinine Ratio Glucose Lactate 0.9 Calcium Magnesium Total Bilirubin AST ALT Alkaline Phosphatase Total Creatine Kinase CK-MB (CK-2) CK-MB (CK-2) Rel Index Troponin I B-Natriuretic Peptide Total Protein Albumin Globulin Albumin/Globulin Ratio Lipase Procalcitonin < 0.05 03/28/19 03/28/19 05:25 05:25 WBC 11.9 H RBC 4.56 Hgb 14.7 Hct 43.7 MCV 95.8 MCH 32.2 MCHC 33.7 RDW 14.6 Plt Count 277 Neut % (Auto) 63.5 Lymph % (Auto) 21.3 L [place] % (Auto) 9.3 Eos % (Auto) 5.2 H Baso % (Auto) 0.7 Neut # (Auto) 7500 H Lymph # (Auto) 2500 [place] # (Auto) 1100 H Eos # (Auto) 600 H Baso # (Auto) 100 PT INR APTT D-Dimer Sodium 139 Potassium 4.2 Chloride 96 L Carbon Dioxide 34 H BUN 14 Creatinine 0.70 Estimated GFR > 60.0 BUN/Creatinine Ratio 20.0 Glucose 110 Lactate Calcium 9.4 Magnesium 2.0 Total Bilirubin AST ALT Alkaline Phosphatase Total Creatine Kinase CK-MB (CK-2) CK-MB (CK-2) Rel Index Troponin I B-Natriuretic Peptide Total Protein Albumin Globulin Albumin/Globulin Ratio Lipase Procalcitonin Assessment & Plan Assessment & Plan narrative: Pt is a 78yo man with hypertension, hypothyroidism, hyperlipidemia, depression, chronic lower extremity edema, morbid obesity, and chronic back pain who presents with shortness of breath and weakness, found to be hypoxic by EMS. Pt found to have significant pulmonary edema on CXR at admission, despite normal BNP. CT PE negative as well. 1) Pulmonary edema with chronic LE edema: Good response to IV Furosemide yesterday. Received one therapeutic dose Lovenox yesterday, negative CT PE after. - Repeat 80mg IV Lasix today - Echocardiogram today - Start wrapping legs again today - Continue to trend kidney function - Continue to wean oxygen as tolerated. If unable to wean, will repeat CXR tomorrow. - PT/OT consulted 2) Possible lower extremity cellulitis: Legs appear at baseline to me today, no evidence of significant cellulitis. - Continue to trend CBC - Continue to dress and monitor wound 3) Hypertension: - Continue home Atenolol, Lisinopril 4) Hypothyroidism: - Continue home Levothyroxine 5) Hyperlipidemia: - Continue home Atorvastatin 6) Chronic pain: - Continue home Tramadol, Naproxen, 7) Depression: - Continue home Lexapro FEN: General diet DVT prophylaxis: Lovenox Code: Full Dispo: Pending stabilization of respiratory status, work-up above completed. Hopeful can d/c off oxygen. Anticipate 2 additional midnights. Pt would like to discharge to [facility] in [place]. Quality VTE Deep Vein Thrombosis/Pulmonary Embolism Present on Admission: No
--- NOTE | 2019-03-28 15:00 | OT.IP.EVAL ---
Addendum entered and electronically signed by Dalia Farr OT 03/28/19 18:09: Pt states has a chipped tooth that rubs and cuts his tongue when he talks. Pt meaning to see a dentist but not able to afford to do so at this time. After checking with nursing, able to have pt place gauze on his tooth to prevent from rubbing and cutting his tongue. Pt aware to be careful and not to swallow the gauze. Original Note: Past Medical History (Last Updated 03/03/19 @ 09:49 by Angella Rondon MD) Hyperlipidemia (Acute) Hypertension (Chronic) Hypothyroidism (Chronic) Lymphedema (Acute) Morbid obesity (Chronic) Urinary incontinence (Chronic 2013) Surgical History (Last Updated 03/27/19 @ 17:18 by Ada Cardenas DO) History of cholecystectomy (Acute) Occupational Therapy Inpatient Evaluation/Re-Eval M1 PT/OT-IP Prior Functional Status Start: 03/28/19 17:25 Freq: NEEDED Status: Active Protocol: Document 03/28/19 15:00 [facility] (Rec: 03/28/19 17:42 [facility] [id number]) Medical Review Prior Functional Status Medical History Reviewed Yes Communication WNL Mobility and Gait Pt reports he used a 4WW outside the house for a max distance of 1-1.5 blocks. For household mobility, he cruised furniture for support. He denies any falls in the past year other than the one that brought him in for this episode of care, but it is unclear how he defines falls. Activities of Daily Living and IADL's Pt required extra time for bathing and could manage only once per week. He was mod independent for dressing and independent for toileting. He did not drive, rather depended on [employer] for tranportation. He managed his own medications and finances. Prior Functional Level (Other details) Pt has been connected with [facility] caregivers before, but the participation fee had become prohibitive, so he managed on his own the past two months which he believes contributed to his decline. [facility] caregiver helped with cleaning, laundry, cooking. Social History Household Members none Living Arrangements Mobile home Number of Floors (Floors) One Floor Number of Stairs To Enter/Railing? 5 MABEL with L rail ascending. Pt managed stairs with left railing, step-to pattern. Home Environment High Toilet,Tub/Shower Home Equipment Front Wheel Walker,Four Wheel Walker,Raised Toilet Seat w/ Armrests,Tub Transfer Bench, Hand Held Shower,Hospital Bed Additional Social History Comment Pt has a son who lives locally but relations are strained. He's mad at me right now. Pt lives alone and has no other assistance at this time. M2 OT-IP Current Condition Start: 03/28/19 17:25 Freq: Status: Active Protocol: Document 03/28/19 15:00 [facility] (Rec: 03/28/19 17:42 [facility] [id number]) Occupational Therapy Current Condition Current Condition Evaluation Date 03/28/19 Treatment Diagnosis Pulmonary edema, SOB, decreased activity tolerance Diagnosis Onset Date 03/27/19 Weight Bearing Status Weight Bearing Status Weight Bear as Tolerated M3 OT- IP Subjective and Pain Start: 03/28/19 17:25 Freq: Status: Active Protocol: Document 03/28/19 15:00 [facility] (Rec: 03/28/19 17:42 [facility] [id number]) OT- Subjective Occupational Therapy Visit Type Type Initial Evaluation Visit Start Time 15:00 Visit Stop Time 15:46 Total Visit Minutes 46 Occupational Therapy Visit Comments Patient Comments Pt agreeable to get up for Ot/ PT eval. Patient/Caregiver Goals Pt wanting to get stronger and improve activity tolerance so able to care for himself. OT Pain Assessment Pain When Pain Assessed At Rest Pain Present Pain Present Pain Reported Location Lower Back Intensity 2 Scale Used Numeric (1 - 10) M4 OT- IP ADL's Start: 03/28/19 17:25 Freq: Status: Active Protocol: Document 03/28/19 15:00 [facility] (Rec: 03/28/19 17:42 [facility] [id number]) OT [id number] Comments OT Self-Feeding Comments Not at meal time. OT ADL-Grooming Comments OT Grooming Comments Pt states did grooming earlier . OT ADL-Dressing General Eval Lower Body Dressing Ability Moderate Assistance Comments OT Dressing Comments Pt states mainly barefooted at home and use of venture capital analyst and dressing stick to assist for LB dressing needs. Pt needing assist to hold slippers in place while pt able to slid on the slippers. OT ADL-Toileting Comments OT Toileting Comments [place] in, pt states has a toilet aid that he uses at home to help with hygiene needs. Pt states incontinent at home and having to change out his brief often. OT ADL-Bathing Comments OT Bathing Comments Not performed at this time. M5 OT- IP IADL's Start: 03/28/19 17:25 Freq: Status: Active Protocol: Document 03/28/19 15:00 [facility] (Rec: 03/28/19 17:42 [facility] [id number]) OT-Instrumental Activities of Daily Living Deficits IADL Deficits Identified Deficits Home Safety Awareness Awareness of Need for Assistance at Home Good Awareness Ability to Problem Solve Emergency Able to Problem Solve Situations Home Safety Comments At this time pt not able to drag his laundry tub to his washer or stand long enough to for meal prep needs. Medication Management Medication Management No Deficits Identified Money Management Money Management No Deficits Identified Meal Preparation Meal Preparation Comments Pt states able to only stand for 20 minutes at a time before having to sit down while during meal prep. M6 OT- IP Functional Cognition Start: 03/28/19 17:25 Freq: Status: Active Protocol: Document 03/28/19 15:00 [facility] (Rec: 03/28/19 17:42 [facility] [id number]) Cognitive Factors Limiting Selfcare Function Cognitive Ability Level of Alertness Alert Patient Orientation Name,Place,Situation Attention Span Ability Capable of Focused Attention, Capable of Sustained Attention Ability to Follow Commands Able to Follow Multi-Step Commands Cognitive Comments Cognitive Assessment Comments Appears to be at baseline, no cognitive deficits noted at this time. OT- Vision and Hearing OT- Hearing Assessment OT- Hearing Assessment WFL OT- Vision Assessment Visual Acuity Glasses All The Time M7 OT- IP Mobility and Balance Start: 03/28/19 17:25 Freq: Status: Active Protocol: Document 03/28/19 15:00 [facility] (Rec: 03/28/19 17:42 [facility] [id number]) OT- Bed Mobility Assessment Supine to Sit Supine to Sit Assist Moderate Assistance,2 Person Assistance Scooting Scooting to Edge of Bed Contact Guard Assistance OT-Transfer Assessment Sit to and From Stand Sit to and from Stand Minimal Assistance,1 Person Assistance Transfers Transfer Ability Minimal Assistance,1 Person Assistance Technique Transfer Destination Bed,Chair Transfer Technique Stand Step Pivot Devices Transfer Assistive Devices Gait Belt,Front Wheeled Walker Comments Mobility Comments MOD x 2 to get from sidelying to upright, pt states has a bed rail that he uses at home to assist. Pt easily fatigues while walking in the room with FWW for approx 25ft and leaning more to the left at the end. Pt on RA and briefly dropped to 88% but otherwise above 90%. OT- Balance Assessment Sitting Balance and Reactions Static Sitting Balance Ability Good Dynamic Sitting Balance Ability Fair Standing Balance and Reactions Static Standing Balance Ability Fair M8 OT- IP Objective Assessments Start: 03/28/19 17:25 Freq: Status: Active Protocol: Document 03/28/19 15:00 [facility] (Rec: 03/28/19 17:42 [facility] [id number]) OT Gross Range of Motion Upper Extremity Range of Motion Assessment Within Functional Limits OT Strength Upper Extremity Strength Assessment Within Functional Limits OT- Coordination Assessment Upper Extremity Finger Tapping Test Within Functional Limits OT-Muscle Tone Assessment Muscle Tone WNL Yes M9 OT- IP Assessment and Plan Start: 03/28/19 17:25 Freq: Status: Active Protocol: Document 03/28/19 15:00 [facility] (Rec: 03/28/19 17:42 [facility] [id number]) OT Summary Assessment and Plan Potential Rehabilitation Potential Good Analytic Complexity at Evaluation Low Summary OT Impairments Strength,Balance,Functional Mobility,Grooming,Dressing, Toileting,Bathing,Toilet Transfers,Shower Transfers Progress Towards Goals Slow Progress due to Activity Tolerance Assessment Summary Pt low complexity and main barrier is decreased activity tolerance and now requiring assist for ADL's and functional mobility needs. Per pt has become weaker since not able to afford [facility] care givers anymore to assist with IADl needs and showering. Pt states due to fatigue just shower 1x/week. Pt would benefit from skilled rehab to work on increasing overall activity tolerance, dynamic balance so able to be more independent and tolerate doing daily needs with increased ease and safety. Goals Self-Feeding Goal Independent Grooming Goal Independent Dressing Goal Independent Toileting Goal Independent Bathing Goal Independent Toilet Transfer Goal Independent Shower Transfer Goal Independent Patient/Caregiver Education Goal Demonstrate Energy Conservation and Pacing Days to Meet Goals 14 Frequency of Treatment Frequency Of Treatment Once a Day Treatment Plan OT Treatment Plan ADL Training,Functional Mobility,Patient/Family Education,Discharge Planning Other Treatment Recommendations and Next Standing for grooming needs, Treatment Focus energy conservation education Discharge Recommendations OT Discharge Recommendations SNF Rehab Home Equipment Needs Defer to SNF
[2019-03-28] MEDS: ENOXAPARIN 40 MG/0.4 ML SYRINGE SUBCUT (15:21)
--- NOTE | 2019-03-28 16:47 | PT.IIE ---
Surgical History (Last Updated 03/27/19 @ 17:18 by Ada Cardenas DO) History of cholecystectomy (Acute) Medical History (Last Updated 03/03/19 @ 09:49 by Angella Rondon MD) Hyperlipidemia (Acute) Hypertension (Chronic) Hypothyroidism (Chronic) Lymphedema (Acute) Morbid obesity (Chronic) Urinary incontinence (Chronic 2014) Physical Therapy Inpatient Evaluation/Re-Eval M1 PT/OT-IP Prior Functional Status Start: 03/28/19 13:32 Freq: NEEDED Status: Active Protocol: Document 03/28/19 16:06 [facility] (Rec: 03/28/19 16:47 [facility] [id number]) Medical Review Prior Functional Status Medical History Reviewed Yes Communication WNL Mobility and Gait Pt reports he used a 4WW outside the house for a max distance of 1-1.5 blocks. For household mobility, he cruised furniture for support. He denies any falls in the past year other than the one that brought him in for this episode of care, but it is unclear how he defines falls. Activities of Daily Living and IADL's Pt required extra time for bathing and could manage only once per week. He was mod independent for dressing and independent for toileting. He did not drive, rather depended on [employer] for tranportation. He managed his own medications and finances. Prior Functional Level (Other details) Pt has been connected with [facility] caregivers before, but the participation fee had become prohibitive, so he managed on his own the past two months which he believes contributed to his decline. [facility] caregiver helped with cleaning, laundry, cooking. Social History Household Members none Living Arrangements Mobile home Number of Floors (Floors) One Floor Number of Stairs To Enter/Railing? 5 MABEL with L rail ascending. Pt managed stairs with left railing, step-to pattern. Home Environment High Toilet,Tub/Shower Home Equipment Front Wheel Walker,Four Wheel Walker,Raised Toilet Seat w/ Armrests,Tub Transfer Bench, Hand Held Shower,Hospital Bed Additional Social History Comment Pt has a son who lives locally but relations are strained. He's mad at me right now. Pt lives alone and has no other assistance at this time. M2 PT-IP Current Condition Start: 03/28/19 13:32 Freq: NEEDED Status: Active Protocol: Document 03/28/19 16:06 [facility] (Rec: 03/28/19 16:47 AW [id number]) Physical Therapy Current Condition Current Condition Evaluation Date 03/28/19 Treatment Diagnosis pulmonary edema, LLE venous stasis ulcer, impaired mobility Onset Date 03/27/19 Precautions Other Precautions caution for skin breakdown Weight Bearing Status Weight Bearing Status Full Weight Bearing M3 PT-IP Subjective Start: 03/28/19 13:32 Freq: NEEDED Status: Active Protocol: Document 03/28/19 16:06 [facility] (Rec: 03/28/19 16:47 AW [id number]) Subjective Physical Therapy Visit Type Type Initial Evaluation Visit Start Time 15:05 Visit Stop Time 15:30 Total Visit Minutes 25 Notes Co-treat with OT Number of TERMINAL WORKER Visits 0 Physical Therapy Visit Comments Patient Comments Pt willing to work with PT Patient Goals Pt believes he would benefit from SNF rehab before return to home Therapy Pain Assessment Pain When Pain Assessed During Mobility Pain Present Pain Present Pain Reported Location Lower Back Scale Used not quantified Pain Behaviors Facial Grimacing,Guarding, Wincing Pain Management Techniques Re-positioning M4 PT-IP Mobility and Gait Start: 03/28/19 13:32 Freq: NEEDED Status: Active Protocol: Document 03/28/19 16:06 [facility] (Rec: 03/28/19 16:47 AW [id number]) PT-Bed Mobility Assessment Supine to Sit Supine to Sit Moderate Assistance,2 Person Assistance,Bedrails Scooting Scooting to Edge of Bed Standby Assistance PT-Transfer Assessment Sit to and From Stand Sit to and from Stand Contact Guard Assistance,Use of Upper Extremities Equipment Transfer Assistive Device Gait Belt,4 Wheeled Walker Orthotic/Prosthetic Devices or Brace: No Transfers Transfer Destination Chair Transfer Technique pt transferred stand step pivot x 1, then ambulated with FWW x 1 to chair Transfer Ability Level of Assist Contact Guard Assistance,1 Person Assistance,Use of Upper Extremities Comments Mobility Comments Pt reports that although his bed is adjustable, he typically gets up from a flat bed. Attempt at supine to sit from flat hospital bed required mod A x 2 with OT offering hand for pt to pull and PT assisting from behind. Pt stated that his bed is lower to the ground and firmer , making it easier to move on. Pt completed sit to stand and step pivot transfer to chair using pt's own 4WW CGA. He stated I hate this walker. Pressed for details, he said the walker was too cumbersome, he didn't like the slope of the seat, and he felt unsteady with it. Pt then ambulated in room with wide FWW, requiring CGA but with improved stability compared with 4WW. Gait Assessment Gait Gait Assistance Required: Contact Guard Assist Distance (Feet) 25 Able to Maintain Weight Bearing Status Yes During Gait Assistive Devices Assistive Device Gait Belt,Front Wheeled Walker Orthotic/Prosthetic Devices or Brace: No Gait Deviations General Gait Pattern Antalgic,Decreased Stride Length,Decreased Feet Clearance,Flexed Trunk,Wide Based Gait Factors Limiting Gait Function Factors Limiting Gait Function Decreased Activity Tolerance, Decreased Strength,Pain Comments Gait Comments Pt ambulated ~25 feet in room with FWW CGA. He was steadier with FWW than with 4WW which he tended to push too far in front of himself. Pt tired easily and transferred back to chair. SpO2 maintained no lower than 90%. Stair Climbing Assessment Comments Stair Climbing Comments Not assessed. PT-Balance Assessment Sitting Balance and Reactions Static Sitting Balance Ability Fair Dynamic Sitting Balance Ability Fair Standing Balance and Reactions Static Standing Balance Ability Fair Dynamic Standing Balance Ability Fair Device Used FWW M5 PT-IP Objective Assessments Start: 03/28/19 13:32 Freq: NEEDED Status: Active Protocol: Document 03/28/19 16:06 [facility] (Rec: 03/28/19 16:47 AW [id number]) Orientation Orientation/Cognition Level of Alertness Alert Orientation Name,Day of Week,Place, Situation Language Function Ability No Deficits Noted Safety Awareness Understands Safety Issues Memory Description No Deficits Noted Gross Range of Motion Lower Extremity ROM Assessment Bilaterally Impaired Impairments Able to flex hips against gravity in sitting but not through full range. Left knee lacking ~5 degrees extension Strength Lower Extremity Strength Assessment Bilaterally Impaired Hip 3+/5 Knee 4/5 Comments Strength Comments Difficult to assess due to pt habitus. Pt with difficulty lifting left leg due to edema. Sensation Assessment Comments Sensation Comments Intact light touch per pt M6 PT-IP Treatment Start: 03/28/19 13:32 Freq: NEEDED Status: Active Protocol: Document 03/28/19 16:06 AW (Rec: 03/28/19 16:47 AW [id number]) Physical Therapy Treatment Education Education Provided Precautions,Safety Other Treatments Other Treatment Performed Reviewed PT plan of care and discussed AD options with pt. He seems aware that safety may be increased with FWW vs 4WW. M7 PT-IP Assessment and Plan Start: 03/28/19 13:32 Freq: NEEDED Status: Active Protocol: Document 03/28/19 16:06 AW (Rec: 03/28/19 16:47 AW [id number]) PT Summary Assessment and Plan Potential Rehabilitation Potential Good Status of Condition at Evaluation Evolving Summary Impairments Pain,ROM,Strength,Balance,Bed Mobility,Transfers,Gait, Activity Tolerance Assessment Summary Adiel is a 78 yo man admitted with pulmonary edema, left LE venous ulcer, and progressive weakness. Pt lives alone and had [facility] caregiver but has been unable to afford his participation fee the past few months. For that reason, he has been managing to care for himself but requiring extra time and effort. He has been modified independent for household mobility without device and for community ambulation with FWW - max distance 1-1.5 blocks. CLOF: Pt required mod A x 2 for supine to sit, CGA for most other mobilities. Ambulation 25 feet in room with FWW resulted in fatigue and labored breathing although SpO2 did not drop below ~90%. Pt presents with decreased strength and endurance as well as chronic back pain which are limiting his ability to care for himself at home. PT recommends SNF rehab to increase the likelihood of safe return to home though it is possible he will need increased caregiver support to remain in home or to consider alternative long-term care options. Goals Bed Mobility Goal Standby Assistance Transfer Goal Independent,Front Wheeled Walker Gait Goal Independent,Front Wheel Walker Gait Distance 150 feet Other Goals up/down 5 steps with left rail ascending SBA Days to Meet Goals 10 Frequency of Treatment Frequency Of Treatment Once a Day Treatment Plan Physical Therapy Treatment Plan Bed Mobility Training,Transfer Training,Gait Training, Therapeutic Exercise,Balance Retraining,Discharge Planning, Hot or Cold Pack,Neuromuscular Re-ed Other Recommendations and Next Treatment bed mobility, progress gait Focus distance, trial stairs if able Recommendations To Nursing Amount of Assist Needed 1 Person Assist Discharge Recommendations PT Discharge Recommendations SNF Rehab Equipment Needed for Home Before defer to rehab setting Discharge
--- NOTE | 2019-03-28 17:26 | PT.IPTN ---
Physical Therapy Treatment Note M2 PT-IP Current Condition Start: 03/28/19 13:32 Freq: NEEDED Status: Active Protocol: Document 03/28/19 17:21 SAK (Rec: 03/28/19 17:26 SAK [email or web address]) Physical Therapy Current Condition Current Condition Evaluation Date 03/28/19 Treatment Diagnosis pulmonary edema, LLE venous stasis ulcer, impaired mobility Onset Date 03/27/19 Precautions Other Precautions caution for skin breakdown Lymphedema: legs to be wrapped Weight Bearing Status Weight Bearing Status Full Weight Bearing M3 PT-IP Subjective Start: 03/28/19 13:32 Freq: NEEDED Status: Active Protocol: Document 03/28/19 17:21 SAK (Rec: 03/28/19 17:26 SAK [email or web address]) Subjective Physical Therapy Visit Type Type Treatment Note Visit Start Time 14:40 Visit Stop Time 15:15 Total Visit Minutes 35 Notes for lymphedema wrappiong Number of MAGENTO DEVELOPER Visits 0 Physical Therapy Visit Comments Patient Comments Patient reporting he thinks he will be going to rehab prior to return home. M4 PT-IP Mobility and Gait Start: 03/28/19 13:32 Freq: NEEDED Status: Active Protocol: Document 03/28/19 16:06 AW (Rec: 03/28/19 16:47 AW [id number]) PT-Bed Mobility Assessment Supine to Sit Supine to Sit Moderate Assistance,2 Person Assistance,Bedrails Scooting Scooting to Edge of Bed Standby Assistance PT-Transfer Assessment Sit to and From Stand Sit to and from Stand Contact Guard Assistance,Use of Upper Extremities Equipment Transfer Assistive Device Gait Belt,4 Wheeled Walker Orthotic/Prosthetic Devices or Brace: No Transfers Transfer Destination Chair Transfer Technique pt transferred stand step pivot x 1, then ambulated with FWW x 1 to chair Transfer Ability Level of Assist Contact Guard Assistance,1 Person Assistance,Use of Upper Extremities Comments Mobility Comments Pt reports that although his bed is adjustable, he typically gets up from a flat bed. Attempt at supine to sit from flat hospital bed required mod A x 2 with OT offering hand for pt to pull and PT assisting from behind. Pt stated that his bed is lower to the ground and firmer , making it easier to move on. Pt completed sit to stand and step pivot transfer to chair using pt's own 4WW CGA. He stated I hate this walker. Pressed for details, he said the walker was too cumbersome, he didn't like the slope of the seat, and he felt unsteady with it. Pt then ambulated in room with wide FWW, requiring CGA but with improved stability compared with 4WW. Gait Assessment Gait Gait Assistance Required: Contact Guard Assist Distance (Feet) 25 Able to Maintain Weight Bearing Status Yes During Gait Assistive Devices Assistive Device Gait Belt,Front Wheeled Walker Orthotic/Prosthetic Devices or Brace: No Gait Deviations General Gait Pattern Antalgic,Decreased Stride Length,Decreased Feet Clearance,Flexed Trunk,Wide Based Gait Factors Limiting Gait Function Factors Limiting Gait Function Decreased Activity Tolerance, Decreased Strength,Pain Comments Gait Comments Pt ambulated ~25 feet in room with FWW CGA. He was steadier with FWW than with 4WW which he tended to push too far in front of himself. Pt tired easily and transferred back to chair. SpO2 maintained no lower than 90%. Stair Climbing Assessment Comments Stair Climbing Comments Not assessed. PT-Balance Assessment Sitting Balance and Reactions Static Sitting Balance Ability Fair Dynamic Sitting Balance Ability Fair Standing Balance and Reactions Static Standing Balance Ability Fair Dynamic Standing Balance Ability Fair Device Used FWW M5 PT-IP Objective Assessments Start: 03/28/19 13:32 Freq: NEEDED Status: Active Protocol: Document 03/28/19 16:06 AW (Rec: 03/28/19 16:47 AW [id number]) Orientation Orientation/Cognition Level of Alertness Alert Orientation Name,Day of Week,Place, Situation Language Function Ability No Deficits Noted Safety Awareness Understands Safety Issues Memory Description No Deficits Noted Gross Range of Motion Lower Extremity ROM Assessment Bilaterally Impaired Impairments Able to flex hips against gravity in sitting but not through full range. Left knee lacking ~5 degrees extension Strength Lower Extremity Strength Assessment Bilaterally Impaired Hip 3+/5 Knee 4/5 Comments Strength Comments Difficult to assess due to pt habitus. Pt with difficulty lifting left leg due to edema. Sensation Assessment Comments Sensation Comments Intact light touch per pt M6 PT-IP Treatment Start: 03/28/19 13:32 Freq: NEEDED Status: Active Protocol: Document 03/28/19 17:21 SAK (Rec: 03/28/19 17:26 SAK [email or web address]) Physical Therapy Treatment Other Treatments Other Treatment Performed Lymphedema wrapping with Artiflex and Comprilan bilateral LE's. Ankle pumps encouraged after wrapping to facilitate lymphatic flow. BUSINESS PLANNING ANALYST instructed to check color of patient toes; if discolored blue, wraps to be removed. M7 PT-IP Assessment and Plan Start: 03/28/19 13:32 Freq: NEEDED Status: Active Protocol: Document 03/28/19 17:21 SAK (Rec: 03/28/19 17:26 SAK [email or web address]) PT Summary Assessment and Plan Potential Rehabilitation Potential Good Status of Condition at Evaluation Evolving Summary Impairments Pain,ROM,Strength,Balance,Bed Mobility,Transfers,Gait, Activity Tolerance Assessment Summary Adiel is a 78 yo man admitted with pulmonary edema, left LE venous ulcer, and progressive weakness. Pt lives alone and had STEPHAN caregiver but has been unable to afford his participation fee the past few months. For that reason, he has been managing to care for himself but requiring extra time and effort. He has been modified independent for household mobility without device and for community ambulation with FWW - max distance 1-1.5 blocks. CLOF: Pt required mod A x 2 for supine to sit, CGA for most other mobilities. Ambulation 25 feet in room with FWW resulted in fatigue and labored breathing although SpO2 did not drop below ~90%. Pt presents with decreased strength and endurance as well as chronic back pain which are limiting his ability to care for himself at home. PT recommends SNF rehab to increase the likelihood of safe return to home though it is possible he will need increased caregiver support to remain in home or to consider alternative long-term care options. Goals Bed Mobility Goal Standby Assistance Transfer Goal Independent,Front Wheeled Walker Gait Goal Independent,Front Wheel Walker Gait Distance 150 feet Other Goals up/down 5 steps with left rail ascending SBA Decrease LE edema through lymphedema wrapping. Nursing to be instructed as possible. Days to Meet Goals 10 Frequency of Treatment Frequency Of Treatment Once a Day Treatment Plan Physical Therapy Treatment Plan Bed Mobility Training,Transfer Training,Gait Training, Therapeutic Exercise,Balance Retraining,Discharge Planning, Hot or Cold Pack,Neuromuscular Re-ed Recommendations To Nursing Amount of Assist Needed 2 Person Assist Discharge Recommendations PT Discharge Recommendations SNF Rehab Equipment Needed for Home Before defer to rehab setting Discharge
--- NOTE | 2019-03-28 19:11 | PC.NURSE ---
Evening note: Adiel sat in recliner until about 1600 when he transferred back to bed with 2 max assist pivot transfer. Physical therapist Estella here to wrap his lower legs per their routine. She said that we should keep the legs wrapped 24 hours/day and said she would try to come back tomorrow afternoon to re-wrap legs. LE's very dry, scaly, 3+ edema at various places, some areas do not pit. Lungs with expiratory wheeze, RA oxygen now 97% and he denies any SOB at rest. Does become SOB with exertion of transfer. He reports chronic back pain, medicated with tramadol per schedule. He remains oriented x 3 and situation, using nurse call button appropriately, fall precautions are in place & alarm active for safety.
[2019-03-28] MEDS: ATORVASTATIN 20 MG TABLET PO (22:17)
[2019-03-29] VITALS (8 sets, daily range): BP systolic 91–137; BP diastolic 58–68; PULSE 52–76; RESP 16–24; TEMP 36.3–37.2; O2SAT 88–98
[2019-03-29] MEDS: TRAMADOL 50 MG TABLET PO ×3 (04:55→23:01)
[2019-03-29 05:34] LABS: Add Manual Diff / Slide Review NO; Basophils Absolute Auto 100 /uL (0-100); Eosinophils Absolute Auto 900 /uL (0-450); Eosinophils Percent Auto 7.3 % (2-4); Hematocrit 42.3 % (41-53); Hemoglobin 14.1 g/dL (13.5-17.5); Lymphocytes Absolute Auto 3000 /uL (1100-4500); Mean Corpuscular HGB Conc 33.3 % (30-36); Mean Corpuscular Hemoglobin 32.1 PG (26-34); Mean Corpuscular Volume 96.4 fL (80-100); Monocytes Absolute Auto 1100 /uL (0-900); Monocytes Percent Auto 9.4 % (3-14); Neutrophils Absolute Auto 6900 /uL (1500-7000); Neutrophils Percent Auto 57.3 % (50-75); Platelet Count 280 X10^3/uL (150-400); Red Blood Cell Count 4.39 X10^6/uL (4.5-5.9); Red Cell Distribution Width 14.5 % (11.6-14.8); White Blood Cell Count 12.1 X10^3/uL (4.5-11.0)
[2019-03-29 05:43] LABS: BUN Creatinine Ratio 27.5 (6-22); Blood Urea Nitrogen 22 mg/dL (9-20); Calcium 9.2 mg/dL (8.4-10.2); Carbon Dioxide 34 mmol/L (22-32); Chloride 96 mmol/L (98-107); Estimated Glomerular Filt Rate > 60.0 mL/min (>60); Glucose 116 mg/dL (80-110); HEMOLYSIS < 15 (0-50); Potassium 4.1 mmol/L (3.4-5.1); Sodium 137 mmol/L (137-145)
[2019-03-29] MEDS: LEVOTHYROXINE 75 MCG TABLET PO (05:56)
[2019-03-29] MEDS: LEVOTHYROXINE 100 MCG TABLET PO (05:56)
[2019-03-29] MEDS: PANTOPRAZOLE 40 MG TABLET PO (05:59)
--- NOTE | 2019-03-29 08:08 | DI.RAD.S_ITS ---
PROCEDURE: XR CHEST 1V INDICATIONS: persistent low oxygen need, f/u pulmonary edema TECHNIQUE: One view of the chest was acquired. COMPARISON: [facility], CT, CT ANGIO CHEST PE PROTOCOL, 03/28/2019, 0:23. [facility], RG, XR CXR 2 VIEW, 01/08/2002, 12:14. [facility], CR, CHEST 2 VIEW, 03/09/2009, 12:02. [facility], CR, XR CHEST 1V, 03/27/2019, 12:31. FINDINGS: Surgical changes and devices: None. Lungs and pleura: There is interstitial prominence and increased pulmonary vascularity compatible with mild pulmonary congestion. No pleural effusions or pneumothorax. Mediastinum: Mediastinal contours appear normal. Heart size is normal. Bones and chest wall: No suspicious bony lesions. Overlying soft tissues appear unremarkable. IMPRESSION: Persistent mild CHF. Dictated by: Roscoe Huff M.D. on 03/29/2019 at 9:01 Approved by: Roscoe Huff M.D. on 03/29/2019 at 9:03
[2019-03-29] MEDS: FUROSEMIDE 100 MG/10 ML VIAL 80 MG IV (08:44)
[2019-03-29] MEDS: POTASSIUM CHLORIDE 10 MEQ TAB 20 MEQ PO (08:45)
[2019-03-29] MEDS: ENOXAPARIN 40 MG/0.4 ML SYRINGE SUBCUT ×2 (08:45→21:03)
[2019-03-29] MEDS: ASPIRIN EC 81 MG TABLET PO (08:45)
[2019-03-29] MEDS: ATENOLOL 25 MG TABLET 75 MG PO (08:45)
[2019-03-29] MEDS: ESCITALOPRAM 10 MG TABLET 20 MG PO (08:46)
[2019-03-29] MEDS: SODIUM CHLORIDE 0.9% FLUSH 10 ML IV ×2 (08:46→21:04)
[2019-03-29] MEDS: LISINOPRIL 20 MG TABLET PO (08:46)
[2019-03-29] MEDS: NYSTATIN CREAM 30 GM 1 APPLIC TOP ×2 (08:46→21:04)
--- NOTE | 2019-03-29 09:39 | PT.IPTN ---
Current Diagnoses Chronic pulmonary edema (03/27/19) Physical Therapy Treatment Note M2 PT-IP Current Condition Start: 03/28/19 13:32 Freq: NEEDED Status: Active Protocol: Document 03/28/19 17:21 SAK (Rec: 03/28/19 17:26 SAK [email or web address]) Physical Therapy Current Condition Current Condition Evaluation Date 03/28/19 Treatment Diagnosis pulmonary edema, LLE venous stasis ulcer, impaired mobility Onset Date 03/27/19 Precautions Other Precautions caution for skin breakdown Lymphedema: legs to be wrapped Weight Bearing Status Weight Bearing Status Full Weight Bearing M3 PT-IP Subjective Start: 03/28/19 13:32 Freq: NEEDED Status: Active Protocol: Document 03/29/19 09:39 AB (Rec: 03/29/19 12:35 AB [id number]) Subjective Physical Therapy Visit Type Type Treatment Note Visit Start Time 09:39 Visit Stop Time 10:01 Total Visit Minutes 22 Number of CITY COLLECTOR Visits 0 Physical Therapy Visit Comments Patient Comments pt agreeable to do PT Therapy Pain Assessment Pain When Pain Assessed During Mobility Pain Present Pain Present Pain Reported Location Lower Back Intensity 2 Scale Used Numeric (1 - 10) Pain Management Techniques Re-positioning,Timing of Activity with Medications M4 PT-IP Mobility and Gait Start: 03/28/19 13:32 Freq: NEEDED Status: Active Protocol: Document 03/29/19 09:39 AB (Rec: 03/29/19 12:35 AB [id number]) PT-Transfer Assessment Sit to and From Stand Sit to and from Stand Contact Guard Assistance,1 Person Assistance Gait Assessment Gait Gait Assistance Required: Contact Guard Assist Distance (Feet) 40 Able to Maintain Weight Bearing Status Yes During Gait Assistive Devices Assistive Device Gait Belt,Front Wheeled Walker Orthotic/Prosthetic Devices or Brace: No Gait Deviations General Gait Pattern Antalgic,Decreased Stride Length,Decreased Feet Clearance,Wide Based Gait Factors Limiting Gait Function Factors Limiting Gait Function Decreased Activity Tolerance, Decreased Strength,Limited Range of Motion,Pain,Poor Balance,Poor Safety Awareness, Respiratory Distress Comments Gait Comments pt completed sit to stand from chair CGA and ambulated in room using FWW ~ 40 ft CGA. O2 sat decreased to 88% and cued for deep breathing and O2 sat increased to 94%. M5 PT-IP Objective Assessments Start: 03/28/19 13:32 Freq: NEEDED Status: Active Protocol: Document 03/28/19 16:06 AW (Rec: 03/28/19 16:47 AW [id number]) Orientation Orientation/Cognition Level of Alertness Alert Orientation Name,Day of Week,Place, Situation Language Function Ability No Deficits Noted Safety Awareness Understands Safety Issues Memory Description No Deficits Noted Gross Range of Motion Lower Extremity ROM Assessment Bilaterally Impaired Impairments Able to flex hips against gravity in sitting but not through full range. Left knee lacking ~5 degrees extension Strength Lower Extremity Strength Assessment Bilaterally Impaired Hip 3+/5 Knee 4/5 Comments Strength Comments Difficult to assess due to pt habitus. Pt with difficulty lifting left leg due to edema. Sensation Assessment Comments Sensation Comments Intact light touch per pt M6 PT-IP Treatment Start: 03/28/19 13:32 Freq: NEEDED Status: Active Protocol: Document 03/29/19 09:39 AB (Rec: 03/29/19 12:35 AB [id number]) Physical Therapy Treatment Education Education Provided Safety M7 PT-IP Assessment and Plan Start: 03/28/19 13:32 Freq: NEEDED Status: Active Protocol: Document 03/29/19 09:39 AB (Rec: 03/29/19 12:35 AB [id number]) PT Summary Assessment and Plan Potential Rehabilitation Potential Good Summary Impairments Pain,Strength,Balance,Bed Mobility,Transfers,Gait, Activity Tolerance Progress Towards Goals Slow Progress due to Medical Issues,Slow Progress due to Activity Tolerance Assessment Summary pt unable to tolerate much activity due to SOB and O2 sat decreased to 88% during ambulation with O2 on 1L/min. pt will require SNF rehab to improve activity tolerance and increase mobility independence. Goals Bed Mobility Goal Standby Assistance Transfer Goal Independent,Front Wheeled Walker Gait Goal Independent,Front Wheel Walker Gait Distance 150 feet Other Goals up/down 5 steps with left rail ascending SBA Decrease LE edema through lymphedema wrapping. Nursing to be instructed as possible. Days to Meet Goals 10 Frequency of Treatment Frequency Of Treatment Once a Day Treatment Plan Physical Therapy Treatment Plan Bed Mobility Training,Transfer Training,Gait Training, Therapeutic Exercise,Balance Retraining,Discharge Planning, Hot or Cold Pack,Neuromuscular Re-ed Recommendations To Nursing Amount of Assist Needed 1 Person Assist Discharge Recommendations PT Discharge Recommendations SNF Rehab
--- NOTE | 2019-03-29 13:16 | PM.PN.1 ---
Subjective Subjective Date Patient Seen: 03/29/19 Time Patient Seen: 08:10 Interval history: The pt reports that he feels improved this morning. His breathing has become much easier. He denies any pain in his legs. No chest pain. He has not yet ambulated much. His mcgee remains in place. Exam Vital Signs (past 8 hours): - 03/29/19 08:00 03/29/19 09:17 03/29/19 09:18 Temperature 97.4 F L Pulse Rate 70 Respiratory Rate 20 Blood Pressure 117/60 Pulse Oximetry 91 95 88 L 03/29/19 11:59 Temperature 97.6 F Pulse Rate 76 Respiratory Rate 20 Blood Pressure 91/58 L Pulse Oximetry 92 Oxygen Delivery Method Room Air Oxygen Flow Rate 0 Narrative Exam Narrative: Gen: NAD, sitting comfortably in chair, speaking easily in complete sentences CV: RRR, no murmurs Resp: minimal crackles bilateral bases, adequate air movement throughout, no wheezes Abd: soft, nondistended, morbidly obese, nontender Ext: legs currently wrapped Objective Labs Result Diagrams: 03/29/19 05:24 03/29/19 05:24 Labs: Laboratory Results - last 24 hr 03/29/19 03/29/19 05:24 05:24 WBC 12.1 H RBC 4.39 L Hgb 14.1 Hct 42.3 MCV 96.4 MCH 32.1 MCHC 33.3 RDW 14.5 Plt Count 280 Neut % (Auto) 57.3 Lymph % (Auto) 25.0 [place] % (Auto) 9.4 Eos % (Auto) 7.3 H Baso % (Auto) 1.0 Neut # (Auto) 6900 Lymph # (Auto) 3000 [place] # (Auto) 1100 H Eos # (Auto) 900 H Baso # (Auto) 100 Sodium 137 Potassium 4.1 Chloride 96 L Carbon Dioxide 34 H BUN 22 H Creatinine 0.80 Estimated GFR > 60.0 BUN/Creatinine Ratio 27.5 H Glucose 116 H Calcium 9.2 Assessment & Plan Assessment & Plan narrative: Pt is a 78yo man with hypertension, hypothyroidism, hyperlipidemia, depression, chronic lower extremity edema, morbid obesity, and chronic back pain who presents with shortness of breath and weakness, found to be hypoxic by EMS. Pt found to have significant pulmonary edema on CXR at admission, despite normal BNP. CT PE negative as well. 1) Pulmonary edema with chronic LE edema: Continued response to IV Furosemide yesterday. Respiratory status improving with diuresis, but continued oxygen requirement overnight. Normal EF on echo yesterday. - Repeat 80mg IV Lasix today - continue wrapping legs - Continue to trend kidney function - Continue to wean oxygen as tolerated - Repeat CXR due to continued oxygen requirement - PT/OT consulted 2) Possible lower extremity cellulitis: Legs appear at baseline to me today, no evidence of significant cellulitis. - Continue to trend CBC - Continue to dress and monitor wound 3) Hypertension: - Continue home Atenolol, Lisinopril 4) Hypothyroidism: - Continue home Levothyroxine 5) Hyperlipidemia: - Continue home Atorvastatin 6) Chronic pain: - Continue home Tramadol, Naproxen, 7) Depression: - Continue home Lexapro FEN: General diet DVT prophylaxis: Lovenox Code: Full Dispo: Pending stabilization of respiratory status. Hopeful would be able to d/c tomorrow. Quality VTE Deep Vein Thrombosis/Pulmonary Embolism Present on Admission: No
--- NOTE | 2019-03-29 15:55 | CM.DANOTE ---
DCP/Assessment: Reviewed chart. Patient is a 78yr old male admitted to [facility] with SOB and weakness. Patient is obese male requiring bariatric equipment. PCP is Dr. Rondon. Primary payor is 1)Medicare 2)Medicaid. Received verbal referral from Dr. Rondon on 03-28 re: placement. Apparently Laverne was attempting to get patient moved into assisted living type environment but failed due to patient's SOB and mobility issues. Met with patient explained CM/SW role. Patient does provide CM team with permission to speak with Laverne # [phone]. Left vm. Patient aware that he will need SNF and first choice is [facility]. Patient has been there before. Asked FABIOLA/Basilia to fax clinicals and [employer] faxed updated therapy notes. Spoke with Alannah this afternoon and she reports patient accepted for tomorrow afternoon. Also called Dr. Rondon to provide her with update. She reports that she will write orders in AM or notify CM team if patient not medically stable due to continued SOB and 02 requirement. PASSR completed. Placed call to STEPHAN GERONIMO/Kathleen Gomez she is aware of hospitalization and will check in tomorrow on [employer] line. She understands that patient will most likely need assistance with new long-term planning arrangement. P: [facility] when stable. Laverne to be called when at time of d/c and STEPHAN Wang would like to be notified and possibly obtain d/c summary. GEOFF Peterson Discharge Planning/Care Management Advanced directive, confirm from FAMILY Start: 03/27/19 19:24 Freq: Q24H Status: Active Protocol: Document 03/27/19 19:24 AK (Rec: 03/27/19 19:28 AK [id number]) Advance Directive, confirm on record Time 19:28 Person contacted Joana Quinn received No CM Discharge Assessment Start: 03/29/19 15:36 Freq: Status: Active Protocol: Document 03/29/19 15:37 KJS (Rec: 03/29/19 15:55 KJS [id number]) Discharge Planning Assessment Assigned Payroll Accounting Manager GEOFF Peterson Contact Information Joana Iniguez ([facility]) Advance Directives? Yes Advance Directives on File No History Provided By Patient,Family Member,Medical Record Prior Living Arrangements Mobile home Household Members none Type of transporation used prior to Relies on Others admit Independent with ADL's No: Needs assistance due to obesity Is patient alert and oriented? Yes Needs Assistance With Home Chores / Shopping Caregiver for Another No DME Already Rented / Owned Wheelchair Comment Patient has STEPHAN. CM is Kathleen Gmoez # [phone]. Patient has contribution fee that he pays monthly for caregivers. Spoke with Kathleen and she reports patient does not always pay therefore, caregivers off/on. Patient/Family Preference [facility] Facility Comment Inpatient as of 03/27/19 Barriers to Discharge No Discharge Plan [facility] Transportation Arrangement Pending need. Bariatric w/c vs . non-urgent BLS transport Referrals Initiated [facility] If patient plan is SNF: Has PASSR been Yes completed? Inpatient Status as of 03/27/19 SNF/HH Preference [facility] Contact Name/Phone Alannah # [phone] Has Agency SNF been contacted Yes Comment [facility] has accepted for . Whiteboard Updated in Patient Room with Yes name and ext. # of Payroll Accounting Manager Review Status In Process Next Review Type Continued Stay Review
--- NOTE | 2019-03-29 16:13 | OT.IP.TRT ---
Current Diagnoses Chronic pulmonary edema (03/27/19) Occupational Therapy Treatment Note M2 OT-IP Current Condition Start: 03/28/19 17:25 Freq: Status: Active Protocol: Document 03/28/19 15:00 [facility] (Rec: 03/28/19 17:42 [facility] [id number]) Occupational Therapy Current Condition Current Condition Evaluation Date 03/28/19 Treatment Diagnosis Pulmonary edema, SOB, decreased activity tolerance Diagnosis Onset Date 03/27/19 Weight Bearing Status Weight Bearing Status Weight Bear as Tolerated M3 OT- IP Subjective and Pain Start: 03/28/19 17:25 Freq: Status: Active Protocol: Document 03/29/19 15:25 [facility] (Rec: 03/29/19 16:13 [facility] [id number]) OT- Subjective Occupational Therapy Visit Type Type Patient Refusal Notes Pt states too tired from a busy day and not wanting to do OT at this time, therefore check on pt tomorrow.
[2019-03-29] MEDS: ATORVASTATIN 20 MG TABLET PO (21:00)
--- NOTE | 2019-03-29 22:42 | PC.NURSE ---
Evening note: Adiel mostly slept tonight, woke a few times during nurse care & when repositioned, refused dinner earlier. P.T. here to wrap legs with compression drsgs. Adiel denies any pain, previously scheduled tramadol held because he was so drowsy & mostly sleeping this evening. VS stable, HR regular, rate 60's, sometimes bradycardic down to 48 bpm. CPAP on at all times for sleep, O2 4L at first to keep sats over 88%, continuous pulse ox alarming repeatedly between 1600 and 1700, RT up to assist in fitting mask better to his face. Since then I was able to wean O2 down to 1L bled into CPAP, sats maintaining 88-94% Patient now awake, RA oxygen 92-94% Midline drsg changed per protocol, site with dark purple linear bruise approx 15 mm medial to insertion site, some pink skin under where previous tegaderm was placed. Line is drawing back bright blood and flushes with no difficulty. Patient now sitting up eating snack. Ox3 and situation, fall precautions in place, instructed to call nurse if needs assistance or has any concerns. Alarm active for safety.
[2019-03-30 05:10] VITALS: BP 141/68; PULSE 66; RESP 18; TEMP 36.8; O2SAT 94
[2019-03-30] MEDS: TRAMADOL 50 MG TABLET PO (05:14)
[2019-03-30] MEDS: LEVOTHYROXINE 100 MCG TABLET PO (05:14)
[2019-03-30] MEDS: LEVOTHYROXINE 75 MCG TABLET PO (05:14)
[2019-03-30] MEDS: PANTOPRAZOLE 40 MG TABLET PO (05:18)
--- NOTE | 2019-03-30 06:10 | PC.NURSE ---
Patient requiring 1L O2 when sleeping and is on room air when awake.
[2019-03-30 07:31] VITALS: BP 122/43; PULSE 66; RESP 18; TEMP 36.8; O2SAT 93
[2019-03-30 08:23] LABS: Add Manual Diff / Slide Review NO; Basophils Absolute Auto 100 /uL (0-100); Basophils Percent Auto 0.9 % (0-2); Eosinophils Absolute Auto 800 /uL (0-450); Hematocrit 40.2 % (41-53); Hemoglobin 13.2 g/dL (13.5-17.5); Lymphocytes Absolute Auto 3600 /uL (1100-4500); Lymphocytes Percent Auto 30.9 % (25-40); Mean Corpuscular HGB Conc 32.9 % (30-36); Mean Corpuscular Hemoglobin 31.7 PG (26-34); Mean Corpuscular Volume 96.5 fL (80-100); Monocytes Absolute Auto 1300 /uL (0-900); Neutrophils Absolute Auto 5900 /uL (1500-7000); Neutrophils Percent Auto 50.2 % (50-75); Platelet Count 265 X10^3/uL (150-400); Red Blood Cell Count 4.17 X10^6/uL (4.5-5.9); Red Cell Distribution Width 14.6 % (11.6-14.8); White Blood Cell Count 11.8 X10^3/uL (4.5-11.0)
[2019-03-30 08:32] LABS: BUN Creatinine Ratio 28.8 (6-22); Blood Urea Nitrogen 23 mg/dL (9-20); Calcium 8.6 mg/dL (8.4-10.2); Carbon Dioxide 34 mmol/L (22-32); Chloride 97 mmol/L (98-107); Estimated Glomerular Filt Rate > 60.0 mL/min (>60); Glucose 110 mg/dL (80-110); HEMOLYSIS < 15 (0-50); Potassium 4.4 mmol/L (3.4-5.1); Sodium 137 mmol/L (137-145)
--- NOTE | 2019-03-30 08:52 | P.DS_ITS ---
History of Present Illness History of Present Illness Date Patient Seen: 03/30/19 Time Patient Seen: 08:00 Chief complaint: SOB, weakness Narrative: Patient presented to the ED after having to call EMS a third time to help him get up. He was found to have an o2 sat of 86% which improved once back in his chair. He reports that he feels his strength has been diminishing over the past month. He has chronic lower extremity edema, 4+ at baseline. He has been having wound care for his legs and the person who does the wrapping wasn't available last week so his legs have not been re-wrapped for the past week. He denies chest pain, increase in the swelling of his legs, fever, chills, abdominal pain, vomiting. He has loose stools at baseline and uses loperamide on regular basis. He tells me his last bowel movement was yesterday. Discharge Providers Provider Date of admission: 03/27/19 16:18 Discharge Date: 03/30/19 Primary care physician: Angella Rondon MD Consults: 03/27/19 17:02 Consult to Discharge Planning Routine Comment: 03/27/19 21:18 Consult to Wound Care Routine Comment: Consulting Provider: [facility] 03/28/19 11:32 Consult to Occupational Therapy Evaluate & Treat Comment: Physician Instructions: Evaluate and treat Consult to Physical Therapy Evaluate & Treat Comment: Physician Instructions: Evaluate and Treat 03/29/19 12:07 Consult to Respiratory Therapy Evaluate & Treat Comment: Sats on ra at 88% or greater. Thanks Physician Instructions: Evaluate and treat Discharge provider: Angella Rondon MD Summary Hospital Course Discharge Diagnosis: Acute pulmonary edema Chronic lower extremity edema Venous stasis ulcer Hypertension Hypothyroidism Chronic pain Depression Hospital Course: The pt presented with shortness of breath and multiple fall at home, found to be hypoxic. CXR showed pulmonary edema. He was treated with Lasix and therapeutic Lovenox initially due to concern for PE, however CT PE then returned negative and the Lovenox was stopped. Echocardiogram was performed that showed a preserved EF. The pt continued to be diuresed with IV Lasix during his hospitalization, with net loss of 5.5L. The pt reported significant improvement in his breathing, and his oxygen was weaned off. While in the hospital, his legs were wrapped to help with chronic swelling. This should be continued as an outpatient, with Allevyn dressings on his wounds/superficial ulcers. The pt is being d/c'ed with a mcgee catheter, that should be removed at the SNF. Status at Discharge Cognitive/behavioral status at discharge: oriented Overall status at discharge: patient is progressing back to baseline Time Spent with Patient Time spent: Greater than 30 minutes Exam Vital Signs (past 8 hours): - 03/30/19 05:10 03/30/19 07:31 Temperature 98.3 F 98.2 F Pulse Rate 66 66 Respiratory Rate 18 18 Blood Pressure 141/68 H 122/43 L Pulse Oximetry 94 93 Oxygen Delivery Method Nasal Cannula Oxygen Flow Rate 0 Narrative Exam Narrative: Gen: NAD, sitting comfortably in bed, speaking easily in complete sentences CV: RRR, no murmurs Resp: minimal crackles bilateral bases, adequate air movement throughout, no wheezes Abd: soft, nondistended, morbidly obese, nontender Ext: legs currently wrapped Objective Labs Result Diagrams: 03/30/19 08:13 03/30/19 08:13 Labs: Laboratory Results - last 24 hr 03/30/19 03/30/19 08:13 08:13 WBC 11.8 H RBC 4.17 L Hgb 13.2 L Hct 40.2 L MCV 96.5 MCH 31.7 MCHC 32.9 RDW 14.6 Plt Count 265 Neut % (Auto) 50.2 Lymph % (Auto) 30.9 Wells % (Auto) 11.0 Eos % (Auto) 7.0 H Baso % (Auto) 0.9 Neut # (Auto) 5900 Lymph # (Auto) 3600 Wells # (Auto) 1300 H Eos # (Auto) 800 H Baso # (Auto) 100 Sodium 137 Potassium 4.4 Chloride 97 L Carbon Dioxide 34 H BUN 23 H Creatinine 0.80 Estimated GFR > 60.0 BUN/Creatinine Ratio 28.8 H Glucose 110 Calcium 8.6 Discharge Plan Discharge Plan Patient Disposition: [facility] Transfer to: [facility] Discharge orders & Medications Prescriptions: Continued atorvastatin 20 mg tablet 20 mg PO DAILY Qty: 90 RF: 2 levothyroxine 175 mcg tablet See Rx Instructions .ROUTE .COMPLEX Qty: 90 RF: 2 aspirin 81 mg Tablet,Delayed Release (Dr/Ec) 81 mg PO DAILY Qty: 0 RF: 0 atenolol 25 mg tablet 75 mg PO DAILY Qty: 270 RF: 3 lisinopril [Prinivil] 20 mg tablet 20 mg PO QDAY Qty: 90 RF: 3 furosemide 40 mg tablet 80 mg PO QDAY Qty: 60 RF: 5 potassium chloride 10 mEq capsule, extended release 20 meq PO QDAY Qty: 60 RF: 5 omeprazole 40 mg capsule,delayed release(DR/EC) 40 mg PO QAM Qty: 90 RF: 1 ketoconazole 2 % shampoo 1 applictn TOP 2XW Qty: 120 RF: 2 escitalopram oxalate 20 mg tablet See Rx Instructions .ROUTE .COMPLEX Qty: 30 RF: 3 tramadol 50 mg tablet See Rx Instructions .ROUTE .COMPLEX Qty: 360 RF: 0 methocarbamol 750 mg tablet See Rx Instructions .ROUTE .COMPLEX Qty: 90 RF: 0 Disabled Parking Permit See Rx Instructions .Route .COMPLEX Qty: 1 RF: 0 naproxen sodium 220 mg capsule 220 mg PO BID PRN (Reason: pain) Qty: 60 RF: 0 Follow up/Referrals: Angella Rondon MD [Primary Care Provider] - Discharge Health Status Precautions: [place] Diet/Activity/Treatments Diet: Regular Liquid consistency: Normal/Thin Food texture: Regular Catheter: 2-way Mcgee Catheter comment: Remove at nursing facility at admission [facility] Reason for rehabilitation: Recovery r/t decondition Rehab type: Physical therapy and Occupational therapy Discharge Data Primary Care Provider: Angella Rondon Quality VTE Deep Vein Thrombosis/Pulmonary Embolism Present on Admission: No
--- NOTE | 2019-03-30 09:09 | CM.DPC ---
DCP Discharge SNF Per MD, pt is medically stable for d/c to SNF today. SW called [facility] admissions and confirmed they can accept pt today around 1100. EVAN met bedside with pt and explained role and discussed plan of SNF today at [facility] around 1100 and pt confirms he is still agreeable with d/c plan before safe return home alone. EVAN updated RN and ANALYTICS ANALYST on d/c today. JEYSON LAINEZ, signed med rec, d/c summary to [facility]. Plan: Patient to d/c to [facility] SNF today via facility van around 1100. GEOFF Pardo
[2019-03-30] MEDS: POTASSIUM CHLORIDE 10 MEQ TAB 20 MEQ PO (09:29)
[2019-03-30] MEDS: ENOXAPARIN 40 MG/0.4 ML SYRINGE SUBCUT (09:29)
[2019-03-30] MEDS: ATENOLOL 25 MG TABLET 75 MG PO (09:29)
[2019-03-30] MEDS: FUROSEMIDE 100 MG/10 ML VIAL 80 MG IV (09:29)
[2019-03-30] MEDS: ESCITALOPRAM 10 MG TABLET 20 MG PO (09:30)
[2019-03-30] MEDS: ASPIRIN EC 81 MG TABLET PO (09:30)
[2019-03-30] MEDS: NAPROXEN 250 MG TABLET PO (09:30)
[2019-03-30] MEDS: LISINOPRIL 20 MG TABLET PO (09:30)
[2019-03-30] MEDS: NYSTATIN CREAM 30 GM 1 APPLIC TOP (09:30)
[2019-03-30] MEDS: SODIUM CHLORIDE 0.9% FLUSH 10 ML IV (09:30)
--- NOTE | 2019-03-30 09:30 | CM.DPC ---
Addendum entered by GEOFF Pardo 03/30/19 09:58: ADD: Return call from [facility] and updated they can provide transport at 1500 today. EVAN updated ACUTE CARE NURSE, NTL, and RN. SW called pt's son Isak and left msg with plan for d/c today around 1500 and call back number if any questions or concerns. EVAN faxed d/c summary to [facility] to review. Plan: Patient to d/c to [facility] today via facility van at 1500. GEOFF Pardo Original Note: DCP SNF Discharge Per MD, pt is medically stable to d/c to SNF today. EVAN called [facility] and confirmed they can accept pt today and they are working on setting transport time via their facility van. JEYSON brennan faxing signed med rec, PASRR, d/c summary to [facility]. Plan: SW following for return call from [facility] to determine time of transport today and updated pt and family. GEOFF Pardo
--- NOTE | 2019-03-30 09:53 | PT.IPTN ---
Current Diagnoses Chronic pulmonary edema (03/27/19) Physical Therapy Treatment Note M2 PT-IP Current Condition Start: 03/28/19 13:32 Freq: NEEDED Status: Active Protocol: Document 03/28/19 17:21 SAK (Rec: 03/28/19 17:26 SAK [id number]) Physical Therapy Current Condition Current Condition Evaluation Date 03/28/19 Treatment Diagnosis pulmonary edema, LLE venous stasis ulcer, impaired mobility Onset Date 03/27/19 Precautions Other Precautions caution for skin breakdown Lymphedema: legs to be wrapped Weight Bearing Status Weight Bearing Status Full Weight Bearing M3 PT-IP Subjective Start: 03/28/19 13:32 Freq: NEEDED Status: Active Protocol: Document 03/30/19 09:18 LJ (Rec: 03/30/19 09:53 LJ [id number]) Subjective Physical Therapy Visit Type Type Treatment Note Visit Start Time 09:18 Visit Stop Time 09:30 Total Visit Minutes 12 Number of [employer] Visits 1 Physical Therapy Visit Comments Patient Comments pt agreeable to do PT Therapy Pain Assessment Pain When Pain Assessed During Mobility Pain Present Pain Present Pain Reported M4 PT-IP Mobility and Gait Start: 03/28/19 13:32 Freq: NEEDED Status: Active Protocol: Document 03/30/19 09:18 LJ (Rec: 03/30/19 09:53 LJ [id number]) PT-Bed Mobility Assessment Supine to Sit Supine to Sit Moderate Assistance,1 Person Assistance,Head of Bed Elevated,Bedrails Scooting Scooting to Edge of Bed Moderate Assistance PT-Transfer Assessment Sit to and From Stand Sit to and from Stand Contact Guard Assistance,1 Person Assistance Equipment Transfer Assistive Device Gait Belt,Front Wheeled Walker Transfers Transfer Destination Chair Transfer Technique pt transferred stand step pivot x 1, then ambulated with FWW x 1 to chair Transfer Ability Level of Assist Contact Guard Assistance,1 Person Assistance,Use of Upper Extremities Comments Mobility Comments Pt requiring ModA for all bed mobility. Attempting to use FWW for pulling support. Needed mod cueiing for hand placement to assist himself in scooting to side of bed. Nursing requested he sit in chair to take vitals. Gait Assessment Gait Gait Assistance Required: Contact Guard Assist Distance (Feet) 5 Assistive Devices Assistive Device Gait Belt,Front Wheeled Walker Orthotic/Prosthetic Devices or Brace: No Gait Deviations General Gait Pattern Antalgic,Decreased Stride Length,Decreased Feet Clearance,Wide Based Gait Factors Limiting Gait Function Factors Limiting Gait Function Decreased Activity Tolerance, Decreased Strength,Limited Range of Motion,Pain,Poor Balance,Poor Safety Awareness, Respiratory Distress Comments Gait Comments Pt completed bed mobility with ModA and ambulated to chair ~ 4'. Nursing requested he sit in chair to assess vitals for medication administration. M5 PT-IP Objective Assessments Start: 03/28/19 13:32 Freq: NEEDED Status: Active Protocol: Document 03/28/19 16:06 AW (Rec: 03/28/19 16:47 AW [id number]) Orientation Orientation/Cognition Level of Alertness Alert Orientation Name,Day of Week,Place, Situation Language Function Ability No Deficits Noted Safety Awareness Understands Safety Issues Memory Description No Deficits Noted Gross Range of Motion Lower Extremity ROM Assessment Bilaterally Impaired Impairments Able to flex hips against gravity in sitting but not through full range. Left knee lacking ~5 degrees extension Strength Lower Extremity Strength Assessment Bilaterally Impaired Hip 3+/5 Knee 4/5 Comments Strength Comments Difficult to assess due to pt habitus. Pt with difficulty lifting left leg due to edema. Sensation Assessment Comments Sensation Comments Intact light touch per pt M6 PT-IP Treatment Start: 03/28/19 13:32 Freq: NEEDED Status: Active Protocol: Document 03/30/19 09:18 LJ (Rec: 03/30/19 09:53 LJ [id number]) Physical Therapy Treatment Education Education Provided Safety M7 PT-IP Assessment and Plan Start: 03/28/19 13:32 Freq: NEEDED Status: Active Protocol: Document 03/30/19 09:18 LJ (Rec: 03/30/19 09:53 LJ [id number]) PT Summary Assessment and Plan Potential Rehabilitation Potential Good Status of Condition at Evaluation Evolving Summary Impairments Pain,Strength,Balance,Bed Mobility,Transfers,Gait, Activity Tolerance Progress Towards Goals Slow Progress due to Medical Issues,Slow Progress due to Activity Tolerance Assessment Summary Pt on room air at 91% O2 sat in bed. ModA for all bed mobility with cueing for hand placement. Vitals while seated BP 157/71, HR 83, O2 91%. Pt fatigues after several steps ambulating to chair. Goals Bed Mobility Goal Standby Assistance Transfer Goal Independent,Front Wheeled Walker Gait Goal Independent,Front Wheel Walker Gait Distance 150 feet Other Goals up/down 5 steps with left rail ascending SBA Decrease LE edema through lymphedema wrapping. Nursing to be instructed as possible. Days to Meet Goals 10 Frequency of Treatment Frequency Of Treatment Once a Day Treatment Plan Physical Therapy Treatment Plan Bed Mobility Training,Transfer Training,Gait Training, Therapeutic Exercise,Balance Retraining,Discharge Planning, Hot or Cold Pack,Neuromuscular Re-ed Other Recommendations and Next Treatment bed mobility, progress gait Focus distance, trial stairs if able Recommendations To Nursing Amount of Assist Needed Mechanical Lift Discharge Recommendations PT Discharge Recommendations SNF Rehab Equipment Needed for Home Before defer to rehab setting Discharge
--- NOTE | 2019-03-30 10:42 | PC.NURSE ---
Addendum entered by Vera Scott R.N. 03/30/19 15:38: Pt just discharged to snf and report called at 1430 Original Note: 0830- Patient is A&Ox3, he denies pain. Given naproxen for generalized comfort as patient takes this at home. Up to chair with physical therapy, he is a one person assist with gait belt and walker. Patient does become short of breath with exertion. He can only go short distances at a time. Pt has multiple skin issues to his lower legs, which are wrapped in leg dressings up to knees, bruising to arms, redness to groin and folds (applying nystatin cream to area's of redness. BS cta, high 90s on room air. Pt will be discharging to [facility] at 1500. He is up in chair and resting comfortably.
--- NOTE | 2019-03-31 15:57 | PT.IPTN ---
Current Diagnoses Chronic pulmonary edema (03/27/19) Physical Therapy Treatment Note M2 PT-IP Current Condition Start: 03/28/19 13:32 Freq: NEEDED Status: Discharge Protocol: Document 03/28/19 17:21 SAK (Rec: 03/28/19 17:26 SAK [id number]) Physical Therapy Current Condition Current Condition Evaluation Date 03/28/19 Treatment Diagnosis pulmonary edema, LLE venous stasis ulcer, impaired mobility Onset Date 03/27/19 Precautions Other Precautions caution for skin breakdown Lymphedema: legs to be wrapped Weight Bearing Status Weight Bearing Status Full Weight Bearing M3 PT-IP Subjective Start: 03/28/19 13:32 Freq: NEEDED Status: Discharge Protocol: Document 03/30/19 09:18 LJ (Rec: 03/30/19 09:53 LJ [id number]) Subjective Physical Therapy Visit Type Type Treatment Note Visit Start Time 09:18 Visit Stop Time 09:30 Total Visit Minutes 12 Number of NET SOFTWARE ARCHITECT Visits 1 Physical Therapy Visit Comments Patient Comments pt agreeable to do PT Therapy Pain Assessment Pain When Pain Assessed During Mobility Pain Present Pain Present Pain Reported M4 PT-IP Mobility and Gait Start: 03/28/19 13:32 Freq: NEEDED Status: Discharge Protocol: Document 03/30/19 09:18 LJ (Rec: 03/30/19 09:53 LJ [id number]) PT-Bed Mobility Assessment Supine to Sit Supine to Sit Moderate Assistance,1 Person Assistance,Head of Bed Elevated,Bedrails Scooting Scooting to Edge of Bed Moderate Assistance PT-Transfer Assessment Sit to and From Stand Sit to and from Stand Contact Guard Assistance,1 Person Assistance Equipment Transfer Assistive Device Gait Belt,Front Wheeled Walker Transfers Transfer Destination Chair Transfer Technique pt transferred stand step pivot x 1, then ambulated with FWW x 1 to chair Transfer Ability Level of Assist Contact Guard Assistance,1 Person Assistance,Use of Upper Extremities Comments Mobility Comments Pt requiring ModA for all bed mobility. Attempting to use FWW for pulling support. Needed mod cueiing for hand placement to assist himself in scooting to side of bed. Nursing requested he sit in chair to take vitals. Gait Assessment Gait Gait Assistance Required: Contact Guard Assist Distance (Feet) 5 Assistive Devices Assistive Device Gait Belt,Front Wheeled Walker Orthotic/Prosthetic Devices or Brace: No Gait Deviations General Gait Pattern Antalgic,Decreased Stride Length,Decreased Feet Clearance,Wide Based Gait Factors Limiting Gait Function Factors Limiting Gait Function Decreased Activity Tolerance, Decreased Strength,Limited Range of Motion,Pain,Poor Balance,Poor Safety Awareness, Respiratory Distress Comments Gait Comments Pt completed bed mobility with ModA and ambulated to chair ~ 4'. Nursing requested he sit in chair to assess vitals for medication administration. M5 PT-IP Objective Assessments Start: 03/28/19 13:32 Freq: NEEDED Status: Discharge Protocol: Document 03/28/19 16:06 AW (Rec: 03/28/19 16:47 AW [id number]) Orientation Orientation/Cognition Level of Alertness Alert Orientation Name,Day of Week,Place, Situation Language Function Ability No Deficits Noted Safety Awareness Understands Safety Issues Memory Description No Deficits Noted Gross Range of Motion Lower Extremity ROM Assessment Bilaterally Impaired Impairments Able to flex hips against gravity in sitting but not through full range. Left knee lacking ~5 degrees extension Strength Lower Extremity Strength Assessment Bilaterally Impaired Hip 3+/5 Knee 4/5 Comments Strength Comments Difficult to assess due to pt habitus. Pt with difficulty lifting left leg due to edema. Sensation Assessment Comments Sensation Comments Intact light touch per pt M6 PT-IP Treatment Start: 03/28/19 13:32 Freq: NEEDED Status: Discharge Protocol: Document 03/30/19 09:18 LJ (Rec: 03/30/19 09:53 LJ [id number]) Physical Therapy Treatment Education Education Provided Safety M7 PT-IP Assessment and Plan Start: 03/28/19 13:32 Freq: NEEDED Status: Discharge Protocol: Document 03/30/19 09:18 LJ (Rec: 03/30/19 09:53 LJ [id number]) PT Summary Assessment and Plan Potential Rehabilitation Potential Good Status of Condition at Evaluation Evolving Summary Impairments Pain,Strength,Balance,Bed Mobility,Transfers,Gait, Activity Tolerance Progress Towards Goals Slow Progress due to Medical Issues,Slow Progress due to Activity Tolerance Assessment Summary Pt on room air at 91% O2 sat in bed. ModA for all bed mobility with cueing for hand placement. Vitals while seated BP 157/71, HR 83, O2 91%. Pt fatigues after several steps ambulating to chair. Goals Bed Mobility Goal Standby Assistance Transfer Goal Independent,Front Wheeled Walker Gait Goal Independent,Front Wheel Walker Gait Distance 150 feet Other Goals up/down 5 steps with left rail ascending SBA Decrease LE edema through lymphedema wrapping. Nursing to be instructed as possible. Days to Meet Goals 10 Frequency of Treatment Frequency Of Treatment Once a Day Treatment Plan Physical Therapy Treatment Plan Bed Mobility Training,Transfer Training,Gait Training, Therapeutic Exercise,Balance Retraining,Discharge Planning, Hot or Cold Pack,Neuromuscular Re-ed Other Recommendations and Next Treatment bed mobility, progress gait Focus distance, trial stairs if able Recommendations To Nursing Amount of Assist Needed Mechanical Lift Discharge Recommendations PT Discharge Recommendations SNF Rehab Equipment Needed for Home Before defer to rehab setting Discharge
== END 2019-03-30 15:37 | DRG 189 ==
LOC: ED 16:05 → AC 16:19
PROVIDERS: Admitting Provider Family Medicine; Emergency Provider Nurse Practitioner Family; PCP Family Medicine; Visit Provider Family Medicine
DX: J81.0 Acute pulmonary edema (principal); L97.929 Non-pressure chronic ulcer of unspecified part of left lower leg with unspecified severity; Z68.43 Body mass index [BMI] 50.0-59.9, adult; E66.01 Morbid (severe) obesity due to excess calories; I89.0 Lymphedema, not elsewhere classified; R09.02 Hypoxemia; E78.5 Hyperlipidemia, unspecified; I10 Essential (primary) hypertension; E03.9 Hypothyroidism, unspecified; F32.9 Major depressive disorder, single episode, unspecified; G89.29 Other chronic pain; Z87.891 Personal history of nicotine dependence; R29.6 Repeated falls
CPT/HCPCS: 36415; 36569; 71045; 71275; 80048; 80053; 81003; 82550; 83605; 83690; 83735; 83880; 84145; 84484; 85025; 85379; 85610; 85730; 93005; 93010; 94660; 94760; 94762; 96374; 97116; 97140; 97162; 97165; 99223; 99232; 99233; 99238; 99284; 99285; C8929; J0696; J1642; J1650; J1940; Q9957; Q9967